=== PATIENT | female | born 1940 | race Caucasian/White ===

== ENCOUNTER 2020-08-26 17:55 | Inpatient (IN) | payer MEDICARE, SELFPAY ==
[2020-08-26 18:12] VITALS: BP 142/64; PULSE 78; RESP 15; TEMP 37.1; O2SAT 96; BMI 33.0
--- NOTE | 2020-08-26 18:47 | CT_ITS ---
EXAMINATION: CT CHEST, ABDOMEN AND PELVIS WITHOUT CONTRAST CLINICAL INFORMATION: Question of COVID pneumonia and back pain after falling on back with question of spine fracture. COMPARISON: No pertinent prior studies are available for comparison. TECHNIQUE: Multidetector volumetric imaging was performed from the thoracic inlet through the pubic symphysis without IV contrast. Sagittal and coronal reformatted images were obtained on the technologist's workstation. This CT examination was performed using dose optimization techniques as appropriate, variously including the following: *Automated exposure control. *Adjustment of mA and/or kV according to patient size (this includes techniques or standardized protocols for targeted exams where dose is matched to indication/reason for exam; i.e. extremities or head). *Use of iterative reconstruction technique. DLP: 3236 mGy-cm FINDINGS: CHEST: Lung: Some chronic-appearing changes are present in the lungs with some peripheral opacities and bronchiectasis, most marked in the lower lobes. Areas of peribronchial infiltrate are noted in the left upper lobe abutting the major fissure (series 35 images 167 through 211). Bibasilar atelectasis is seen. A 6 mm ovoid lung nodule is present at the right lung base (series 35 image 301). Mediastinum: A left chest wall pacer is present with one lead in the atria and the other at the right ventricular apex. Some small mediastinal nodes are present but no adenopathy is seen. The main pulmonary artery is prominent in size measuring 3.7 cm. Pericardium/Pleura: No significant effusion. No pleural mass or thickening. Chest Wall/Axilla: Unremarkable. No spine or rib fracture is seen. ABDOMEN/PELVIS: Peritoneal Space: No significant free air or free fluid identified. Liver, Gallbladder, Biliary Tree: The liver is normal in size, shape, and attenuation. Two hypodensities are seen in the liver, one in the right lobe measuring only 3 mm (series 39 image 18) and one in the left lobe measuring 0.8 cm. The larger abnormality measures 8 Hounsfield units and is consistent with a simple cyst. The smaller density is almost certainly a cyst as well. No suspicious focal hepatic lesion or biliary ductal dilatation is present. The gallbladder contains layering high density gallstones but is otherwise unremarkable without evidence of wall thickening, or obvious pericholecystic inflammatory changes. Pancreas: Unremarkable. Spleen: Unremarkable. Adrenal Glands: Unremarkable. Kidneys and Ureters: The kidneys are normal in size, shape, and attenuation. No hydronephrosis, hydroureter, or calculi seen. No perinephric stranding. Bladder: Unremarkable. Gastrointestinal Tract: Colonic diverticular changes are present without diverticulitis. The small and large bowel are otherwise unremarkable. The appendix is unremarkable. Abdominal Wall: No significant hernia is appreciated. Lymph Nodes: No lymphadenopathy. Vascular: Minimal calcific atherosclerotic change present in the aorta without aneurysm. The IVC appears unremarkable. PELVIC VISCERA: Status post hysterectomy. An abnormal adnexal mass is not seen. No free intraperitoneal fluid is seen. OSSEUS STRUCTURES: Mild degenerative changes are noted in the spine. No bony destructive lesions are seen. No acute spinal fracture is detected. CT/CT abdomen wo con IMPRESSION: 1. Chronic lung changes with one area of infiltrate abutting the fissure in the left upper lobe. 2. Small right lower lobe 6 mm pulmonary nodule. 3. Cholelithiasis without cholecystitis. 4. Incidentally noted hepatic cysts, colonic diverticular changes and hysterectomy. 5. No spinal fracture is seen.
--- NOTE | 2020-08-26 18:47 | CT_ITS ---
EXAMINATION: CT HEAD WITHOUT CONTRAST CT CERVICAL SPINE WITHOUT CONTRAST CLINICAL INFORMATION: Seizures. Fall. COMPARISON: None. TECHNIQUE: Imaging was performed from the skull base to vertex without intravenous administration of contrast. In addition, helical noncontrast CT imaging was acquired through the cervical spine and source images were reviewed along with axial reconstructions and sagittal and coronal MPRs. [This CT examination was performed using dose optimization techniques as appropriate, variously including the following: *Automated exposure control *Adjustment of mA and/or kV according to patient size (this includes techniques or standardized protocols for targeted exams where dose is matched to indication/reason for exam; i.e. extremities or head) *Use of iterative reconstruction technique] DLP: 10.25+620.54+ 517.99 +507.20 mGy-cm FINDINGS: HEAD: No intracranial mass, hemorrhage, or midline shift is visualized. There is atrophy with prominence of the ventricles and the sulci and hypodensity of the periventricular white matter due to chronic small vessel ischemic disease. There are vascular calcifications of the internal carotid arteries bilaterally. . No extra-axial collections are identified. The paranasal sinuses and mastoid air cells are well aerated. CERVICAL SPINE: There is no evidence of acute cervical spine fracture. Vertebral bodies remain normal in height. Cervical vertebrae have normal alignment. There is multilevel degenerative spondylosis of the cervical spine with disc height narrowing and endplate spurs and facet joint arthrosis No pre- or paravertebral soft tissue abnormality is identified. Limited assessment of the lung apices is unremarkable. CT/CT cervical spine wo con IMPRESSION: 1. No acute intracranial pathology. 2. No CT evidence of acute cervical spine fracture or traumatic subluxation
--- NOTE | 2020-08-26 19:00 | ED_ITS ---
HPI - General Adult General Chief complaint: Weakness Stated complaint: FALL,BODY PAIN Time Seen by Provider: 08/26/20 18:47 Source: patient Mode of arrival: ambulatory Limitations: no limitations History of Present Illness HPI narrative: Patient presents to ED for upper or lower back pain after falling out of bed. Patient states she had a seizure in her bed which caused her to roll lost a better fall to her back. Patient states also she has been feeling weak for the past 4 days with headache. Patient states her son was recently admitted for COVID-19. Patient admits to increased wheezing. Patient admits to increased wheezing. Patient states known history of seizure, but does not remember the name of her seizure medications. Onset (ago): minute(s) Related Data Allergies Allergy/AdvReac Type Severity Reaction Status Date / Time aspirin [ASPIRIN] Allergy Unknown VOMITING Verified 08/26/20 21:03 Review of Systems Review of Systems: Yes all other systems are reviewed and are negative Constitutional: Constitutional: Reports as per HPI, Reports no additional constitutional complaints, Reports body ache(s) and Reports headache(s) Comments: Weakness Eyes: Eyes: Reports as per HPI and Reports no additional eye complaints ENT: Reports system reviewed and no additional complaints, except as documented, Reports as per HPI and Reports headache(s) Cardiovascular: Cardiovascular: Reports as per HPI and Reports no additional cardiovascular complaints Respiratory: Respiratory: Reports as per HPI and Reports no additional respiratory complaints Gastrointestinal: Gastrointestinal: Reports as per HPI and Reports no additional gastrointestinal complaints Genitourinary: Genitourinary: Reports no additional female genitourinary com plaints and Reports as per HPI Musculoskeletal: Musculoskeletal: Reports no additional musculoskeletal complaints, Reports as per HPI and Reports back pain Neurologic: Reports system reviewed and no additional complaints, except as documented, Reports as per HPI and Reports headache(s) Psychiatric: Psychiatric: Reports no additional psychiatric complaints and Reports as per HPI PMF Past Medical History Medical History Arthritis Asthma Seizures Social History Social History Smoking Status: Current some day smoker Use of substances other than those prescribed or required for medical reasons: No Advance Directives: No Advance Directives Information Provided: Yes Physical Exam Vital Signs: Vital Signs: Last Vital Signs Temp 98.2 F 08/27/20 00:54 Pulse 78 08/27/20 00:54 Resp 20 08/27/20 00:54 BP 137/64 08/27/20 00:54 Pulse Ox 94 08/27/20 00:54 Body Mass Index 33.0 Const: General: cooperative, healthy appearing, comfortable, no acute distress, well developed, alert and awake HENMT: Head: Yes normal to inspection, Yes No palpable skull fracture present, Yes normocephalic, Yes atraumatic, No abrasion, No Thomson's sign, No contusion, No cranial bruits, No hematoma, No laceration, No occipital foramen tenderness, No palpable skull fracture, No raccoon eyes, No scalp tenderness, No Temporal artery tenderness present and No periorbital ecchymosis Eyes: General: appearance normal, both eyes and all related structures Neck: Neck: Yes normal visual inspection, Yes full ROM, Yes no lymphadenopathy, Yes no meningeal signs, Yes trachea midline, Yes supple and Yes tender (Positive for cervical spine tenderness) Chest: Chest palpation & inspection: normal inspection of the chest and normal palpation of entire chest wall Resp: Effort & Inspection: normal respiratory effort and able to speak in complete sentences Auscultation: wheezes expiratory wheezes and throughout Cardio: Jugular venous distension: no JVD Heart sounds: S1 normal heart sound present and S2 normal heart sound present GI: Inspection: Yes normal to inspection Palpation (GI): Soft to palpation, not firm, nontender, no guarding and not rigid Back/Spine/Pelvis: Back: back tenderness (Positive for thoracic and lumbar spine tenderness on palpation) Skin: General skin exam: no rashes or lesions noted and elasticity normal Neuro: General: no meningeal signs Extrem: General: Yes normal to inspection and Yes full ROM Psych: Appearance: grossly normal, well kempt and not disheveled Course Course Course Narrative: To patient stating COVID like symptoms and having seizure and informed to the ground patient have a medical workup. Patient admits to having history of seizure but does not remember her medications she takes for seizure. Patient had basic labs also troponin and BNP due to significant wheezing and COVID. Patient will have head CT C-spine dry chest and dry abdomen to make sure there is no spine fracture and bleed fracture. Reevaluation(s) Reevaluation #1: Patient positive for COVID-19 virus. Patient images negative for any fracture of the spine head or neck. Chest CT is negative for COVID pneumonia. Patient labs show RAMESH. Patient to be admitted for COVID and acute kidney injury. Patient not hypoxic. Time: 00:31 Reevaluation #2: Patient UA shows UTI which could be the cause of RAMESH. Due to downtime not able to order lactic acid, blood culture, or IV antibiotics. Will give verbal order for blood culture, lactic acid, and antibiotic. Time: 01:31 Medical Decision Making MDM Narrative Medical decision making narrative: COVID-19. RAMESH Lab Data Result diagrams: 08/26/20 19:57 08/26/20 23:31 Labs: Lab Results 08/26/20 08/26/20 08/26/20 Range/Units 19:57 19:57 19:57 WBC 6.1 (4.8-10.8) X10*3/uL RBC 3.78 L (4.20-5.50) X10*6/uL Hgb 11.7 L (12.0-16.0) g/dl Hct 35.9 L (37-47) % MCV 95.0 (80-98) fL MCH 31.0 (27.0-33.0) pg MCHC 32.6 (31.0-35.0) g/dl RDW 14.5 (11.0-16.0) % Plt Count 100 L (160-400) X10*3/uL MPV 12.5 H (9.4-12.3) fL Immature Gran % (Auto) 0.3 (0.0-0.4) % Neut % (Auto) 67.5 (45-73) % Lymph % (Auto) 19.3 L (20-40) % [place] % (Auto) 12.7 H (2-11) % Eos % (Auto) 0.0 (0-4) % Baso % (Auto) 0.2 (0-2) % Lymph # (Auto) 1.2 (1.2-4.9) X10*3/uL [place] # (Auto) 0.8 (0.1-1.2) X10*3/uL Eos # (Auto) 0.0 (0.0-0.4) X10*3/uL Baso # (Auto) 0.0 (0.0-0.2) X10*3/uL Abs Immat Gran (auto) 0.02 (0.00-0.03) X10*3/uL Absolute Neuts (auto) 4.1 (2.0-8.3) X10*3/uL Absolute Nucleated RBC 0.000 (0.0-0.012) X10*3/uL Nucleated RBC % (auto) 0.0 (0.0-0.2) /100WBC PT 12.7 (10.8-13.0) SEC INR 1.1 (0.9-1.1) APTT 30.8 (24.1-38.0) SEC Sodium 142 (135-145) mmol/L Potassium 4.3 (3.3-5.1) mmol/l Chloride 102 (96-108) mmol/L Carbon Dioxide 26 (22-29) mmol/L Anion Gap 18 (12-20) BUN 47 H (9-16) mg/dL Creatinine 3.24 H (0.5-1.4) mg/dL Estim Creat Clear Calc 14.5 Estimated GFR 14 Random Glucose 105 (60-115) mg/dL Calcium 8.3 L (8.4-10.2) mg/dL Ferritin 438 H (10-250) ng/mL Total Bilirubin 0.2 (0.0-1.0) mg/dL AST 47 H (5-31) U/L ALT 15 (0-31) U/L Alkaline Phosphatase 41 (39-117) U/L Lactate Dehydrogenase 514 H (122-220) U/L Troponin I High Sens (<3.5-17.0) ng/L B-Natriuretic Peptide (<100) pg/mL Total Protein 7.3 (6.5-8.0) g/dL Albumin 4.1 (3.5-5.0) g/dL Procalcitonin ng/mL Urine Color Urine Appearance Urine pH (5.0-8.0) Ur Specific [place] (1.005-1.025) Urine Protein (NEG-TRACE) MG/DL Urine Glucose (UA) (NEG) MG/DL Urine Ketones (NEG) MG/DL Urine Blood (NEG) Urine Nitrite (NEG) Ur Leukocyte Esterase (NEG) Urine RBC (0) /HPF Urine WBC (0-4) /HPF Ur Squamous Epith Cells /LPF Urine Bacteria /LPF Other Casts /LPF Coronavirus (PCR) (Negative) Influenza Type A (PCR) (Negative) Influenza Type B (PCR) (Negative) RSV RNA Qual (PCR) (Negative) 08/26/20 08/26/20 08/26/20 Range/Units 19:57 19:57 19:57 WBC (4.8-10.8) X10*3/uL RBC (4.20-5.50) X10*6/uL Hgb (12.0-16.0) g/dl Hct (37-47) % MCV (80-98) fL MCH (27.0-33.0) pg MCHC (31.0-35.0) g/dl RDW (11.0-16.0) % Plt Count (160-400) X10*3/uL MPV (9.4-12.3) fL Immature Gran % (Auto) (0.0-0.4) % Neut % (Auto) (45-73) % Lymph % (Auto) (20-40) % [place] % (Auto) (2-11) % Eos % (Auto) (0-4) % Baso % (Auto) (0-2) % Lymph # (Auto) (1.2-4.9) X10*3/uL [place] # (Auto) (0.1-1.2) X10*3/uL Eos # (Auto) (0.0-0.4) X10*3/uL Baso # (Auto) (0.0-0.2) X10*3/uL Abs Immat Gran (auto) (0.00-0.03) X10*3/uL Absolute Neuts (auto) (2.0-8.3) X10*3/uL Absolute Nucleated RBC (0.0-0.012) X10*3/uL Nucleated RBC % (auto) (0.0-0.2) /100WBC PT (10.8-13.0) SEC INR (0.9-1.1) APTT (24.1-38.0) SEC Sodium (135-145) mmol/L Potassium (3.3-5.1) mmol/l Chloride (96-108) mmol/L Carbon Dioxide (22-29) mmol/L Anion Gap (12-20) BUN (9-16) mg/dL Creatinine (0.5-1.4) mg/dL Estim Creat Clear Calc Estimated GFR Random Glucose (60-115) mg/dL Calcium (8.4-10.2) mg/dL Ferritin (10-250) ng/mL Total Bilirubin (0.0-1.0) mg/dL AST (5-31) U/L ALT (0-31) U/L Alkaline Phosphatase (39-117) U/L Lactate Dehydrogenase (122-220) U/L Troponin I High Sens 57.4 H (<3.5-17.0) ng/L B-Natriuretic Peptide 41 (<100) pg/mL Total Protein (6.5-8.0) g/dL Albumin (3.5-5.0) g/dL Procalcitonin 1.09 ng/mL Urine Color Urine Appearance Urine pH (5.0-8.0) Ur Specific [place] (1.005-1.025) Urine Protein (NEG-TRACE) MG/DL Urine Glucose (UA) (NEG) MG/DL Urine Ketones (NEG) MG/DL Urine Blood (NEG) Urine Nitrite (NEG) Ur Leukocyte Esterase (NEG) Urine RBC (0) /HPF Urine WBC (0-4) /HPF Ur Squamous Epith Cells /LPF Urine Bacteria /LPF Other Casts /LPF Coronavirus (PCR) POSITIVE A (Negative) Influenza Type A (PCR) NEGATIVE (Negative) Influenza Type B (PCR) NEGATIVE (Negative) RSV RNA Qual (PCR) NEGATIVE (Negative) 08/26/20 08/26/20 08/27/20 Range/Units 23:31 23:31 00:52 WBC (4.8-10.8) X10*3/uL RBC (4.20-5.50) X10*6/uL Hgb (12.0-16.0) g/dl Hct (37-47) % MCV (80-98) fL MCH (27.0-33.0) pg MCHC (31.0-35.0) g/dl RDW (11.0-16.0) % Plt Count (160-400) X10*3/uL MPV (9.4-12.3) fL Immature Gran % (Auto) (0.0-0.4) % Neut % (Auto) (45-73) % Lymph % (Auto) (20-40) % [place] % (Auto) (2-11) % Eos % (Auto) (0-4) % Baso % (Auto) (0-2) % Lymph # (Auto) (1.2-4.9) X10*3/uL [place] # (Auto) (0.1-1.2) X10*3/uL Eos # (Auto) (0.0-0.4) X10*3/uL Baso # (Auto) (0.0-0.2) X10*3/uL Abs Immat Gran (auto) (0.00-0.03) X10*3/uL Absolute Neuts (auto) (2.0-8.3) X10*3/uL Absolute Nucleated RBC (0.0-0.012) X10*3/uL Nucleated RBC % (auto) (0.0-0.2) /100WBC PT (10.8-13.0) SEC INR (0.9-1.1) APTT (24.1-38.0) SEC Sodium 142 (135-145) mmol/L Potassium 4.2 (3.3-5.1) mmol/l Chloride 107 (96-108) mmol/L Carbon Dioxide 21 L (22-29) mmol/L Anion Gap 18 (12-20) BUN 45 H (9-16) mg/dL Creatinine 2.93 H (0.5-1.4) mg/dL Estim Creat Clear Calc 16.0 Estimated GFR 15 Random Glucose 96 (60-115) mg/dL Calcium 8.1 L (8.4-10.2) mg/dL Ferritin (10-250) ng/mL Total Bilirubin 0.3 (0.0-1.0) mg/dL AST 43 H (5-31) U/L ALT 15 (0-31) U/L Alkaline Phosphatase 39 (39-117) U/L Lactate Dehydrogenase (122-220) U/L Troponin I High Sens 42.8 H (<3.5-17.0) ng/L B-Natriuretic Peptide (<100) pg/mL Total Protein 6.6 (6.5-8.0) g/dL Albumin 3.7 (3.5-5.0) g/dL Procalcitonin ng/mL Urine Color YELLOW Urine Appearance CLOUDY Urine pH 5.5 (5.0-8.0) Ur Specific [place] 1.015 (1.005-1.025) Urine Protein TRACE (NEG-TRACE) MG/DL Urine Glucose (UA) NEG (NEG) MG/DL Urine Ketones NEG (NEG) MG/DL Urine Blood 2+ H (NEG) Urine Nitrite POS H (NEG) Ur Leukocyte Esterase 1+ H (NEG) Urine RBC 1-4 (0) /HPF Urine WBC 30-49 H (0-4) /HPF Ur Squamous Epith Cells 2+ /LPF Urine Bacteria 4+ /LPF Other Casts /LPF Coronavirus (PCR) (Negative) Influenza Type A (PCR) (Negative) Influenza Type B (PCR) (Negative) RSV RNA Qual (PCR) (Negative) ECG Data Interpretation: Normal sinus rhythm. Normal EKG. Ventricular rate 70. NC interval 134. QRS 90. QTC 414. Negative STEMI Discharge Plan Discharge Clinical Impression: COVID-19, Acute kidney injury, Acute UTI Patient Disposition: Admitted As Inpatient
[2020-08-26 19:08] VITALS: PULSE 62; O2SAT 87
[2020-08-26] MEDS: Albuterol Sulfate 90 MCG 8 GM INHALER 4 PUFF INHALE (19:08)
[2020-08-26 19:59] VITALS: RESP 20
[2020-08-26 20:00] VITALS: BP 142/64; PULSE 62; RESP 20; TEMP 37.1; O2SAT 96
[2020-08-26 20:01] LABS: MANUAL DIFF FLAG NO
[2020-08-26 20:03] LABS: Basophils Percent Auto 0.2 % (0-2); Hematocrit 35.9 % (37-47); Hemoglobin 11.7 g/dl (12.0-16.0); Imm Gran Abs Auto 0.02 X10*3/uL (0.00-0.03); Imm Gran Pct Auto 0.3 % (0.0-0.4); Lymphocytes Absolute Auto 1.2 X10*3/uL (1.2-4.9); Lymphocytes Percent Auto 19.3 % (20-40); Mean Corpuscular HGB Conc 32.6 g/dl (31.0-35.0); Mean Platelet Volume 12.5 fL (9.4-12.3); Monocytes Absolute Auto 0.8 X10*3/uL (0.1-1.2); Monocytes Percent Auto 12.7 % (2-11); Neutrophils Absolute Auto 4.1 X10*3/uL (2.0-8.3); Neutrophils Percent Auto 67.5 % (45-73); Platelet Count 100 X10*3/uL (160-400); Red Blood Count 3.78 X10*6/uL (4.20-5.50); Red Cell Distribution Width 14.5 % (11.0-16.0); White Blood Count 6.1 X10*3/uL (4.8-10.8)
[2020-08-26 20:09] LABS: INTERNATIONAL NORM RATIO 1.1 (0.9-1.1); Prothrombin Time 12.7 SEC (10.8-13.0)
[2020-08-26] MEDS: 0.9 % Sodium Chloride 1,000 ML 999 ML IV ×2 (20:09→23:14)
[2020-08-26] MEDS: Magnesium Sulfate/H2O 2 GM/50 ML PIGGYBACK IV (20:09)
[2020-08-26 20:11] LABS: Partial Thromboplastin Time 30.8 SEC (24.1-38.0)
[2020-08-26 20:35] LABS: Alanine Aminotransferase 15 U/L (0-31); Albumin Level 4.1 g/dL (3.5-5.0); Alkaline Phosphatase 41 U/L (39-117); Anion Gap 18 (12-20); Aspartate Amino Transferase 47 U/L (5-31); Bilirubin Total 0.2 mg/dL (0.0-1.0); Blood Urea Nitrogen 47 mg/dL (9-16); Calcium 8.3 mg/dL (8.4-10.2); Carbon Dioxide 26 mmol/L (22-29); Chloride 102 mmol/L (96-108); Creatinine Clr Calc Pharmacy 14.5; Estimated Glomerular Filt Rate 14; Glucose Random 105 mg/dL (60-115); Lactate Dehydrogenase 514 U/L (122-220); Potassium 4.3 mmol/l (3.3-5.1); Sodium 142 mmol/L (135-145); Total Protein 7.3 g/dL (6.5-8.0)
[2020-08-26 20:44] LABS: B Type Natriuretic Peptide 41 pg/mL (<100); Troponin-I High Sensitivity 57.4 ng/L (<3.5-17.0)
--- NOTE | 2020-08-26 20:50 | PC.NURSE ---
Christopher Costa, son of pt, . Christopher concerned for lack of VNA services at home and son providing those services but is not qualified per Christopher. Request for case management. Akira heath aware. No order at this time- r/u admission.
[2020-08-26 20:55] LABS: Ferritin 438 ng/mL (10-250)
[2020-08-26 21:03] LABS: Procalcitonin 1.09 ng/mL
--- NOTE | 2020-08-26 21:18 | PC.NURSE ---
Patient's troponin is elevated and provider aware. Patient have a redraw in 3 hrs.
[2020-08-26 22:06] VITALS: BP 126/54; PULSE 67; RESP 21; TEMP 36.8; O2SAT 94
[2020-08-26 22:06] LABS: Influenza A PCR NEGATIVE (Negative); Influenza B PCR NEGATIVE (Negative); Resp Syncy Virus RNA Qual PCR NEGATIVE (Negative); SARS COV2 PCR INHOUSE POSITIVE (Negative)
[2020-08-27] VITALS (11 sets, daily range): BP systolic 98–179; BP diastolic 41–82; PULSE 57–88; RESP 16–25; TEMP 35.4–38.8; O2SAT 2–98
[2020-08-27] LABS: Alanine Aminotransferase 15 U/L (0-31); Albumin Level 3.7 g/dL (3.5-5.0); Alkaline Phosphatase 39 U/L (39-117); Anion Gap 18 (12-20); Aspartate Amino Transferase 43 U/L (5-31); Bilirubin Total 0.3 mg/dL (0.0-1.0); Blood Urea Nitrogen 45 mg/dL (9-16); Calcium 8.1 mg/dL (8.4-10.2); Carbon Dioxide 21 mmol/L (22-29); Chloride 107 mmol/L (96-108); Estimated Glomerular Filt Rate 15; Glucose Random 96 mg/dL (60-115); Potassium 4.2 mmol/l (3.3-5.1); Sodium 142 mmol/L (135-145); Total Protein 6.6 g/dL (6.5-8.0)
[2020-08-27 00:12] LABS: Troponin-I High Sensitivity 42.8 ng/L (<3.5-17.0)
--- NOTE | 2020-08-27 00:33 | ECG_ITS ---
Test Reason : SOB Blood Pressure : / mmHG Vent. Rate : 070 BPM Atrial Rate : 070 BPM P-R Int : 134 ms QRS Dur : 090 ms QT Int : 384 ms P-R-T Axes : 084 011 048 degrees QTc Int : 414 ms Normal sinus rhythm Normal ECG When compared with ECG of 15-APR-2002 13:15, QRS voltage has decreased Referred By: Mike Marcum Electronically Signed By:RAQUEL REINA
[2020-08-27 01:03] LABS: Appearance Urine CLOUDY; Color Urine YELLOW; Glucose Urine UA NEG (NEG); Leukocyte Esterase Urine 1+ (NEG); Nitrite Urine POS (NEG); PH 5.5 (5.0-8.0); Specific Gravity - Urine 1.015 (1.005-1.025); Urine Blood 2+ (NEG); Urine Ketones NEG (NEG); Urine Protein TRACE MG/DL (NEG-TRACE)
[2020-08-27 01:10] LABS: Bacteria Urine 4+ /LPF; Squamous Epithelial Cell Urine 2+ /LPF; WBC Urine 30-49 /HPF (0-4)
[2020-08-27] MEDS: Acetaminophen 325 MG TABLET 650 MG PO ×2 (02:57→11:59)
[2020-08-27] MEDS: cefTRIAXone sodium 1 GM in 0.9 % Sodium Chloride 50 ML IV ×2 (02:58→08:11)
[2020-08-27 03:07] LABS: Lactic Acid 1.2 mmol/L (0.5-2.0)
--- NOTE | 2020-08-27 06:52 | PM.IMHP ---
History of Present Illness Date of Service: 08/27/20 Chief Complaint: Weakness, shortness of breath, coughing This is a 80-year-old female with past medical history of seizures, asthma, arthritis who presents to the hospital with complaints of 4 day history of weakness, coughing, shortness of breath, loss of appetite, nausea. She also had 1 episode of falling while getting out of her bed today due to her severe weakness,patient is also complaining of on of headache.. Otherwise has no change in vision, no chest pain, no diarrhea and no constipation. Patient reports that she has been having low appetite and has not been eating or drinking much. She is also having wheezing. Her son Was recently diagnosed with COVID-19 and he is currently admitted to the hospital. She does complain of urinary urgency, frequency. No lower extremity edema. On arrival to the ED hemodynamically stable but then developed a temperature of 101.2?, respiratory rate of 25, blood pressure of 179/82. Satting 96% on room air When she initially presented to the hospital. Labs are significant for WBC count of 6.1, hemoglobin of 11.7, hematocrit 35.9, BUN of 45, creatinine of 3.24, (baseline unknown- no previous lab on EMR), AST of 43, LDH of 514, high sensitivity troponin of 57.4 dropped and 42.8. UA is positive for nitrites, leukocyte Estrace, WBC. COVID-[address] showing when area of infiltrate in the left upper lobe Past medical history: Seizures, asthma, arthritis Past surgical history: Denies Family history: Denies Social history: Comes from home, lives with family, denies any tobacco alcohol or illicit drugs Review of Systems Review of Systems: Yes all other systems are reviewed and are negative Constitutional: Constitutional: Reports headache(s) ENT: Reports headache(s) Neurologic: Reports system reviewed and no additional complaints, except as documented, Reports as per HPI and Reports headache(s) [facility] Medical History Arthritis Asthma Seizures Social History Smoking Status: Current some day smoker Use of substances other than those prescribed or required for medical reasons: No Advance Directives: No Advance Directives Information Provided: Yes Meds Allergies Allergy/AdvReac Type Severity Reaction Status Date / Time aspirin [ASPIRIN] Allergy Unknown VOMITING Verified 08/26/20 21:03 Physical Exam Vital Signs and Narrative: Vital Signs: Last Vital Signs Temp 98.6 F 08/27/20 06:00 Pulse 57 08/27/20 06:00 Resp 16 08/27/20 06:00 BP 130/59 L 08/27/20 06:00 Pulse Ox 96 08/27/20 06:00 Body Mass Index 33.0 Const: General: cooperative and no acute distress Orientation/consciousness: patient oriented x3 Eyes: General: appearance normal, both eyes and all related structures Resp: Effort & Inspection: normal respiratory effort and able to speak in complete sentences Cardio: Rate: regular rate Rhythm: regular rhythm GI: Palpation (GI): Soft to palpation Auscultation: normal bowel sounds Skin: Other: Patient appears dehydrated General skin exam: no rashes or lesions noted Neuro: General: patient oriented x3 Cognition (Neuro): normal cognition Extrem: General: Yes normal to inspection and Yes no pedal edema Results Labs CBC and Chem 7: 08/26/20 19:57 08/26/20 23:31 Labs: Laboratory Results - last 24 hr 08/26/20 08/26/20 08/26/20 19:57 19:57 19:57 MCV 95.0 MCH 31.0 MCHC 32.6 RDW 14.5 Plt Count 100 L MPV 12.5 H Immature Gran % (Auto) 0.3 Neut % (Auto) 67.5 Lymph % (Auto) 19.3 L [place] % (Auto) 12.7 H Eos % (Auto) 0.0 Baso % (Auto) 0.2 Lymph # (Auto) 1.2 [place] # (Auto) 0.8 Eos # (Auto) 0.0 Baso # (Auto) 0.0 Abs Immat Gran (auto) 0.02 Absolute Neuts (auto) 4.1 Absolute Nucleated RBC 0.000 Nucleated RBC % (auto) 0.0 PT 12.7 INR 1.1 APTT 30.8 Anion Gap 18 Estim Creat Clear Calc 14.5 Estimated GFR 14 Random Glucose 105 Lactic Acid Calcium 8.3 L Ferritin 438 H Total Bilirubin 0.2 AST 47 H ALT 15 Alkaline Phosphatase 41 Lactate Dehydrogenase 514 H Troponin I High Sens B-Natriuretic Peptide Total Protein 7.3 Albumin 4.1 Procalcitonin Urine Color Urine Appearance Urine pH Ur Specific Lottie Urine Protein Urine Glucose (UA) Urine Ketones Urine Blood Urine Nitrite Ur Leukocyte Esterase Urine RBC Urine WBC Ur Squamous Epith Cells Urine Bacteria Other Casts Coronavirus (PCR) Influenza Type A (PCR) Influenza Type B (PCR) RSV RNA Qual (PCR) 08/26/20 08/26/20 08/26/20 19:57 19:57 19:57 MCV MCH MCHC RDW Plt Count MPV Immature Gran % (Auto) Neut % (Auto) Lymph % (Auto) [place] % (Auto) Eos % (Auto) Baso % (Auto) Lymph # (Auto) [place] # (Auto) Eos # (Auto) Baso # (Auto) Abs Immat Gran (auto) Absolute Neuts (auto) Absolute Nucleated RBC Nucleated RBC % (auto) PT INR APTT Anion Gap Estim Creat Clear Calc Estimated GFR Random Glucose Lactic Acid Calcium Ferritin Total Bilirubin AST ALT Alkaline Phosphatase Lactate Dehydrogenase Troponin I High Sens 57.4 H B-Natriuretic Peptide 41 Total Protein Albumin Procalcitonin 1.09 Urine Color Urine Appearance Urine pH Ur Specific Lottie Urine Protein Urine Glucose (UA) Urine Ketones Urine Blood Urine Nitrite Ur Leukocyte Esterase Urine RBC Urine WBC Ur Squamous Epith Cells Urine Bacteria Other Casts Coronavirus (PCR) POSITIVE A Influenza Type A (PCR) NEGATIVE Influenza Type B (PCR) NEGATIVE RSV RNA Qual (PCR) NEGATIVE 08/26/20 08/26/20 08/27/20 23:31 23:31 00:52 MCV MCH MCHC RDW Plt Count MPV Immature Gran % (Auto) Neut % (Auto) Lymph % (Auto) [place] % (Auto) Eos % (Auto) Baso % (Auto) Lymph # (Auto) [place] # (Auto) Eos # (Auto) Baso # (Auto) Abs Immat Gran (auto) Absolute Neuts (auto) Absolute Nucleated RBC Nucleated RBC % (auto) PT INR APTT Anion Gap 18 Estim Creat Clear Calc 16.0 Estimated GFR 15 Random Glucose 96 Lactic Acid Calcium 8.1 L Ferritin Total Bilirubin 0.3 AST 43 H ALT 15 Alkaline Phosphatase 39 Lactate Dehydrogenase Troponin I High Sens 42.8 H B-Natriuretic Peptide Total Protein 6.6 Albumin 3.7 Procalcitonin Urine Color YELLOW Urine Appearance CLOUDY Urine pH 5.5 Ur Specific Lottie 1.015 Urine Protein TRACE Urine Glucose (UA) NEG Urine Ketones NEG Urine Blood 2+ H Urine Nitrite POS H Ur Leukocyte Esterase 1+ H Urine RBC 1-4 Urine WBC 30-49 H Ur Squamous Epith Cells 2+ Urine Bacteria 4+ Other Casts Coronavirus (PCR) Influenza Type A (PCR) Influenza Type B (PCR) RSV RNA Qual (PCR) 08/27/20 02:43 MCV MCH MCHC RDW Plt Count MPV Immature Gran % (Auto) Neut % (Auto) Lymph % (Auto) [place] % (Auto) Eos % (Auto) Baso % (Auto) Lymph # (Auto) [place] # (Auto) Eos # (Auto) Baso # (Auto) Abs Immat Gran (auto) Absolute Neuts (auto) Absolute Nucleated RBC Nucleated RBC % (auto) PT INR APTT Anion Gap Estim Creat Clear Calc Estimated GFR Random Glucose Lactic Acid 1.2 Calcium Ferritin Total Bilirubin AST ALT Alkaline Phosphatase Lactate Dehydrogenase Troponin I High Sens B-Natriuretic Peptide Total Protein Albumin Procalcitonin Urine Color Urine Appearance Urine pH Ur Specific Lottie Urine Protein Urine Glucose (UA) Urine Ketones Urine Blood Urine Nitrite Ur Leukocyte Esterase Urine RBC Urine WBC Ur Squamous Epith Cells Urine Bacteria Other Casts Coronavirus (PCR) Influenza Type A (PCR) Influenza Type B (PCR) RSV RNA Qual (PCR) Imaging Radiologist's Impressions: Impressions Abdomen CT 08/26/20 18:47 IMPRESSION: 1. Chronic lung changes with one area of infiltrate abutting the fissure in the left upper lobe. 2. Small right lower lobe 6 mm pulmonary nodule. 3. Cholelithiasis without cholecystitis. 4. Incidentally noted hepatic cysts, colonic diverticular changes and hysterectomy. 5. No spinal fracture is seen. Cervical Spine CT 08/26/20 18:47 IMPRESSION: 1. No acute intracranial pathology. 2. No CT evidence of acute cervical spine fracture or traumatic subluxation Chest CT 08/26/20 18:47 IMPRESSION: 1. Chronic lung changes with one area of infiltrate abutting the fissure in the left upper lobe. 2. Small right lower lobe 6 mm pulmonary nodule. 3. Cholelithiasis without cholecystitis. 4. Incidentally noted hepatic cysts, colonic diverticular changes and hysterectomy. 5. No spinal fracture is seen. Head CT 08/26/20 18:47 IMPRESSION: 1. No acute intracranial pathology. 2. No CT evidence of acute cervical spine fracture or traumatic subluxation Assessment and Plan (1) COVID-19: Status: Acute (2) Acute kidney injury: Status: Acute (3) Acute UTI: Status: Acute (4) Pneumonia: Qualifiers: Pneumonia type: due to unspecified organism Laterality: left Lung location: upper lobe of lung Qualified Code(s): J18.9 - Pneumonia, unspecified organism Status: Acute 80-year-old female with past medical history of asthma presents to the hospital with multiple complaints found to be COVID-19 positive, has RMAESH as well as UTI. # pneumonia - chest CT shows left upper lobe infiltrate - COVID PCR positive - given the on characteristics CT findings will treat her for community-acquired pneumonia with ceftriaxone and azithromycin -follow cultures # RAMESH - most likely due to dehydration versus secondary to UTI, as patient reports low oral intake - will start IV fluids - follow BMP # UTI - UA positive, has urinary symptoms - start on ceftriaxone - follow urine cultures # asthma - no hypoxia - has significant wheezing - will start on Solu-Medrol and albuterol inhaler PRN DVT ppx: lovenox will change to heparin given RAMESH
[2020-08-27] MEDS: Albuterol Sulfate 90 MCG 8 GM INHALER 4 PUFF INHALE (07:28)
[2020-08-27] MEDS: Azithromycin 500 MG TABLET PO (08:10)
[2020-08-27] MEDS: Enoxaparin Sodium 40 MG/0.4 ML SYRINGE SUBCUT (08:11)
[2020-08-27] MEDS: Lactated Ringers 1,000 ML 100 ML IVCONT ×2 (08:12→18:11)
--- NOTE | 2020-08-27 08:33 | PC.NURSE ---
iv in r ac infiltrated, new iv placed by this rn, heplock # 22 to l thumb
[2020-08-27] MEDS: 0.9 % Sodium Chloride Flush 3 ML SYRINGE IVFLUSH (10:00)
--- NOTE | 2020-08-27 10:38 | PC.NURSE ---
nurse to nurse given to january (rn) pt aware of plan of care.
--- NOTE | 2020-08-27 11:16 | PC.NURSE ---
prior care given prior to pt transport to c. lungs exp wheezing all lobes with increase movement. pt reposition hob up. note passed on to january grijalva) with transport.
--- NOTE | 2020-08-27 15:14 | MHC.CM.PN ---
CM spoke with patient by phone r/t COVID +. Patient reports she is independent, amb with a walker and her son lives with her. Patient does not have a HCP and declines filling one out today. Discussed discharge plan, home no services. Patient will need transportation home. IMM addressed. CM will continue to follow for discharge needs.
--- NOTE | 2020-08-27 15:41 | PM.EVENT ---
Event Note Date of Service: 08/29/20 Event Note: This patient is seen and examined , already seen and examined by the hernia by the hospitalist service earlier Patient says shortness of breath seems slowly improving Denies any chest pain or abdominal pain or fever or chills Physical exam : Cvs: rrr, [id number] , no murmur res: clear to auscultation ,no rhonchii or wheezing abd: no rebound or guarding ,nt, bs present. ext pulses present , no cyanosis neuro: axo3 , nonfocal. assessment and plan coordinated in APCs note, Agree with the plan in addition: Patient admitted for pneumonia, RAMESH on ckd , uti, Will continue gentle hydration and antibiotics Id and Nephro evaluation pending
[2020-08-27] MEDS: traMADoL HCL 50 MG TABLET 25 MG PO (18:07)
[2020-08-28] VITALS (7 sets, daily range): BP systolic 107–134; BP diastolic 53–92; PULSE 60–70; RESP 18–20; TEMP 36.4–36.7; O2SAT 92–96; BMI 33.0
[2020-08-28] MEDS: traMADoL HCL 50 MG TABLET PO ×2 (00:55→22:59)
[2020-08-28] MEDS: Lactated Ringers 1,000 ML 100 ML IVCONT ×2 (03:58→14:08)
[2020-08-28] MEDS: Enoxaparin Sodium 40 MG/0.4 ML SYRINGE SUBCUT (05:39)
[2020-08-28] MEDS: Azithromycin 500 MG TABLET PO (05:39)
[2020-08-28] MEDS: cefTRIAXone sodium 1 GM in 0.9 % Sodium Chloride 50 ML IV (05:43)
[2020-08-28] MEDS: Albuterol Sulfate 90 MCG 8 GM INHALER 4 PUFF INHALE ×2 (06:08→08:00)
[2020-08-28 06:28] LABS: MANUAL DIFF FLAG NO
[2020-08-28 07:18] LABS: Hematocrit 32.1 % (37-47); Hemoglobin 10.3 g/dl (12.0-16.0); Imm Gran Abs Auto 0.04 X10*3/uL (0.00-0.03); Imm Gran Pct Auto 0.6 % (0.0-0.4); Lymphocytes Percent Auto 15.2 % (20-40); Mean Corpuscular HGB Conc 32.1 g/dl (31.0-35.0); Mean Corpuscular Hemoglobin 30.5 pg (27.0-33.0); Mean Platelet Volume 13.2 fL (9.4-12.3); Monocytes Absolute Auto 0.5 X10*3/uL (0.1-1.2); Monocytes Percent Auto 7.1 % (2-11); Neutrophils Absolute Auto 4.9 X10*3/uL (2.0-8.3); Neutrophils Percent Auto 77.1 % (45-73); Platelet Count 124 X10*3/uL (160-400); Red Blood Count 3.38 X10*6/uL (4.20-5.50); Red Cell Distribution Width 14.2 % (11.0-16.0); White Blood Count 6.3 X10*3/uL (4.8-10.8)
[2020-08-28 07:31] LABS: Anion Gap 13 (12-20); Blood Urea Nitrogen 44 mg/dL (9-16); Calcium 8.2 mg/dL (8.4-10.2); Carbon Dioxide 25 mmol/L (22-29); Chloride 104 mmol/L (96-108); Creatinine Clr Calc Pharmacy 26.5; Estimated Glomerular Filt Rate 28; Glucose Random 159 mg/dL (60-115); Sodium 137 mmol/L (135-145)
[2020-08-28] MEDS: 0.9 % Sodium Chloride Flush 3 ML SYRINGE IVFLUSH ×2 (07:57→19:51)
[2020-08-28] MEDS: polyethylene glycoL 3350 17 GM POWD.PACK PO (12:42)
--- NOTE | 2020-08-28 13:22 | MHC.CM.PN ---
Patient is COVID+ on 3 liters O2 and Also IV Solu-Medrol. IV ceftriaxone for +UTI. Discharge plan is home no services. Patient will need transport home. CM will continue to follow for discharge needs.
[2020-08-28] MEDS: Acetaminophen 325 MG TABLET 650 MG PO (15:15)
--- NOTE | 2020-08-28 16:26 | PC.NURSE ---
pt tolerated OOB and up to recliner, has not been willing to get back to bed to change position. Pt lso states she is too weak to ambulate. She has tolerated small amount of meals, states she has a headache and has been medicated. Will continue to monitor
[2020-08-28] MEDS: Docusate Sodium 100 MG CAPSULE PO ×2 (19:50→19:51)
--- NOTE | 2020-08-28 22:07 | W.PM.IDCN ---
History of Present Illness Data of Consult Service Date: 08/28/20 Requesting physician: Muriel Lang Primary Care Provider: Unknown Physician HPI Reason for consult: shortness of breath She comes to ER with pain in arms and body after fall There also was question of seizure She has son with COVID Patient diagnosed with COVID She was initially not on oxygen and not candidate for Remdesivir Review of Systems Review of Systems: Yes all other systems are reviewed and are negative Constitutional: Constitutional: Reports headache(s) ENT: Reports headache(s) Neurologic: Reports system reviewed and no additional complaints, except as documented, Reports as per HPI and Reports headache(s) PMFSH Past Medical History Medical History (Updated 09/05/20 @ 13:03 by Muriel Lang MD) Arthritis Asthma Seizures Social History Social History Household Members: None Housing: Apartment Smoking Status: Current some day smoker Tobacco Type: Cigarette Cigarettes Per Day: 4 Second Hand Smoke Exposure: No service: No Current occupational status: disabled Meds Allergies Allergy/AdvReac Type Severity Reaction Status Date / Time aspirin [ASPIRIN] Allergy Unknown VOMITING Verified 08/26/20 21:03 Physical Exam Vital Signs: Vital Signs: Last Vital Signs Temp 98.0 F 08/28/20 20:00 Pulse 64 08/28/20 20:00 Resp 18 08/28/20 20:00 BP 125/70 08/28/20 20:00 Pulse Ox 94 08/28/20 20:00 Body Mass Index 33.0 Const: General: cooperative HENMT: Head: Yes normal to inspection Mouth: Normal oral and palatal mucosa present Resp: Effort & Inspection: normal respiratory effort Cardio: Rate: regular rate Rhythm: regular rhythm GI: Palpation (GI): Soft to palpation and nontender : General: Yes no CVA tenderness Back/Spine/Pelvis: Back: no CVA tenderness Skin: General skin exam: no rashes or lesions noted Assessment and Plan (1) Pneumonia: Qualifiers: Laterality: left Lung location: upper lobe of lung Pneumonia type: due to unspecified organism Qualified Code(s): J18.9 - Pneumonia, unspecified organism Status: Acute (2) COVID-19: Status: Acute Would continue Ceftriaxone due to high procalcitonin Would now give Remdesivir since on oxygen at this time and Dexamethasone Results Labs CBC & Chem 7: 08/28/20 05:22 09/03/20 05:15 Labs: Short CBC 08/28/20 Range/Units 05:22 WBC 6.3 (4.8-10.8) X10*3/uL Hgb 10.3 L (12.0-16.0) g/dl Hct 32.1 L (37-47) % Plt Count 124 L (160-400) X10*3/uL BMP 08/28/20 08/28/20 05:22 05:22 Sodium Cancelled 137 Potassium Cancelled 5.0 Chloride Cancelled 104 Carbon Dioxide Cancelled 25 BUN Cancelled 44 H Creatinine Cancelled 1.77 H Calcium Cancelled 8.2 L Microbiology Microbiology Results: Microbiology 08/27/20 Unknown Urine Catheterized - Straight Catheter Urine Culture - Final 08/27/20 02:44 Blood - Venous Blood Culture - Preliminary No growth after 24 hours. 08/27/20 02:44 Blood - Venous Blood Culture - Preliminary No growth after 24 hours.
[2020-08-29] VITALS (7 sets, daily range): BP systolic 106–152; BP diastolic 55–85; PULSE 60–86; RESP 18–24; TEMP 35.8–37; O2SAT 86–96
[2020-08-29] MEDS: Lactated Ringers 1,000 ML 100 ML IVCONT ×3 (00:27→23:19)
[2020-08-29] MEDS: Enoxaparin Sodium 40 MG/0.4 ML SYRINGE SUBCUT (05:29)
[2020-08-29] MEDS: cefTRIAXone sodium 1 GM in 0.9 % Sodium Chloride 50 ML IV (05:29)
[2020-08-29] MEDS: Azithromycin 500 MG TABLET PO (05:29)
[2020-08-29] MEDS: 0.9 % Sodium Chloride Flush 3 ML SYRINGE IVFLUSH (07:23)
[2020-08-29] MEDS: polyethylene glycoL 3350 17 GM POWD.PACK PO (07:23)
[2020-08-29] MEDS: Acetaminophen 325 MG TABLET 650 MG PO (09:45)
[2020-08-29] MEDS: guaiFENesin 100 MG/5 ML LIQUID PO ×3 (09:46→22:11)
[2020-08-29] MEDS: Magnesium Sulfate/H2O 2 GM/50 ML PIGGYBACK IV (10:54)
--- NOTE | 2020-08-29 12:00 | CONS_ITS ---
DATE OF SERVICE: 08/29/2020 CHIEF COMPLAINT: Shortness of breath and cough. HISTORY OF PRESENT ILLNESS: Mrs. Palomino is a 80-year-old woman with a known history of asthma and seizures, who apparently was in the usual state of health until about 4 days ago when she started developing weakness, cough, shortness of breath, and loss of appetite and she also had a fall due to significant weakness and also complained of headache. She was brought to the [facility] ED, was noted to be febrile. Respirations in 25. She was hypertensive. Initially in room air, but then she desaturated, now on oxygen. She was admitted to the Medical Surgical Unit, placed on respiratory medications and Solu-Medrol. The patient was then seen by Infectious Disease and approved for Remdesivir, but she has not started it as of yet. The patient has been coughing significantly. Does feel to have chest congestion, moderate to severe. Cannot expectorate at this time, having a hard time. She feels like her asthma is out of control. Has hard time breathing. She has been on a couple of liters to maintain her pulse ox above 90%. In the workup, she did have a CTA that was personally reviewed by me demonstrating some areas of patchy ground-glass opacities and nodular densities that will ultimately need followup. The patient also has some evidence of airspace disease suggesting the possibility of infectious bacterial etiologies superimposed on the viral syndrome and pneumonitis. The patient was placed on antibiotics for that reason. REVIEW OF SYSTEMS: Ten systems reviewed. Please refer to the HPI. Complains of constitutional symptoms stated above. Complains of respiratory symptoms stated above. Denies any chest pains or palpitations. Denies any GI symptoms at this time. Complains of musculoskeletal weakness. No rashes. The rest of the 10-organ system is negative. PAST MEDICAL HISTORY: History of seizures, asthma, and arthritis. PAST SURGICAL HISTORY: None. FAMILY HISTORY: Positive for asthma. SOCIAL HISTORY: Lives at home with her family. Denies any alcohol, drugs, or tobacco. ALLERGIES: INCLUDE ASPIRIN. CURRENT MEDICATIONS: She has been on Solu-Medrol 40 IV b.i.d., ceftriaxone and azithromycin for pneumonia, and albuterol 4 puffs every 2 hours p.r.n. PHYSICAL EXAMINATION: GENERAL: The patient is a little uncomfortable, mild respiratory distress. Pleasant lady, sitting up in bed, having coughing spells, and appears to have some chest congestion and difficult to expectorate at times. VITAL SIGNS: Blood pressure 152/45, breathing 24 times a minute, saturations 92% on 3 L, and pulse 73. HEENT: Pupils are equal and reactive to light. Oropharynx is clear. CARDIAC: Regular rhythm and regular rate. LUNGS: With significant expiratory wheezing and rhonchi throughout during the inspiratory and expiratory phase, primarily in the expiratory phase. ABDOMEN: Positive bowel sounds. Soft. EXTREMITIES: No clubbing or cyanosis. LABORATORY DATA: Her white count is normal at 6.3, hemoglobin 10.3, and platelet count 124. She does have a left shift. Serology positive for COVID on the . She has evidence of acute kidney injury. BUN 44 and creatinine 1.7. Coags; for some reason her D-dimer was not checked. IMAGING STUDIES: Pursued by me; CT scan of the chest was done demonstrating the ground-glass opacities and nodular densities that needs to be followed and some airspace disease, primarily in the left side and also bibasilar airspace disease noted. ASSESSMENT: Mrs. Palomino is a 80-year-old woman with a history of asthma with symptom of COVID-19, now with COVID-19 and asthma exacerbation. IMPRESSION: 1. Acute hypoxic respiratory failure secondary to the above resulting in worsening V/Q mismatch. 2. COVID-19 with viral pneumonia, pneumonitis. 3. Asthma exacerbation contributing to her work of breathing as well. 4. Acute kidney injury. RECOMMENDATIONS: 1. The patient needs to be started on Remdesivir. 2. Continue with the current antibiotics. 3. We will increase her Decadron to twice a day 6 mg and she continue using her MDI 4 puffs every 2 hours as needed. In the mean time, since we cannot use any nebulized therapy at this time, we will provide her with Breo and Spiriva to try to provide better bronchodilation as well. Magnesium could be also given to help with bronchodilation. We will continue to monitor her progress. The patient will need to have her inflammatory markers checked including D-dimer, ferritin, CRP, and the above. Once the patient is started on Remdesivir and she is on her steroids, we can assess her progress. Consider convalescent plasma if the patient is not able to mount an adequate immune response. Further recommendations based on forthcoming data. MD GREER Ibrahim/SEEMA / [phone]
--- NOTE | 2020-08-29 15:10 | P.PNIM_ITS ---
Subjective Subjective Date of Service: 08/30/20 Interval History: pneumonia ,ramesh Review of Systems Patient is still generalized weak, still short of breath at and has cough Denies any chest pain or fever or chills or abdominal pain or nausea or vomiting. Physical Exam Vital Signs: Vital Signs: Last Vital Signs Temp 98.6 F 08/29/20 12:00 Pulse 60 08/29/20 12:00 Resp 22 H 08/29/20 12:00 BP 128/60 08/29/20 12:00 Pulse Ox 93 08/29/20 12:00 Body Mass Index 33.0 Physical exam: Constitutional: Not in acute distress, somewhat short of breath but could able to answer questions Cvs: rrr, [id number] , no murmur res: air entry slightly diminshed , has rhonchi bilaterally abd: no rebound or guarding ,nt, bs present. ext pulses present , no cyanosis neuro: axo3 , nonfocal. Objective Data Current Medications Generic Name Dose Route Start Last Admin Trade Name Freq PRN Reason Stop Dose Admin Acetaminophen 650 mg 08/27/20 06:27 08/29/20 09:45 Acetaminophen 325 Mg Tablet PO 650 mg Q6H PRN Administration Pain, Mild (Pain Scale 1-3) Albuterol Sulfate 4 puff 08/27/20 07:16 08/28/20 08:00 Albuterol Sulfate 90 Mcg 8 Gm Inhaler INHALE 4 puff Q2H PRN Administration Shortness of Breath/Wheezing Azithromycin 500 mg 08/27/20 06:30 08/29/20 05:29 Azithromycin 500 Mg Tablet PO 500 mg Q24H FELICITY Administration Dexamethasone Sodium Phosphate 6 mg 08/29/20 21:00 Dexamethasone Sod Phosphate/Pf 10 Mg/Ml Vial IVPUSH BID FELICITY Docusate Sodium 100 mg 08/27/20 06:27 08/28/20 19:50 Docusate Sodium 100 Mg Capsule PO 100 mg DAILY PRN Administration Constipation Docusate Sodium 100 mg 08/28/20 21:00 08/28/20 19:51 Docusate Sodium 100 Mg Capsule PO 100 mg BEDTIME FELICITY Administration Enoxaparin Sodium 40 mg 08/27/20 06:30 08/29/20 05:29 Enoxaparin Sodium 40 Mg/0.4 Ml Syringe SUBCUT 40 mg Q24H FELICITY Administration Famotidine 40 mg 08/29/20 21:00 Famotidine 20 Mg Tablet PO BEDTIME FELICITY Fluticasone/Vilanterol 1 puff 08/30/20 08:00 Fluticasone/Vilanterol 200/25 Blst.W.Dev INHALE RDAILY FELICITY Guaifenesin 5 ml 08/29/20 10:00 08/29/20 09:46 Guaifenesin 100 Mg/5 Ml Liquid PO 5 ml Q6H FELICITY Administration Ceftriaxone Sodium 1 gm/ 50 mls @ 100 mls/hr 08/27/20 06:30 08/29/20 06:22 Sodium Chloride IV Infused Q24H FELICITY Infusion Lactated Ringer's 1,000 mls @ 100 mls/hr 08/27/20 06:30 08/29/20 09:47 Lr IVCONT 100 mls/hr .Q10H FELICITY Administration Ondansetron HCl 4 mg 08/27/20 06:27 Ondansetron Hcl 4 Mg/2 Ml Vial IVPUSH Q8H PRN Nausea and Vomiting Polyethylene Glycol 17 gm 08/28/20 12:15 08/29/20 07:23 Polyethylene Glycol 3350 17 Gm Powd.Pack PO 17 gm DAILY FELICITY Administration Sodium Chloride 3 ml 08/27/20 08:00 08/29/20 07:23 0.9 % Sodium Chloride Flush 3 Ml Syringe IVFLUSH 3 ml QSHIFT FELICITY Administration Tiotropium [place] 1 puff 08/30/20 08:00 Tiotropium [place] 18 Mcg Cap.W.Dev INHALE RDAILY FELICITY Zinc Sulfate 220 mg 08/30/20 09:00 Zinc Sulfate 220 Mg Capsule PO DAILY [facility] Labs CBC & Chem 7: 08/28/20 05:22 08/30/20 05:17 Microbiology Microbiology Results: Microbiology 08/27/20 02:44 Blood - Venous Blood Culture - Preliminary No growth after 48 hours. 08/27/20 02:44 Blood - Venous Blood Culture - Preliminary No growth after 48 hours. 08/27/20 Unknown Urine Catheterized - Straight Catheter Urine Culture - Final Assessment and Plan (1) COVID-19: Problem details: There is now concern over COVID worsening hypoxia Also with high procalcitonin concern over bacterial infection Status: Acute (2) Pneumonia: Status: Acute (3) Acute kidney injury: Status: Acute (4) Acute UTI: Status: Acute Assessment and Plan: 80-year-old female with past medical history of asthma presents to the hospital with multiple complaints found to be COVID-19 positive, has RAMESH as well as UTI. 1. pneumonia:chest CT shows left upper lobe infiltrate COVID PCR positive blood culture neg@48hrs has lymphopenia still sob pneumonia with ceftriaxone and azithromycin day2. pulm -adjusted dexamethsone 6 mg bid ldh, crp, ferritin levels Id follwoing to decide further use of remdesvir 2. RAMESH: most likely due to dehydration versus secondary to UTI, as patient reports low oral intake given start IV fluids BMP pending 3.UTI UA positive, has urinary symptoms follow urine cultures- mixed , repeat urine culturs. already on antibiotics for pneumonia. 4. asthma? exeberebation: continue albuterol , steriods , oxygen , added magnesium also
[2020-08-29 16:20] LABS: Anion Gap 13 (12-20); Blood Urea Nitrogen 38 mg/dL (9-16); C Reactive Protein 6.16 mg/dL (< or = 0.50); Calcium 8.5 mg/dL (8.4-10.2); Carbon Dioxide 29 mmol/L (22-29); Chloride 99 mmol/L (96-108); Creatinine Clr Calc Pharmacy 30.9; Estimated Glomerular Filt Rate 33; Glucose Random 162 mg/dL (60-115); Lactate Dehydrogenase 447 U/L (122-220); Potassium 4.8 mmol/l (3.3-5.1); Sodium 136 mmol/L (135-145)
[2020-08-29 16:38] LABS: Ferritin 407 ng/mL (10-250)
[2020-08-29] MEDS: Docusate Sodium 100 MG CAPSULE PO (20:13)
[2020-08-29] MEDS: Famotidine 20 MG TABLET 40 MG PO (20:13)
[2020-08-30] VITALS (8 sets, daily range): BP systolic 96–120; BP diastolic 62–80; PULSE 82–97; RESP 22–24; TEMP 36.2–36.6; O2SAT 93–98
[2020-08-30] MEDS: Azithromycin 500 MG TABLET PO (05:54)
[2020-08-30] MEDS: guaiFENesin 100 MG/5 ML LIQUID PO ×4 (05:54→21:18)
[2020-08-30] MEDS: Enoxaparin Sodium 40 MG/0.4 ML SYRINGE SUBCUT ×2 (05:54→21:19)
[2020-08-30] MEDS: cefTRIAXone sodium 1 GM in 0.9 % Sodium Chloride 50 ML IV (05:55)
[2020-08-30 07:19] LABS: Anion Gap 17 (12-20); Blood Urea Nitrogen 38 mg/dL (9-16); Calcium 8.1 mg/dL (8.4-10.2); Carbon Dioxide 24 mmol/L (22-29); Chloride 100 mmol/L (96-108); Creatinine Clr Calc Pharmacy 30.4; Estimated Glomerular Filt Rate 32; Glucose Random 162 mg/dL (60-115); Sodium 136 mmol/L (135-145)
--- NOTE | 2020-08-30 09:05 | XR_ITS ---
EXAMINATION: XR CHEST CLINICAL INFORMATION: Shortness of breath COMPARISON: Chest radiographs 01/09/2015 TECHNIQUE: Portable upright AP view of the chest was obtained. FINDINGS: There are sternotomy wires and a bipolar pacemaker. Heart is upper limits of normal size. The vascularity appears within normal. There is no cephalization of flow or currently lines. There are small bibasilar effusions with bibasilar subsegmental atelectasis. No lobar or segmental airspace consolidation. The hilar and mediastinal contours and bony structures are unremarkable. XR/XR chest 1V IMPRESSION: Small bibasilar effusions with bibasilar subsegmental atelectasis.
--- NOTE | 2020-08-30 09:10 | PM.PNPUL ---
Subjective Subjective Date of Service: 08/30/20 Interval history: The patient was seen on exam. Having increasing shortness of breath. Having a hard time with her cough. Objective Data Labs CBC & Chem 7: 08/28/20 05:22 08/30/20 05:17 Labs: Laboratory Results - last 24 hr 08/29/20 08/29/20 08/30/20 15:35 15:35 05:17 Sodium 136 136 Potassium 4.8 5.0 Chloride 99 100 Carbon Dioxide 29 24 Anion Gap 13 17 BUN 38 H 38 H Creatinine 1.52 H 1.54 H Estim Creat Clear Calc 30.9 30.4 Estimated GFR 33 32 Random Glucose 162 H 162 H Calcium 8.5 8.1 L Ferritin 407 H Lactate Dehydrogenase 447 H C-Reactive Protein 6.16 H Microbiology Microbiology Results: Microbiology 08/27/20 02:44 Blood - Venous Blood Culture - Preliminary No growth after 48 hours. 08/27/20 02:44 Blood - Venous Blood Culture - Preliminary No growth after 48 hours. 08/27/20 Unknown Urine Catheterized - Straight Catheter Urine Culture - Final Review of Systems Constitutional: Reports headache(s) Reports headache(s), Denies lip swelling and Denies tongue swelling Cardiovascular: Denies chest pain and Reports dyspnea Respiratory: Reports chest congestion, Reports cough, Reports dyspnea and Reports wheezing Gastrointestinal: Denies abdominal pain Musculoskeletal: Denies no additional musculoskeletal complaints Reports system reviewed and no additional complaints, except as documented, Reports as per HPI and Reports headache(s) Psychiatric: Denies no additional psychiatric complaints Hematologic/Lymphatic: Denies easy bleeding and Denies lymphadenopathy Allergic/Immunologic: Denies lip swelling, Denies tongue swelling and Reports wheezing Physical Exam Vital Signs: Vital Signs: Last Vital Signs Temp 97.1 F 08/30/20 03:16 Pulse 86 08/30/20 08:00 Resp 24 H 08/30/20 08:00 BP 110/73 08/30/20 08:00 Pulse Ox 96 08/30/20 08:00 Body Mass Index 33.0 Const: General: alert HENMT: General nose exam: Abnormal external nose present and Nasal discharge present Eyes: Pupils: Equal, round and reactive pupils present Neck: Neck: Yes normal visual inspection, Yes full ROM and Yes no lymphadenopathy Chest: Chest palpation & inspection: normal inspection of the chest Resp: Auscultation: diminished lung sounds Cardio: Rate: regular rate Rhythm: regular rhythm Heart sounds: S1 normal heart sound present and S2 normal heart sound present GI: Palpation (GI): Soft to palpation and nontender Auscultation: normal bowel sounds : General: Yes no CVA tenderness Back/Spine/Pelvis: Back: no CVA tenderness Skin: General skin exam: rashes and/or lesions noted Neuro: Cranial nerves: Yes Equal, round and reactive pupils present Assessment and Plan Assessment and plan (1) Acute respiratory failure: Status: Acute Assessment and Plan: Chest x-ray today Continue oxygen supplementation ABG worsening respiratory status (2) Pneumonia: Status: Acute Assessment and Plan: Continue antibiotic coverage, will switch to doxycycline for better Staph coverage (3) COVID-19: Problem details: There is now concern over COVID worsening hypoxia Also with high procalcitonin concern over bacterial infection Status: Acute Assessment and Plan: Infectious disease involved Continue Decadron, currently at a higher dose to to her asthma exacerbation Check D-dimer (4) Asthma: Status: Acute Assessment and Plan: Continue HFA every 2 hours Solu-Medrol 125 mg Iv x1 now Time Spent With Patient Time: Total time spent is greater than 50% in coordination of care (as documented) at patient's floor/unit and/or counseling patient: Time with patient: 15 - 24 minutes
[2020-08-30] MEDS: Fluticasone/Vilanterol 200/25 BLST.W.DEV 1 PUFF INHALE (09:14)
[2020-08-30] MEDS: polyethylene glycoL 3350 17 GM POWD.PACK PO (10:02)
[2020-08-30] MEDS: methylPREDNISolone Sod Succ/PF 125 MG/2 ML VIAL IVPUSH (10:03)
[2020-08-30] MEDS: Zinc Sulfate 220 MG CAPSULE PO (10:03)
[2020-08-30] MEDS: Doxycycline Hyclate 100 MG in 0.9 % Sodium Chloride 250 ML 166.67 MG IV (10:03)
[2020-08-30 10:09] LABS: D Dimer 869 NG/ML
[2020-08-30] MEDS: Lactated Ringers 1,000 ML 100 ML IVCONT ×2 (10:19→22:49)
[2020-08-30] MEDS: Acetaminophen 325 MG TABLET 650 MG PO ×2 (11:22→21:25)
--- NOTE | 2020-08-30 14:26 | MHC.CM.PN ---
CM called [facility] who patient states is her PCP, states patient does not have a PCP. CM spoke with patient and instructed her to call her insurance company and pick a PCP. Instructed patient to see new PCP within a week of discharge. Discharge plan is home no services. Patient will need transportation home. CM will continue to follow for discharge.
--- NOTE | 2020-08-30 15:57 | P.PNIM_ITS ---
Subjective Subjective Date of Service: 08/30/20 Interval History: Seen in f/u for covid pna and renal failure ROS: sob, fever Hematologic/Lymphatic Physical Exam Vital Signs: Vital Signs: Last Vital Signs Temp 97.8 F 08/30/20 11:43 Pulse 82 08/30/20 11:43 Resp 24 H 08/30/20 11:43 BP 119/62 08/30/20 11:43 Pulse Ox 98 08/30/20 11:43 Body Mass Index 33.0 Objective Data Current Medications Generic Name Dose Route Start Last Admin Trade Name Freq PRN Reason Stop Dose Admin Acetaminophen 650 mg 08/27/20 06:27 08/30/20 11:22 Acetaminophen 325 Mg Tablet PO 650 mg Q6H PRN Administration Pain, Mild (Pain Scale 1-3) Albuterol Sulfate 4 puff 08/27/20 07:16 08/28/20 08:00 Albuterol Sulfate 90 Mcg 8 Gm Inhaler INHALE 4 puff Q2H PRN Administration Shortness of Breath/Wheezing Dexamethasone Sodium Phosphate 6 mg 08/29/20 21:00 08/30/20 10:02 Dexamethasone Sod Phosphate/Pf 10 Mg/Ml Vial IVPUSH 6 mg BID FELICITY Administration Docusate Sodium 100 mg 08/27/20 06:27 08/28/20 19:50 Docusate Sodium 100 Mg Capsule PO 100 mg DAILY PRN Administration Constipation Docusate Sodium 100 mg 08/28/20 21:00 08/29/20 20:13 Docusate Sodium 100 Mg Capsule PO 100 mg BEDTIME FELICITY Administration Enoxaparin Sodium 40 mg 08/27/20 06:30 08/30/20 05:54 Enoxaparin Sodium 40 Mg/0.4 Ml Syringe SUBCUT 40 mg Q24H FELICITY Administration Famotidine 40 mg 08/29/20 21:00 08/29/20 20:13 Famotidine 20 Mg Tablet PO 40 mg BEDTIME FELICITY Administration Fluticasone/Vilanterol 1 puff 08/30/20 08:00 08/30/20 09:14 Fluticasone/Vilanterol 200/25 Blst.W.Dev INHALE 1 puff RDAILY FELICITY Administration Guaifenesin 5 ml 08/29/20 10:00 08/30/20 10:03 Guaifenesin 100 Mg/5 Ml Liquid PO 5 ml Q6H FELICITY Administration Ceftriaxone Sodium 1 gm/ 50 mls @ 100 mls/hr 08/27/20 06:30 08/30/20 06:27 Sodium Chloride IV Infused Q24H FELICITY Infusion Lactated Ringer's 1,000 mls @ 80 mls/hr 08/27/20 06:30 08/30/20 10:19 Lr IVCONT 100 mls/hr .[id number] FELICITY Administration Doxycycline Hyclate 100 mg/ 250 mls @ 166.67 mls/hr 08/30/20 10:00 08/30/20 11:43 Sodium Chloride IV Infused Q12H FELICITY Infusion Ondansetron HCl 4 mg 08/27/20 06:27 Ondansetron Hcl 4 Mg/2 Ml Vial IVPUSH Q8H PRN Nausea and Vomiting Polyethylene Glycol 17 gm 08/28/20 12:15 08/30/20 10:02 Polyethylene Glycol 3350 17 Gm Powd.Pack PO 17 gm DAILY FELICITY Administration Sodium Chloride 3 ml 08/27/20 08:00 08/30/20 08:06 0.9 % Sodium Chloride Flush 3 Ml Syringe IVFLUSH Not Given QSHIFT FELICITY Tiotropium [place] 1 puff 08/30/20 08:00 08/30/20 09:14 Tiotropium [place] 18 Mcg Cap.W.Dev INHALE 1 puff RDAILY FELICITY Administration Zinc Sulfate 220 mg 08/30/20 09:00 08/30/20 10:03 Zinc Sulfate 220 Mg Capsule PO 220 mg DAILY FELICITY Administration Labs CBC & Chem 7: 08/28/20 05:22 08/30/20 05:17 Microbiology Microbiology Results: Microbiology 08/27/20 02:44 Blood - Venous Blood Culture - Preliminary No growth after 48 hours. 08/27/20 02:44 Blood - Venous Blood Culture - Preliminary No growth after 48 hours. 08/27/20 Unknown Urine Catheterized - Straight Catheter Urine Culture - Final Assessment and Plan (1) Acute respiratory failure: Status: Acute (2) Pneumonia: Status: Acute (3) COVID-19: Status: Acute (4) Asthma: Status: Acute Assessment and Plan: 80-year-old female with past medical history of asthma presents to the hospital with multiple complaints found to be COVID-19 positive, has RAMESH as well as UTI. 1.Covid 19 with PNA -Dexamethasone -Doxy and Ceftriaxone -Oxygen -No Remdesevir due to renal failure 2. RAMESH: Improving 3.UTI--Ceftriaxone as above 4. asthma? exeberebation: continue albuterol , steriods
[2020-08-30] MEDS: 0.9 % Sodium Chloride Flush 3 ML SYRINGE IVFLUSH ×2 (16:37→23:57)
--- NOTE | 2020-08-30 17:18 | PC.NURSE ---
P-patient c/o increased SOB I-repositioned patient,inhalers adm per respiratory therapist E-patient feels much better,sat 96% on 5 l of oxygen
[2020-08-30] MEDS: Albuterol Sulfate 90 MCG 8 GM INHALER 4 PUFF INHALE (17:28)
[2020-08-30] MEDS: Famotidine 20 MG TABLET 40 MG PO (21:19)
[2020-08-30] MEDS: Docusate Sodium 100 MG CAPSULE PO (21:19)
--- NOTE | 2020-08-30 21:41 | PC.NURSE ---
P-IV bleeding in left thumb I-removed angio,RN attempet to insert new IV but unable,resource nurse attempted also but unable,nursing supervisor lead burning notified E-awaiting for nursing supervisor lead burning
[2020-08-31] VITALS (8 sets, daily range): BP systolic 105–117; BP diastolic 52–81; PULSE 84–102; RESP 16–24; TEMP 36.4–37.1; O2SAT 83–97
--- NOTE | 2020-08-31 | XR_ITS ---
EXAMINATION: XR CHEST CLINICAL INFORMATION: Shortness of breath COMPARISON: Chest x-ray 08/30/2020 TECHNIQUE: Frontal view of the chest was obtained. FINDINGS: Cardiac silhouette is normal in size. Dual lead pacemaker in stable position. Low lung volumes. Stable small left-sided pleural effusion with overlying airspace disease. Interval improvement in aeration of the right lung base. No pneumothorax. XR/XR chest 1V IMPRESSION: Similar left basilar airspace disease with improved aeration of the right lung base.
[2020-08-31] MEDS: Enoxaparin Sodium 40 MG/0.4 ML SYRINGE SUBCUT ×2 (05:45→20:34)
[2020-08-31] MEDS: cefTRIAXone sodium 1 GM in 0.9 % Sodium Chloride 50 ML IV (05:45)
[2020-08-31] MEDS: guaiFENesin 100 MG/5 ML LIQUID PO ×3 (05:45→17:14)
[2020-08-31] MEDS: Fluticasone/Vilanterol 200/25 BLST.W.DEV 1 PUFF INHALE (08:19)
[2020-08-31] MEDS: Albuterol Sulfate 90 MCG 8 GM INHALER 4 PUFF INHALE ×2 (08:24→11:40)
[2020-08-31] MEDS: polyethylene glycoL 3350 17 GM POWD.PACK PO (10:28)
[2020-08-31] MEDS: 0.9 % Sodium Chloride Flush 3 ML SYRINGE IVFLUSH ×2 (10:28→17:14)
[2020-08-31] MEDS: Zinc Sulfate 220 MG CAPSULE PO (10:28)
[2020-08-31] MEDS: Acetaminophen 325 MG TABLET 650 MG PO ×2 (11:08→17:14)
--- NOTE | 2020-08-31 13:51 | P.PNIM_ITS ---
Subjective Subjective Date of Service: 08/31/20 Interval History: Seen in f/u for covid pna and renal failure. She seemed very anxious this morning and complianing of not beig able to breath. Her vitals were not changed. Repeat CXR was unchanged. She remains hypoxic on 5 liters of oxygen by nasal canula ROS: sob, fever Physical Exam Vital Signs: Vital Signs: Last Vital Signs Temp 97.6 F 08/31/20 12:00 Pulse 97 08/31/20 12:00 Resp 22 H 08/31/20 12:00 BP 117/70 08/31/20 12:00 Pulse Ox 94 08/31/20 12:00 Body Mass Index 33.0 General: AO X 3, anxious Resp: CTA bilateral CVS: S1,S2,RRR GI: +BS, NT, no distention Skin: No rash Neuro: motor grossly intact Psych: appropriate affect Objective Data Current Medications Generic Name Dose Route Start Last Admin Trade Name Freq PRN Reason Stop Dose Admin Acetaminophen 650 mg 08/27/20 06:27 08/31/20 11:08 Acetaminophen 325 Mg Tablet PO 650 mg Q6H PRN Administration Pain, Mild (Pain Scale 1-3) Albuterol Sulfate 4 puff 08/27/20 07:16 08/31/20 11:40 Albuterol Sulfate 90 Mcg 8 Gm Inhaler INHALE 4 puff Q2H PRN Administration Shortness of Breath/Wheezing Cefuroxime Axetil 500 mg 08/31/20 21:00 Cefuroxime Axetil 500 Mg Tablet PO BID FELICITY Dexamethasone Sodium Phosphate 6 mg 08/29/20 21:00 08/31/20 10:28 Dexamethasone Sod Phosphate/Pf 10 Mg/Ml Vial IVPUSH 6 mg BID FELICITY Administration Docusate Sodium 100 mg 08/27/20 06:27 08/28/20 19:50 Docusate Sodium 100 Mg Capsule PO 100 mg DAILY PRN Administration Constipation Docusate Sodium 100 mg 08/28/20 21:00 08/30/20 21:19 Docusate Sodium 100 Mg Capsule PO 100 mg BEDTIME FELICITY Administration Doxycycline Hyclate 100 mg 08/31/20 21:00 Doxycycline Hyclate 100 Mg Tablet PO BID FELICITY Enoxaparin Sodium 40 mg 08/30/20 19:00 08/31/20 05:45 Enoxaparin Sodium 40 Mg/0.4 Ml Syringe SUBCUT 40 mg Q12H FELICITY Administration Famotidine 40 mg 08/29/20 21:00 08/30/20 21:19 Famotidine 20 Mg Tablet PO 40 mg BEDTIME FELICITY Administration Fluticasone/Vilanterol 1 puff 08/30/20 08:00 08/31/20 08:19 Fluticasone/Vilanterol 200/25 Blst.W.Dev INHALE 1 puff RDAILY FELICITY Administration Guaifenesin 5 ml 08/29/20 10:00 08/31/20 10:28 Guaifenesin 100 Mg/5 Ml Liquid PO 5 ml Q6H FELICITY Administration Lactated Ringer's 1,000 mls @ 80 mls/hr 08/27/20 06:30 08/31/20 10:19 Lr IVCONT Infused .[id number] FELICITY Infusion Ondansetron HCl 4 mg 08/27/20 06:27 Ondansetron Hcl 4 Mg/2 Ml Vial IVPUSH Q8H PRN Nausea and Vomiting Polyethylene Glycol 17 gm 08/28/20 12:15 08/31/20 10:28 Polyethylene Glycol 3350 17 Gm Powd.Pack PO 17 gm DAILY FELICITY Administration Sodium Chloride 3 ml 08/27/20 08:00 08/31/20 10:28 0.9 % Sodium Chloride Flush 3 Ml Syringe IVFLUSH 3 ml QSHIFT FELICITY Administration Tiotropium [place] 1 puff 08/30/20 08:00 08/31/20 08:19 Tiotropium [place] 18 Mcg Cap.W.Dev INHALE 1 puff RDAILY FELICITY Administration Zinc Sulfate 220 mg 08/30/20 09:00 08/31/20 10:28 Zinc Sulfate 220 Mg Capsule PO 220 mg DAILY FELICITY Administration Labs CBC & Chem 7: 08/28/20 05:22 08/30/20 05:17 Microbiology Microbiology Results: Microbiology 08/27/20 02:44 Blood - Venous Blood Culture - Preliminary No growth after 48 hours. 08/27/20 02:44 Blood - Venous Blood Culture - Preliminary No growth after 48 hours. 08/27/20 Unknown Urine Catheterized - Straight Catheter Urine Culture - Final Assessment and Plan (1) Acute respiratory failure: Status: Acute (2) Pneumonia: Status: Acute (3) COVID-19: Status: Acute (4) Asthma: Status: Acute Assessment and Plan: 80-year-old female with past medical history of asthma presents to the hospital with multiple complaints found to be COVID-19 positive, has RAMESH as well as UTI. 1.Covid 19 with likely viral PNA with actute hypoxic respiratory failure -Dexamethasone -Doxy and Ceftin PO -Oxygen -No Remdesevir due to renal failure 2. RAMESH: Improving, check labs tomorrow 3.UTI--Ceftriaxone as above 4. asthma? exeberebation: continue albuterol , steriods 5. Anxiety --low dose Ativan
[2020-08-31 14:52] LABS: Pt Ventilation O2% 5 L
[2020-08-31 15:01] LABS: ABG PCO2 35 mmHg (32-45); Base Excess ABG 1.7; HCO3 ABG 25 mmol/L (22-26); PO2 ABG 73 mmHg (83-108); pH ABG 7.46 (7.35-7.45)
[2020-08-31] MEDS: Famotidine 20 MG TABLET 40 MG PO (20:30)
--- NOTE | 2020-08-31 22:05 | PM.IDPN ---
Subjective Subjective Date of Service: 09/15/20 Interval History: She has no complaints Objective Data Labs CBC & Chem 7: 08/28/20 05:22 09/03/20 05:15 Labs: Laboratory Results - last 24 hr 08/31/20 14:45 ABG pH 7.46 H ABG pCO2 35 ABG pO2 73 L ABG HCO3 25 ABG O2 Saturation 94.0 ABG Base Excess 1.7 Oxygen Given 5 L Microbiology Microbiology Results: Microbiology 08/27/20 02:44 Blood - Venous Blood Culture - Preliminary No growth after 48 hours. 08/27/20 02:44 Blood - Venous Blood Culture - Preliminary No growth after 48 hours. 08/27/20 Unknown Urine Catheterized - Straight Catheter Urine Culture - Final Physical Exam Vital Signs: Vital Signs: Last Vital Signs Temp 98.1 F 08/31/20 19:30 Pulse 100 08/31/20 19:30 Resp 20 08/31/20 19:30 BP 110/81 08/31/20 19:30 Pulse Ox 95 08/31/20 19:30 Body Mass Index 33.0 Const: General: cooperative Resp: Effort & Inspection: normal respiratory effort Cardio: Rate: regular rate Rhythm: regular rhythm GI: Palpation (GI): Soft to palpation and nontender Assessment and Plan Assessment and plan (1) COVID-19: Status: Acute Assessment and Plan: Continue Ceftriaxone and Doxycycline possible 7 days total, may finish Ceftin and Doxycycline po, (2) Pneumonia: Status: Acute Time Spent With Patient Time: Total time spent is greater than 50% in coordination of care (as documented) at patient's floor/unit and/or counseling patient: Time with patient: 15 - 24 minutes
[2020-09-01] VITALS (7 sets, daily range): BP systolic 124–145; BP diastolic 66–84; PULSE 90–107; RESP 21–28; TEMP 36.4–36.8; O2SAT 95–97
[2020-09-01] MEDS: 0.9 % Sodium Chloride Flush 3 ML SYRINGE IVFLUSH ×3 (00:18→15:19)
[2020-09-01] MEDS: oxyCODONE HCl Immed Release 5 MG TABLET PO (02:12)
[2020-09-01] MEDS: Enoxaparin Sodium 40 MG/0.4 ML SYRINGE SUBCUT ×2 (06:03→20:36)
[2020-09-01] MEDS: Albuterol Sulfate 90 MCG 8 GM INHALER 4 PUFF INHALE ×2 (06:11→08:08)
[2020-09-01] MEDS: Fluticasone/Vilanterol 200/25 BLST.W.DEV 1 PUFF INHALE (08:03)
[2020-09-01] MEDS: ondansetron HCL 4 MG/2 ML VIAL IVPUSH (09:52)
[2020-09-01] MEDS: Zinc Sulfate 220 MG CAPSULE PO (09:53)
[2020-09-01] MEDS: Acetaminophen 325 MG TABLET 650 MG PO ×2 (09:53→21:51)
--- NOTE | 2020-09-01 11:47 | HO.PM.IMPN ---
Subjective Subjective Date of Service: 09/01/20 Interval History: Seen in f/u for covid 19 with acute hypoxic respirator failure Review of Systems Gen: no fever Resp: + sob, cough better CV: no chest, no VERDE, no leg edema GI: No n/v, no abd pain Neuro: No confusion Physical Exam Vital Signs: Vital Signs: Last Vital Signs Temp 97.5 F 09/01/20 08:00 Pulse 90 09/01/20 08:00 Resp 21 H 09/01/20 08:00 BP 124/66 09/01/20 08:00 Pulse Ox 95 09/01/20 08:00 Body Mass Index 33.0 Const: General: cooperative and no acute distress Orientation/consciousness: patient oriented x3 Resp: Effort & Inspection: normal respiratory effort and able to speak in complete sentences Cardio: Rate: regular rate Rhythm: regular rhythm GI: Palpation (GI): Soft to palpation Auscultation: normal bowel sounds Skin: General skin exam: no rashes or lesions noted Neuro: General: patient oriented x3 Cognition (Neuro): normal cognition Extrem: General: Yes normal to inspection and Yes no pedal edema Objective Data Current Medications Generic Name Dose Route Start Last Admin Trade Name Freq PRN Reason Stop Dose Admin Acetaminophen 650 mg 08/27/20 06:27 09/01/20 09:53 Acetaminophen 325 Mg Tablet PO 650 mg Q6H PRN Administration Pain, Mild (Pain Scale 1-3) Albuterol Sulfate 4 puff 08/27/20 07:16 09/01/20 08:08 Albuterol Sulfate 90 Mcg 8 Gm Inhaler INHALE 4 puff Q2H PRN Administration Shortness of Breath/Wheezing Cefuroxime Axetil 500 mg 08/31/20 21:00 09/01/20 09:53 Cefuroxime Axetil 500 Mg Tablet PO 500 mg BID FELICITY Administration Dexamethasone Sodium Phosphate 6 mg 08/29/20 21:00 09/01/20 09:53 Dexamethasone Sod Phosphate/Pf 10 Mg/Ml Vial IVPUSH 6 mg BID FELICITY Administration Docusate Sodium 100 mg 08/27/20 06:27 08/28/20 19:50 Docusate Sodium 100 Mg Capsule PO 100 mg DAILY PRN Administration Constipation Docusate Sodium 100 mg 08/28/20 21:00 08/31/20 20:31 Docusate Sodium 100 Mg Capsule PO Not Given BEDTIME FELICITY Doxycycline Hyclate 100 mg 08/31/20 21:00 09/01/20 09:53 Doxycycline Hyclate 100 Mg Tablet PO 100 mg BID FELICITY Administration Enoxaparin Sodium 40 mg 08/30/20 19:00 09/01/20 06:03 Enoxaparin Sodium 40 Mg/0.4 Ml Syringe SUBCUT 40 mg Q12H FELICITY Administration Famotidine 40 mg 08/29/20 21:00 08/31/20 20:30 Famotidine 20 Mg Tablet PO 40 mg BEDTIME FELICITY Administration Fluticasone/Vilanterol 1 puff 08/30/20 08:00 09/01/20 08:03 Fluticasone/Vilanterol 200/25 Blst.W.Dev INHALE 1 puff RDAILY [facility] Administration Guaifenesin 5 ml 08/29/20 10:00 09/01/20 09:54 Guaifenesin 100 Mg/5 Ml Liquid PO Not Given Q6H [facility] Lactated Ringer's 1,000 mls @ 80 mls/hr 08/27/20 06:30 09/01/20 09:54 Lr IVCONT Not Given .[id number] [facility] Ondansetron HCl 4 mg 08/27/20 06:27 09/01/20 09:52 Ondansetron Hcl 4 Mg/2 Ml Vial IVPUSH 4 mg Q8H PRN Administration Nausea and Vomiting Polyethylene Glycol 17 gm 08/28/20 12:15 09/01/20 09:54 Polyethylene Glycol 3350 17 Gm Powd.Pack PO Not Given DAILY [facility] Sodium Chloride 3 ml 08/27/20 08:00 09/01/20 09:53 0.9 % Sodium Chloride Flush 3 Ml Syringe IVFLUSH 3 ml QSHIFT [facility] Administration Tiotropium [place] 1 puff 08/30/20 08:00 09/01/20 08:04 Tiotropium [place] 18 Mcg Cap.W.Dev INHALE 1 puff RDAILY [facility] Administration Zinc Sulfate 220 mg 08/30/20 09:00 09/01/20 09:53 Zinc Sulfate 220 Mg Capsule PO 220 mg DAILY [facility] Administration Labs CBC & Chem 7: 08/28/20 05:22 08/30/20 05:17 Microbiology Microbiology Results: Microbiology 08/27/20 02:44 Blood - Venous Blood Culture - Final No growth after 5 days. 08/27/20 02:44 Blood - Venous Blood Culture - Final No growth after 5 days. 08/27/20 Unknown Urine Catheterized - Straight Catheter Urine Culture - Final Assessment and Plan (1) Acute respiratory failure: Status: Acute (2) Pneumonia: Status: Acute (3) COVID-19: Problem details: She has taken dexamethasone and Remdesivir Procalcitonin high Status: Acute (4) Asthma: Status: Acute Assessment and Plan: 80-year-old female with past medical history of asthma presents to the hospital with multiple complaints found to be COVID-19 positive, has RAMESH as well as UTI. 1.Covid 19 with likely viral PNA with actute hypoxic respiratory failure -Dexamethasone for total of 10 days -Doxy and Ceftin PO for PNA -Oxygen -No Remdesevir due to renal failure 2. RAMESH: Improving, check labs tomorrow 3.UTI--Ceftin 4. Asthma? exeberebation: continue albuterol , steriods 5. Anxiety --low dose Ativan
[2020-09-01] MEDS: Famotidine 20 MG TABLET 40 MG PO (20:37)
[2020-09-01] MEDS: traMADoL HCL 50 MG TABLET PO (22:47)
[2020-09-02] VITALS (9 sets, daily range): BP systolic 120–140; BP diastolic 64–91; PULSE 82–99; RESP 18–24; TEMP 36.3–37; O2SAT 93–98
[2020-09-02] MEDS: 0.9 % Sodium Chloride Flush 3 ML SYRINGE IVFLUSH ×3 (00:31→15:50)
[2020-09-02] MEDS: guaiFENesin 100 MG/5 ML LIQUID PO ×5 (00:42→20:38)
[2020-09-02] MEDS: Morphine Sulfate 4 MG/ML CARTRIDGE 3 MG IVPUSH (05:33)
[2020-09-02] MEDS: Enoxaparin Sodium 40 MG/0.4 ML SYRINGE SUBCUT ×2 (06:31→18:11)
[2020-09-02] MEDS: Fluticasone/Vilanterol 200/25 BLST.W.DEV 1 PUFF INHALE (07:51)
[2020-09-02] MEDS: polyethylene glycoL 3350 17 GM POWD.PACK PO (09:55)
[2020-09-02] MEDS: Zinc Sulfate 220 MG CAPSULE PO (09:55)
[2020-09-02 12:46] LABS: Anion Gap 17 (12-20); Blood Urea Nitrogen 52 mg/dL (9-16); Calcium 8.8 mg/dL (8.4-10.2); Carbon Dioxide 27 mmol/L (22-29); Chloride 99 mmol/L (96-108); Creatinine Clr Calc Pharmacy 23.5; Estimated Glomerular Filt Rate 24; Glucose Random 221 mg/dL (60-115); Potassium 5.2 mmol/l (3.3-5.1); Sodium 138 mmol/L (135-145)
--- NOTE | 2020-09-02 13:36 | MHC.CM.PN ---
Patient continues on 3 liters O2 via [place] and IV Dexamethasone for +COVID. Also on PO Ceftin and Doxycycline for UTI. Discharge plan is home no services, activity note is stating patient is a 2 person assist. Will request PT eval for safe disposition on discharge. CM will continue to follow patient for discharge needs.
--- NOTE | 2020-09-02 15:20 | MHC.CLN ---
RE: CONSULT RECOMMEND ENSURE BID TO INCREASE KCALS
[2020-09-02] MEDS: Acetaminophen 325 MG TABLET 650 MG PO (15:50)
--- NOTE | 2020-09-02 15:58 | HO.PM.IMPN ---
Subjective Subjective Date of Service: 09/03/20 Interval History: f/u for covid 19 with acute hypoxic respirator failure Review of Systems Patient says shortness of breath slowly improving, has some cough otherwise denies any chest pain or nausea vomiting or abdominal pain. Physical Exam Vital Signs: Vital Signs: Last Vital Signs Temp 98.1 F 09/02/20 15:22 Pulse 89 09/02/20 15:22 Resp 24 H 09/02/20 15:22 BP 140/91 H 09/02/20 15:22 Pulse Ox 93 09/02/20 15:22 Body Mass Index 33.0 Physical exam: Constitutional: Not in acute distress. Cvs: rrr, [id number] , no murmur res: clear to auscultation ,no rhonchii or wheezing abd: no rebound or guarding ,nt, bs present. ext pulses present , no cyanosis neuro: axo3 , nonfocal. Objective Data Current Medications Generic Name Dose Route Start Last Admin Trade Name Freq PRN Reason Stop Dose Admin Acetaminophen 650 mg 08/27/20 06:27 09/02/20 15:50 Acetaminophen 325 Mg Tablet PO 650 mg Q6H PRN Administration Pain, Mild (Pain Scale 1-3) Albuterol Sulfate 4 puff 08/27/20 07:16 09/01/20 08:08 Albuterol Sulfate 90 Mcg 8 Gm Inhaler INHALE 4 puff Q2H PRN Administration Shortness of Breath/Wheezing Cefuroxime Axetil 500 mg 08/31/20 21:00 09/02/20 09:55 Cefuroxime Axetil 500 Mg Tablet PO 500 mg BID FELICITY Administration Dexamethasone Sodium Phosphate 6 mg 08/29/20 21:00 09/02/20 09:54 Dexamethasone Sod Phosphate/Pf 10 Mg/Ml Vial IVPUSH 6 mg BID FELICITY Administration Docusate Sodium 100 mg 08/27/20 06:27 08/28/20 19:50 Docusate Sodium 100 Mg Capsule PO 100 mg DAILY PRN Administration Constipation Docusate Sodium 100 mg 08/28/20 21:00 09/01/20 20:39 Docusate Sodium 100 Mg Capsule PO Not Given BEDTIME FELICITY Doxycycline Hyclate 100 mg 08/31/20 21:00 09/02/20 09:55 Doxycycline Hyclate 100 Mg Tablet PO 100 mg BID FELICITY Administration Enoxaparin Sodium 40 mg 08/30/20 19:00 09/02/20 06:31 Enoxaparin Sodium 40 Mg/0.4 Ml Syringe SUBCUT 40 mg Q12H FELICITY Administration Famotidine 40 mg 08/29/20 21:00 09/01/20 20:37 Famotidine 20 Mg Tablet PO 40 mg BEDTIME FELICITY Administration Fluticasone/Vilanterol 1 puff 08/30/20 08:00 09/02/20 07:51 Fluticasone/Vilanterol 200/25 Blst.W.Dev INHALE 1 puff RDAILY FELICITY Administration Guaifenesin 5 ml 08/29/20 10:00 09/02/20 15:50 Guaifenesin 100 Mg/5 Ml Liquid PO 5 ml Q6H FELICITY Administration Ondansetron HCl 4 mg 08/27/20 06:27 09/01/20 09:52 Ondansetron Hcl 4 Mg/2 Ml Vial IVPUSH 4 mg Q8H PRN Administration Nausea and Vomiting Polyethylene Glycol 17 gm 08/28/20 12:15 09/02/20 09:55 Polyethylene Glycol 3350 17 Gm Powd.Pack PO 17 gm DAILY FELICITY Administration Sodium Chloride 3 ml 08/27/20 08:00 09/02/20 15:50 0.9 % Sodium Chloride Flush 3 Ml Syringe IVFLUSH 3 ml QSHIFT FELICITY Administration Tiotropium [place] 1 puff 08/30/20 08:00 09/02/20 07:51 Tiotropium [place] 18 Mcg Cap.W.Dev INHALE 1 puff RDAILY FELICITY Administration Zinc Sulfate 220 mg 08/30/20 09:00 09/02/20 09:55 Zinc Sulfate 220 Mg Capsule PO 220 mg DAILY FELICITY Administration Labs CBC & Chem 7: 08/28/20 05:22 09/03/20 05:15 Microbiology Microbiology Results: Microbiology 08/27/20 02:44 Blood - Venous Blood Culture - Final No growth after 5 days. 08/27/20 02:44 Blood - Venous Blood Culture - Final No growth after 5 days. 08/27/20 Unknown Urine Catheterized - Straight Catheter Urine Culture - Final Assessment and Plan (1) Acute respiratory failure: Status: Acute (2) COVID-19: Status: Acute (3) Acute kidney injury: Status: Acute (4) Pneumonia: Status: Acute (5) Asthma: Status: Acute Assessment and Plan: 80-year-old female with past medical history of asthma presents to the hospital with multiple complaints found to be COVID-19 positive, has RAMESH as well as UTI. 1.Covid 19 with likely viral PNA with actute hypoxic respiratory failure Dexamethasone for total of 10 days,Doxy and Ceftin PO for PNA, taper Oxygen No Remdesevir due to renal failure 2. RAMESH: seems creatinine bumping up, worsening nephro eval 3.UTI--Ceftin blood culture neg urine cultures -mixed 4. Asthma? exeberebation: continue albuterol , steriods 5. Anxiety --low dose Ativan
[2020-09-02] MEDS: Sodium Polystyrene Sulfon/Sorb 15 GM/60 ML ORAL.SUSP PO (18:11)
[2020-09-02] MEDS: Famotidine 20 MG TABLET 40 MG PO (20:37)
[2020-09-02] MEDS: Docusate Sodium 100 MG CAPSULE PO (20:38)
[2020-09-03] VITALS (7 sets, daily range): BP systolic 113–135; BP diastolic 66–82; PULSE 75–119; RESP 18–24; TEMP 36.6–37.1; O2SAT 96–98
[2020-09-03] MEDS: 0.9 % Sodium Chloride Flush 3 ML SYRINGE IVFLUSH ×3 (00:54→16:22)
[2020-09-03] MEDS: guaiFENesin 100 MG/5 ML LIQUID PO ×4 (04:07→20:33)
[2020-09-03] MEDS: Enoxaparin Sodium 40 MG/0.4 ML SYRINGE SUBCUT ×2 (06:41→20:32)
[2020-09-03 06:57] LABS: Anion Gap 19 (12-20); Blood Urea Nitrogen 55 mg/dL (9-16); Calcium 8.8 mg/dL (8.4-10.2); Carbon Dioxide 27 mmol/L (22-29); Chloride 98 mmol/L (96-108); Creatinine Clr Calc Pharmacy 25.5; Estimated Glomerular Filt Rate 26; Glucose Random 235 mg/dL (60-115); Potassium 5.1 mmol/l (3.3-5.1); Sodium 139 mmol/L (135-145)
[2020-09-03] MEDS: Fluticasone/Vilanterol 200/25 BLST.W.DEV 1 PUFF INHALE (07:38)
[2020-09-03] MEDS: Zinc Sulfate 220 MG CAPSULE PO (09:16)
[2020-09-03] MEDS: polyethylene glycoL 3350 17 GM POWD.PACK PO (09:17)
[2020-09-03] MEDS: Acetaminophen 325 MG TABLET 650 MG PO ×2 (14:17→20:34)
--- NOTE | 2020-09-03 15:28 | HO.PM.IMPN ---
Subjective Subjective Date of Service: 09/04/20 Interval History: f/u for covid 19 with acute hypoxic respirator failure Review of Systems Patient shortness of breath is improving, has cough, denies any chest pain or abdominal pain or nausea or vomiting or fevers. Physical Exam Vital Signs: Vital Signs: Last Vital Signs Temp 98.1 F 09/03/20 12:00 Pulse 76 09/03/20 12:00 Resp 24 H 09/03/20 12:00 BP 135/75 09/03/20 12:00 Pulse Ox 97 09/03/20 12:00 Body Mass Index 33.0 Physical exam: Physical exam: Constitutional: Not in acute distress. Cvs: rrr, [id number] , no murmur res:fair air entry ,no rhonchii or wheezing abd: no rebound or guarding ,nt, bs present. ext pulses present , no cyanosis neuro: axo3 , nonfocal. Objective Data Current Medications Generic Name Dose Route Start Last Admin Trade Name Freq PRN Reason Stop Dose Admin Acetaminophen 650 mg 08/27/20 06:27 09/03/20 14:17 Acetaminophen 325 Mg Tablet PO 650 mg Q6H PRN Administration Pain, Mild (Pain Scale 1-3) Albuterol Sulfate 4 puff 08/27/20 07:16 09/01/20 08:08 Albuterol Sulfate 90 Mcg 8 Gm Inhaler INHALE 4 puff Q2H PRN Administration Shortness of Breath/Wheezing Cefuroxime Axetil 500 mg 08/31/20 21:00 09/03/20 09:17 Cefuroxime Axetil 500 Mg Tablet PO 500 mg BID FELICITY Administration Dexamethasone Sodium Phosphate 6 mg 08/29/20 21:00 09/03/20 09:16 Dexamethasone Sod Phosphate/Pf 10 Mg/Ml Vial IVPUSH 6 mg BID FELICITY Administration Docusate Sodium 100 mg 08/27/20 06:27 08/28/20 19:50 Docusate Sodium 100 Mg Capsule PO 100 mg DAILY PRN Administration Constipation Docusate Sodium 100 mg 08/28/20 21:00 09/02/20 20:38 Docusate Sodium 100 Mg Capsule PO 100 mg BEDTIME FELICITY Administration Doxycycline Hyclate 100 mg 08/31/20 21:00 09/03/20 09:17 Doxycycline Hyclate 100 Mg Tablet PO 100 mg BID FELICITY Administration Enoxaparin Sodium 40 mg 08/30/20 19:00 09/03/20 06:41 Enoxaparin Sodium 40 Mg/0.4 Ml Syringe SUBCUT 40 mg Q12H FELICITY Administration Famotidine 40 mg 08/29/20 21:00 09/02/20 20:37 Famotidine 20 Mg Tablet PO 40 mg BEDTIME FELICITY Administration Fluticasone/Vilanterol 1 puff 08/30/20 08:00 09/03/20 07:38 Fluticasone/Vilanterol 200/25 Blst.W.Dev INHALE 1 puff RDAILY FELICITY Administration Guaifenesin 5 ml 08/29/20 10:00 09/03/20 09:16 Guaifenesin 100 Mg/5 Ml Liquid PO 5 ml Q6H FELICITY Administration Ondansetron HCl 4 mg 08/27/20 06:27 09/01/20 09:52 Ondansetron Hcl 4 Mg/2 Ml Vial IVPUSH 4 mg Q8H PRN Administration Nausea and Vomiting Polyethylene Glycol 17 gm 08/28/20 12:15 09/03/20 09:17 Polyethylene Glycol 3350 17 Gm Powd.Pack PO 17 gm DAILY FELICITY Administration Sodium Chloride 3 ml 08/27/20 08:00 09/03/20 09:17 0.9 % Sodium Chloride Flush 3 Ml Syringe IVFLUSH 3 ml QSHIFT FELICITY Administration Tiotropium [place] 1 puff 08/30/20 08:00 09/03/20 07:38 Tiotropium [place] 18 Mcg Cap.W.Dev INHALE 1 puff RDAILY FELICITY Administration Zinc Sulfate 220 mg 08/30/20 09:00 09/03/20 09:16 Zinc Sulfate 220 Mg Capsule PO 220 mg DAILY FELICITY Administration Labs CBC & Chem 7: 08/28/20 05:22 09/03/20 05:15 Microbiology Microbiology Results: Microbiology 08/27/20 02:44 Blood - Venous Blood Culture - Final No growth after 5 days. 08/27/20 02:44 Blood - Venous Blood Culture - Final No growth after 5 days. 08/27/20 Unknown Urine Catheterized - Straight Catheter Urine Culture - Final Assessment and Plan (1) COVID-19: Status: Acute (2) Pneumonia: Status: Acute (3) Acute respiratory failure: Status: Acute (4) Acute kidney injury: Status: Acute (5) Asthma: Status: Acute Assessment and Plan: 80-year-old female with past medical history of asthma presents to the hospital with multiple complaints found to be COVID-19 positive, has RAMESH as well as UTI. 1.Covid 19 with likely viral PNA with actute hypoxic respiratory failure Dexamethasone for total of 10 days,Doxy and Ceftin PO for PNA, taper Oxygen No Remdesevir due to renal failure oob , chest physio , incentive hermann 2. RAMESH: seems creatinine trending down, worsening nephro veal noted 3.UTI--Ceftin blood culture neg urine cultures -mixed 4. Asthma? exeberebation: continue albuterol , steriods 5. Anxiety --low dose Ativan
--- NOTE | 2020-09-03 19:36 | P.CONNP_ITS ---
History of Present Illness Reason for Consult Consult date: 09/03/20 Chief Complaint Chief complaint: UTI, RAMESH, PNA History of Present Illness Narrative: 80-year-old female with past medical history of seizures, asthma, arthritis who presents to the hospital with complaints of 4 day history of weakness, coughing, shortness of breath, loss of appetite, nausea and RAMESH COVID posiitive with resp failure. RAMESH gradulaimproved over past several days and SCr has incr zoran past 24 hrs. Unclear if she has underlying ckd as last SCr dates back to 2014 when it was normal. Past medical history: Seizures, asthma, arthritis Review of Systems Review of Systems Patient shortness of breath is improving, has cough, denies any chest pain or abdominal pain or nausea or vomiting or fevers. Yes all other systems are reviewed and are negative Constitutional: Reports as per HPI, Reports no additional constitutional complaints, Reports body ache(s) and Reports headache(s) Eyes: Reports as per HPI and Reports no additional eye complaints Reports system reviewed and no additional complaints, except as documented, Reports as per HPI, Reports headache(s), Denies lip swelling and Denies tongue swelling Cardiovascular: Reports as per HPI, Reports no additional cardiovascular complaints, Denies chest pain and Reports dyspnea Respiratory: Reports as per HPI, Reports no additional respiratory complaints, Reports chest congestion, Reports cough, Reports dyspnea and Reports wheezing Gastrointestinal: Reports as per HPI, Reports no additional gastrointestinal complaints and Denies abdominal pain Musculoskeletal: Denies no additional musculoskeletal complaints, Reports as per HPI and Reports back pain Reports system reviewed and no additional complaints, except as documented, Reports as per HPI and Reports headache(s) Psychiatric: Denies no additional psychiatric complaints and Reports as per HPI Hematologic/Lymphatic: Denies easy bleeding and Denies lymphadenopathy Allergic/Immunologic: Denies lip swelling, Denies tongue swelling and Reports wheezing PMFSH Past Medical History Medical History (Updated 09/02/20 @ 16:07 by Muriel Lang MD) Arthritis Asthma Seizures Social History Social History Household Members: None Housing: Apartment Do you presently have visiting nurse or other home services: No Smoking Status: Current some day smoker Tobacco Type: Cigarette Cigarettes Per Day: 4 Patient Interested in Nicotine Replacement: No Patient Given Instructions on How to Stop Smoking: Yes Date Education Initiated: 08/27/20 Second Hand Smoke Exposure: No Use of substances other than those prescribed or required for medical reasons: No Currently Displaying Signs/Symptoms of Drug Intoxication Withdrawal: No Have you been hit, kicked, punched, or otherwise hurt by someone within the past year? If so, by whom?: No Do you feel safe in your current relationship?: No Current Relationship Is there a partner from a previous relationship who is making you feel unsafe now?: No Are you made to feel afraid or neglected: No Advance Directives: No Advance Directives Information Provided: Yes Do you have thoughts of harming others: None Do you have a plan to hurt others: No Plan service: No Current occupational status: disabled Meds Allergies Allergy/AdvReac Type Severity Reaction Status Date / Time aspirin [ASPIRIN] Allergy Unknown VOMITING Verified 08/26/20 21:03 Physical Exam Vital Signs: Last Vital Signs Temp 97.8 F 09/03/20 19:18 Pulse 75 09/03/20 19:18 Resp 20 09/03/20 19:18 BP 125/81 09/03/20 19:18 Pulse Ox 96 09/03/20 19:18 Body Mass Index 33.0 Const General: cooperative, healthy appearing, comfortable, no acute distress, well developed, alert and awake Orientation/consciousness: patient oriented x3 HENMT Head: Yes normal to inspection, Yes No palpable skull fracture present, Yes normocephalic, Yes atraumatic, No abrasion, No Thomson's sign, No contusion, No cranial bruits, No hematoma, No laceration, No occipital foramen tenderness, No palpable skull fracture, No raccoon eyes, No scalp tenderness, No Temporal artery tenderness present and No periorbital ecchymosis General nose exam: Abnormal external nose present and Nasal discharge present Mouth: Normal oral and palatal mucosa present Eyes General: appearance normal, both eyes and all related structures Pupils: Equal, round and reactive pupils present Neck Neck: Yes normal visual inspection, Yes full ROM, Yes no lymphadenopathy, Yes no meningeal signs, Yes trachea midline, Yes supple and Yes tender (Positive for cervical spine tenderness) Chest Chest palpation & inspection: normal inspection of the chest and normal palpation of entire chest wall Resp Effort & Inspection: normal respiratory effort and able to speak in complete sentences Auscultation: wheezes expiratory wheezes and throughout and diminished lung sounds Cardio Jugular venous distension: no JVD Rate: regular rate Rhythm: regular rhythm Heart sounds: S1 normal heart sound present and S2 normal heart sound present GI Inspection: Yes normal to inspection Palpation (GI): Soft to palpation, not firm, nontender, no guarding and not rig id Auscultation: normal bowel sounds General: Yes no CVA tenderness Back/Spine/Pelvis Back: no CVA tenderness and back tenderness (Positive for thoracic and lumbar spine tenderness on palpation) Skin Other: Patient appears dehydrated General skin exam: no rashes or lesions noted and elasticity normal Neuro General: patient oriented x3 and no meningeal signs Cranial nerves: Yes Equal, round and reactive pupils present Cognition (Neuro): normal cognition Extrem General: Yes normal to inspection, Yes full ROM and Yes no pedal edema Psych Appearance: grossly normal, well kempt and not disheveled Results Lab Results Result Diagrams: 08/28/20 05:22 09/03/20 05:15 Lab results: Chemistry 09/02/20 09/03/20 11:58 05:15 Sodium 138 139 Potassium 5.2 H 5.1 Carbon Dioxide 27 27 BUN 52 H 55 H Creatinine 2.00 H 1.84 H Calcium 8.8 D 8.8 Assessment and Plan (1) COVID-19: Status: Acute (2) Pneumonia: Qualifiers: Pneumonia type: due to unspecified organism Laterality: left Lung location: upper lobe of lung Qualified Code(s): J18.9 - Pneumonia, unspecified organism Status: Acute (3) Acute respiratory failure: Status: Acute (4) Acute kidney injury: Status: Acute (5) Asthma: Status: Acute 80-year-old female with past medical history of asthma presents to the hospital with multiple complaints found to be COVID-19 positive, has RAMESH peak SCr 3.29 on adm grad improved down to 1.5 and incr over past 48 hrs to 2.0 1. RAMESH: initiail RAMESH grad improved suggests a reversible RAMESH ..perhaps pre-renal vs COVID asso cytokine ATNand then improved only now to agin estrella worsning againques underlying CKD and perhaps her bslSCr is 1.5-2.0 alterntively may have a new renal insult such as pre-renal obs AGN or AIN given the SCr has decr again its likely this is renal hypoperfsuion 2.COVID 3. Ques underlyig CKD REC: cont to track renl func; check urine studies, IVF if SCr incr again will follow closely wth team
[2020-09-03] MEDS: Albuterol Sulfate 90 MCG 8 GM INHALER 4 PUFF INHALE (19:55)
[2020-09-03] MEDS: Famotidine 20 MG TABLET 40 MG PO (20:35)
[2020-09-03] MEDS: Docusate Sodium 100 MG CAPSULE PO (20:35)
[2020-09-04] VITALS (8 sets, daily range): BP systolic 118–130; BP diastolic 62–74; PULSE 70–102; RESP 18–20; TEMP 36.2–36.9; O2SAT 94–98
--- NOTE | 2020-09-04 | US_ITS ---
EXAMINATION: US RETROPERITONEAL LIMITED (RENAL ONLY) CLINICAL INFORMATION: RAMESH. COVID positive. COMPARISON: CT abdomen and pelvis noncontrast 08/26/2020 TECHNIQUE: Real-time imaging of the kidneys. Limited exam due to patient sitting upright and portable exam. Bladder not imaged. FINDINGS: RIGHT KIDNEY: 6.9 x 3.3 x 3.3 cm (SAG x AP x TRV). Renal length likely foreshortened due to challenging exam. Right kidney measures 8.[address] 08/26/2020. There is normal renal parenchymal thickness and echogenicity. No visible calculi or focal parenchymal lesions. No hydronephrosis. LEFT KIDNEY: 8.7 x 4.7 x 4.1 cm (SAG x AP x TRV). The kidney is normal in size, contour, and echogenicity. Renal cortical thickness is normal. No calculi or focal parenchymal lesions. No hydronephrosis. US/US renal BI IMPRESSION: 1. No hydronephrosis or caliectasis. No visible calculi. 2. Normal renal parenchymal thickness and echogenicity. 3. Patient study limitations.
[2020-09-04] MEDS: 0.9 % Sodium Chloride Flush 3 ML SYRINGE IVFLUSH ×3 (00:07→15:28)
[2020-09-04] MEDS: guaiFENesin 100 MG/5 ML LIQUID PO (03:27)
[2020-09-04 05:27] LABS: Glucose Urine UA NEG (NEG); Leukocyte Esterase Urine TRACE (NEG); Nitrite Urine POS (NEG); Urine Blood NEG (NEG); Urine Ketones NEG (NEG); Urine Protein NEG (NEG-TRACE)
[2020-09-04 05:41] LABS: Appearance Urine CLOUDY; Color Urine YELLOW
[2020-09-04 06:04] LABS: Bacteria Urine 4+ /LPF; Mucus Urine 1+ /LPF; Squamous Epithelial Cell Urine 1+ /LPF
[2020-09-04] MEDS: Enoxaparin Sodium 40 MG/0.4 ML SYRINGE SUBCUT ×2 (06:11→19:45)
[2020-09-04] MEDS: Fluticasone/Vilanterol 200/25 BLST.W.DEV 1 PUFF INHALE (07:46)
[2020-09-04 08:07] LABS: EOS Counted 0 CELLS; EOS QC POS YES; EOS Stain Quality OK YES; WBC, Counted 100 CELLS
[2020-09-04] MEDS: polyethylene glycoL 3350 17 GM POWD.PACK PO (08:41)
[2020-09-04] MEDS: Zinc Sulfate 220 MG CAPSULE PO (08:41)
--- NOTE | 2020-09-04 14:03 | P.PNNP_ITS ---
Subjective Subjective Date of Service: 09/04/20 Interval history: Seen and exmaimed. Events noted Physical Exam Vital Signs: Vital Signs: Last Vital Signs Temp 97.1 F 09/04/20 11:12 Pulse 102 H 09/04/20 13:51 Resp 20 09/04/20 11:12 BP 128/74 09/04/20 13:51 Pulse Ox 95 09/04/20 13:51 Body Mass Index 33.0 Const: General: cooperative, healthy appearing, comfortable, no acute distress, well developed, alert and awake Orientation/consciousness: patient oriented x3 HENMT: Head: Yes normal to inspection, Yes No palpable skull fracture present, Yes normocephalic, Yes atraumatic, No abrasion, No Thomson's sign, No contusion, No cranial bruits, No hematoma, No laceration, No occipital foramen tenderness, No palpable skull fracture, No raccoon eyes, No scalp tenderness, No Temporal artery tenderness present and No periorbital ecchymosis General nose exam: Abnormal external nose present and Nasal discharge present Mouth: Normal oral and palatal mucosa present Eyes: General: appearance normal, both eyes and all related structures Pupils: Equal, round and reactive pupils present Neck: Neck: Yes normal visual inspection, Yes full ROM, Yes no lymph adenopathy, Yes no meningeal signs, Yes trachea midline, Yes supple and Yes tender (Positive for cervical spine tenderness) Chest: Chest palpation & inspection: normal inspection of the chest and normal palpation of entire chest wall Resp: Effort & Inspection: normal respiratory effort and able to speak in complete sentences Auscultation: wheezes expiratory wheezes and throughout and diminished lung sounds Cardio: Jugular venous distension: no JVD Rate: regular rate Rhythm: regular rhythm Heart sounds: S1 normal heart sound present and S2 normal heart sound present GI: Inspection: Yes normal to inspection Palpation (GI): Soft to palpation, not firm, nontender, no guarding and not rigid Auscultation: normal bowel sounds : General: Yes no CVA tenderness Back/Spine/Pelvis: Back: no CVA tenderness and back tenderness (Positive for thoracic and lumbar spine tenderness on palpation) Skin: Other: Patient appears dehydrated General skin exam: no rashes or les ions noted and elasticity normal Neuro: General: patient oriented x3 and no meningeal signs Cranial nerves: Yes Equal, round and reactive pupils present Cognition (Neuro): normal cognition Extrem: General: Yes normal to inspection, Yes full ROM and Yes no pedal edema Psych: Appearance: grossly normal, well kempt and not disheveled Objective Data Labs CBC & Chem 7: 08/28/20 05:22 09/03/20 05:15 Labs: Laboratory Results - last 24 hr 09/04/20 09/04/20 09/04/20 05:05 05:05 05:05 Urine Color YELLOW Urine Appearance CLOUDY Urine pH 6.0 Ur Specific [place] 1.020 Urine Protein NEG Urine Glucose (UA) NEG Urine Ketones NEG Urine Blood NEG Urine Nitrite POS H Ur Leukocyte Esterase TRACE H Urine RBC 1-4 Urine WBC 10-14 H Ur Squamous Epith Cells 1+ Urine Bacteria 4+ Urine Mucus 1+ Urine Yeast 2+ Urine Eosinophils % 0.0 Ur Random Sodium 87.0 Urine Creatinine 47.50 Microbiology Microbiology Results: Microbiology 08/27/20 02:44 Blood - Venous Blood Culture - Final No growth after 5 days. 08/27/20 02:44 Blood - Venous Blood Culture - Final No growth after 5 days. 08/27/20 Unknown Urine Catheterized - Straight Catheter Urine Culture - Final Assessment & Plan Assessment and plan (1) COVID-19: Status: Acute (2) Pneumonia: Status: Acute (3) Acute respiratory failure: Status: Acute (4) Acute kidney injury: Status: Acute (5) Asthma: Status: Acute Assessment and Plan: 80-year-old female with past medical history of asthma presents to the hospital with multiple complaints found to be COVID-19 positive, has RAMESH peak SCr 3.29 on adm grad improved down to 1.5 and incr over past 48 hrs to 2.0 1. RAMESH: initiail RAMESH grad improved suggests a reversible RAMESH ..perhaps pre-renal vs COVID asso cytokine ATNand then improved only now to agin sl worsning againques underlying CKD and perhaps her bsl SCr is 1.5-2.0 alterntively may have a new renal insult such as pre-renal: FENa > 1% goes against this obs: scan done but repot pending..no hydro seen by me AGN or AIN 2.COVID 3. Ques underlyig CKD: based on U/S and RK atrophic would support CKD REC: cont to track renal func; avoid NTOxins will follow closely with team Time Spent With Patient Time: Total time spent is greater than 50% in coordination of care (as documented) at patient's floor/unit and/or counseling patient:
--- NOTE | 2020-09-04 14:22 | MHC.CLN ---
F/U PO INTAKE 25-50% DIET RX: LOW K+-APPROPRIATE ENSURE BID IN PLACE TO INCREASE KCALS MONITOR PO INTAKE CLOSELY
--- NOTE | 2020-09-04 14:42 | MHC.CM.PN ---
Patient's contact is son Christopher Costa [phone], spoke with Christopher re: PT is recommending STR, instructed we are limited on STR r/t COVID+. Christopher's choices are [facility] and [facility]. Referrals made via allscripts. Patient will need BLS transport. CM will continue to follow patient for discharge needs.
--- NOTE | 2020-09-04 18:48 | HO.PM.IMPN ---
Subjective Subjective Date of Service: 09/05/20 Interval History: f/u for covid 19 with acute hypoxic respirator failure Review of Systems Patient shortness of breath is improving denies any chest pain or abdominal pain or fever or nausea a vomiting Physical Exam Vital Signs: Vital Signs: Last Vital Signs Temp 98.1 F 09/04/20 15:36 Pulse 70 09/04/20 15:36 Resp 18 09/04/20 15:36 BP 119/71 09/04/20 15:36 Pulse Ox 98 09/04/20 15:36 Body Mass Index 33.0 Physical exam: Cvs: [id number], [id number] , no murmur res: Fair air entry ,no rhonchii or wheezing abd: no rebound or guarding ,nt, bs present. ext pulses present , no cyanosis neuro: axo3 , nonfocal. Objective Data Current Medications Generic Name Dose Route Start Last Admin Trade Name Freq PRN Reason Stop Dose Admin Acetaminophen 650 mg 08/27/20 06:27 09/03/20 20:34 Acetaminophen 325 Mg Tablet PO 650 mg Q6H PRN Administration Pain, Mild (Pain Scale 1-3) Albuterol Sulfate 4 puff 08/27/20 07:16 09/03/20 19:55 Albuterol Sulfate 90 Mcg 8 Gm Inhaler INHALE 4 puff Q2H PRN Administration Shortness of Breath/Wheezing Cefuroxime Axetil 500 mg 08/31/20 21:00 09/04/20 08:41 Cefuroxime Axetil 500 Mg Tablet PO 500 mg BID FELICITY Administration Dexamethasone Sodium Phosphate 6 mg 08/29/20 21:00 09/04/20 08:41 Dexamethasone Sod Phosphate/Pf 10 Mg/Ml Vial IVPUSH 6 mg BID FELICITY Administration Docusate Sodium 100 mg 08/27/20 06:27 08/28/20 19:50 Docusate Sodium 100 Mg Capsule PO 100 mg DAILY PRN Administration Constipation Docusate Sodium 100 mg 08/28/20 21:00 09/03/20 20:35 Docusate Sodium 100 Mg Capsule PO 100 mg BEDTIME FELICITY Administration Doxycycline Hyclate 100 mg 08/31/20 21:00 09/04/20 08:41 Doxycycline Hyclate 100 Mg Tablet PO 100 mg BID FELICITY Administration Enoxaparin Sodium 40 mg 08/30/20 19:00 09/04/20 06:11 Enoxaparin Sodium 40 Mg/0.4 Ml Syringe SUBCUT 40 mg Q12H FELICITY Administration Famotidine 40 mg 08/29/20 21:00 09/03/20 20:35 Famotidine 20 Mg Tablet PO 40 mg BEDTIME FELICITY Administration Fluticasone/Vilanterol 1 puff 08/30/20 08:00 09/04/20 07:46 Fluticasone/Vilanterol 200/25 Blst.W.Dev INHALE 1 puff RDAILY FELICITY Administration Guaifenesin 5 ml 08/29/20 10:00 09/04/20 15:28 Guaifenesin 100 Mg/5 Ml Liquid PO Not Given Q6H FELICITY Ondansetron HCl 4 mg 08/27/20 06:27 09/01/20 09:52 Ondansetron Hcl 4 Mg/2 Ml Vial IVPUSH 4 mg Q8H PRN Administration Nausea and Vomiting Polyethylene Glycol 17 gm 08/28/20 12:15 09/04/20 08:41 Polyethylene Glycol 3350 17 Gm Powd.Pack PO 17 gm DAILY FELICITY Administration Sodium Chloride 3 ml 08/27/20 08:00 09/04/20 15:28 0.9 % Sodium Chloride Flush 3 Ml Syringe IVFLUSH 3 ml QSHIFT FELICITY Administration Tiotropium [employer] [place] 1 puff 08/30/20 08:00 09/04/20 07:[address] [place] 18 Mcg Cap.W.Dev INHALE 1 puff RDAILY FELICITY Administration Zinc Sulfate 220 mg 08/30/20 09:00 09/04/20 08:41 Zinc Sulfate 220 Mg Capsule PO 220 mg DAILY FELICITY Administration Labs CBC & Chem 7: 08/28/20 05:22 09/03/20 05:15 Microbiology Microbiology Results: Microbiology 08/27/20 02:44 Blood - Venous Blood Culture - Final No growth after 5 days. 08/27/20 02:44 Blood - Venous Blood Culture - Final No growth after 5 days. 08/27/20 Unknown Urine Catheterized - Straight Catheter Urine Culture - Final Assessment and Plan (1) Acute respiratory failure: Status: Acute (2) COVID-19: Status: Acute (3) Pneumonia: Status: Acute (4) Acute kidney injury: Status: Acute (5) Asthma: Status: Acute Assessment and Plan: 80-year-old female with past medical history of asthma presents to the hospital with multiple complaints found to be COVID-19 positive, has RAMESH as well as UTI. 1.Covid 19 with likely viral PNA with actute hypoxic respiratory failure Dexamethasone for total of 10 days,Doxy and Ceftin PO for PNA, taper Oxygen No Remdesevir due to renal failure oob , chest physio , incentive hermann 2. RAMESH: seems creatinine trending down, worsening nephro veal noted 3.UTI--Ceftin blood culture neg urine cultures -mixed 4. Asthma? exeberebation: continue albuterol , steriods 5. Anxiety --low dose Ativan
[2020-09-04] MEDS: Famotidine 20 MG TABLET 40 MG PO (21:19)
[2020-09-05] VITALS: BP 133/70; PULSE 87; RESP 20; TEMP 36.7; O2SAT 98
[2020-09-05] MEDS: 0.9 % Sodium Chloride Flush 3 ML SYRINGE IVFLUSH ×2 (00:27→09:28)
[2020-09-05 04:00] VITALS: BP 114/69; PULSE 66; RESP 20; TEMP 36.7; O2SAT 98
[2020-09-05 07:32] VITALS: BP 129/62; PULSE 63; RESP 16; TEMP 36.6; O2SAT 99
--- NOTE | 2020-09-05 08:19 | MHC.CM.PN ---
CM called [facility] to check on PCP, patient has never been there. Instructed patient needs to pick an MD, make an appt within a week of discharge to follow up after rehab stay. Patient verbalizes understanding.
[2020-09-05] MEDS: Fluticasone/Vilanterol 200/25 BLST.W.DEV 1 PUFF INHALE (08:24)
[2020-09-05] MEDS: Zinc Sulfate 220 MG CAPSULE PO (09:27)
[2020-09-05 09:36] VITALS: BP 129/62; PULSE 63; O2SAT 97; O2SAT 99
--- NOTE | 2020-09-05 11:45 | MHC.CM.PN ---
Patient will be discharged today to [facility] via BLS transport at 2pm. Patient, son and nurse made aware. 2nd IMM addressed.
[2020-09-05] MEDS: Acetaminophen 325 MG TABLET 650 MG PO (11:51)
[2020-09-05 12:00] VITALS: BP 132/66; PULSE 61; RESP 18; TEMP 36.7; O2SAT 99
--- NOTE | 2020-09-05 13:08 | PM.DS ---
DS: Providers Provider Date of Service: 09/05/20 Date of admission: 08/27/20 06:27 Primary care physician: Unknown Physician Consults: 08/27/20 07:48 Consult to Infectious Diseases Routine Consulting Provider: Sheila Elizondo Reason for consultation: COVID infection , CAP Has provider been notified: No 08/29/20 09:26 Consult to Pulmonology Routine Consulting Provider: Edwin Burciaga Reason for consultation: pneumonia /acute respiratory failure Has provider been notified: No 09/02/20 18:43 Consult to Nephrology Routine Consulting Provider: Mal Iniguez Reason for consultation: maira ? ckd Has provider been notified: No DS: Diagnosis Discharge Diagnosis (1) Acute respiratory failure: Status: Acute (2) COVID-19: Status: Acute (3) Pneumonia: Status: Acute (4) Acute kidney injury: Status: Acute (5) Asthma: Status: Acute DS: Summary Hospital Course Hospital Course: 80-year-old female with past medical history of seizures, asthma, arthritis who presents to the hospital with complaints of 4 day history of weakness, coughing, shortness of breath, loss of appetite, nausea. She also had 1 episode of falling while getting out of her bed today due to her severe weakness,patient is also complaining of on of headache. Otherwise has no change in vision, no chest pain, no diarrhea and no constipation. Patient reports that she has been having low appetite and has not been eating or drinking much. She is also having wheezing. Her son Was recently diagnosed with COVID-19 and he is currently admitted to the hospital. She does complain of urinary urgency, frequency. No lower extremity edema. On arrival to the ED hemodynamically stable but then developed a temperature of 101.2?, respiratory rate of 25, blood pressure of 179/82. Satting 96% on room air When she initially presented to the hospital. Labs are significant for WBC count of 6.1, hemoglobin of 11.7, hematocrit 35.9, BUN of 45, creatinine of 3.24, (baseline unknown- no previous lab on EMR), AST of 43, LDH of 514, high sensitivity troponin of 57.4 dropped and 42.8. UA is positive for nitrites, leukocyte Estrace, WBC. COVID-[address] showing when area of infiltrate in the left upper lobe Past medical history: Seizures, asthma, arthritis. Hospital Course problem horvath section: Patient issue came with acute hypoxemic respiratory failure secondary to COVID pneumonia-patient was started on steroids, antibiotics and oxygen support: Seen by Pulmonary and Infectious Disease: Also added Breo and albuterol: With above management patient is breathing seems to be improved. Please complete the antibiotic and steroid course out patiently. Also patient oxygen demand improved significantly currently on 2 L oxygen and saturating in above 90%. Consider repeating chest imaging study in 3-4 weeks to see resolution of pneumonia. In addition patient also has UTI: Please complete the antibiotics as above. Anemia: H&H is stable around 10, monitor CBC in rehab and further management as per rehab. Probable CKD: No baseline available, renal sono seems fine seen by Nephrology: Patient is maintaining creatinine around 1.7-1.8 range: Probably plateaued. Monitor renal function and electrolytes out patiently in rehab and further management as per rehab, consider outpatient nephrology follow-up. Patient was seen by PT-recommended rehab. Above management discussed with the patient in detail length with hydroponics worker - she understand and in agreement with the above plan, time spent 50 minutes and 50% time spent on counseling. Significant findings: As above. Procedures performed: None. Treatment and response: As above. Complications: None. Time Spent with Patient Time attestation: Total time spent providing and/or coordinating discharge services: Discharge coordination time: Greater than 30 minutes Physical Exam Vital Signs: Vital Signs: Last Vital Signs Temp 98.1 F 09/05/20 12:00 Pulse 61 09/05/20 12:00 Resp 18 09/05/20 12:00 BP 132/66 09/05/20 12:00 Pulse Ox 99 09/05/20 12:00 Body Mass Index 33.0 Physical exam: Constitutional: Not in acute distress sitting and eating breakfast. HEENT: Eyes: Anicteric, no discharge Neck: Supple. Cvs: rrr, [id number] , no murmur res: Fair air entry ,no rhonchii or wheezing abd: no rebound or guarding ,nt, bs present. ext pulses present , no cyanosis neuro: axo3 , nonfocal. DS: Data Data Completed and Pending Labs on day of discharge: Laboratory Tests 08/26/20 08/26/20 08/26/20 19:57 19:57 19:57 WBC 6.1 RBC 3.78 L Hgb 11.7 L Hct 35.9 L MCV 95.0 MCH 31.0 MCHC 32.6 RDW 14.5 Plt Count 100 L MPV 12.5 H Immature Gran % (Auto) 0.3 Neut % (Auto) 67.5 Lymph % (Auto) 19.3 L [place] % (Auto) 12.7 H Eos % (Auto) 0.0 Baso % (Auto) 0.2 Lymph # (Auto) 1.2 [place] # (Auto) 0.8 Eos # (Auto) 0.0 Baso # (Auto) 0.0 Abs Immat Gran (auto) 0.02 Absolute Neuts (auto) 4.1 Absolute Nucleated RBC 0.000 Nucleated RBC % (auto) 0.0 PT 12.7 INR 1.1 APTT 30.8 D-Dimer ABG pH ABG pCO2 ABG pO2 ABG HCO3 ABG O2 Saturation ABG Base Excess Oxygen Given Sodium 142 Potassium 4.3 Chloride 102 Carbon Dioxide 26 Anion Gap 18 BUN 47 H Creatinine 3.24 H Estim Creat Clear Calc 14.5 Estimated GFR 14 Random Glucose 105 Lactic Acid Calcium 8.3 L Ferritin 438 H Total Bilirubin 0.2 AST 47 H ALT 15 Alkaline Phosphatase 41 Lactate Dehydrogenase 514 H Troponin I High Sens C-Reactive Protein B-Natriuretic Peptide Total Protein 7.3 Albumin 4.1 Procalcitonin Urine Color Urine Appearance Urine pH Ur Specific [place] Urine Protein Urine Glucose (UA) Urine Ketones Urine Blood Urine Nitrite Ur Leukocyte Esterase Urine RBC Urine WBC Ur Squamous Epith Cells Urine Bacteria Other Casts Urine Mucus Urine Yeast Urine Eosinophils % Ur Random Sodium Urine Creatinine Coronavirus (PCR) Influenza Type A (PCR) Influenza Type B (PCR) RSV RNA Qual (PCR) 08/26/20 08/26/20 08/26/20 19:57 19:57 19:57 WBC RBC Hgb Hct MCV MCH MCHC RDW Plt Count MPV Immature Gran % (Auto) Neut % (Auto) Lymph % (Auto) [place] % (Auto) Eos % (Auto) Baso % (Auto) Lymph # (Auto) [place] # (Auto) Eos # (Auto) Baso # (Auto) Abs Immat Gran (auto) Absolute Neuts (auto) Absolute Nucleated RBC Nucleated RBC % (auto) PT INR APTT D-Dimer ABG pH ABG pCO2 ABG pO2 ABG HCO3 ABG O2 Saturation ABG Base Excess Oxygen Given Sodium Potassium Chloride Carbon Dioxide Anion Gap BUN Creatinine Estim Creat Clear Calc Estimated GFR Random Glucose Lactic Acid Calcium Ferritin Total Bilirubin AST ALT Alkaline Phosphatase Lactate Dehydrogenase Troponin I High Sens 57.4 H C-Reactive Protein B-Natriuretic Peptide 41 Total Protein Albumin Procalcitonin 1.09 Urine Color Urine Appearance Urine pH Ur Specific [place] Urine Protein Urine Glucose (UA) Urine Ketones Urine Blood Urine Nitrite Ur Leukocyte Esterase Urine RBC Urine WBC Ur Squamous Epith Cells Urine Bacteria Other Casts Urine Mucus Urine Yeast Urine Eosinophils % Ur Random Sodium Urine Creatinine Coronavirus (PCR) POSITIVE A Influenza Type A (PCR) NEGATIVE Influenza Type B (PCR) NEGATIVE RSV RNA Qual (PCR) NEGATIVE 08/26/20 08/26/20 08/27/20 23:31 23:31 00:52 WBC RBC Hgb Hct MCV MCH MCHC RDW Plt Count MPV Immature Gran % (Auto) Neut % (Auto) Lymph % (Auto) [place] % (Auto) Eos % (Auto) Baso % (Auto) Lymph # (Auto) [place] # (Auto) Eos # (Auto) Baso # (Auto) Abs Immat Gran (auto) Absolute Neuts (auto) Absolute Nucleated RBC Nucleated RBC % (auto) PT INR APTT D-Dimer ABG pH ABG pCO2 ABG pO2 ABG HCO3 ABG O2 Saturation ABG Base Excess Oxygen Given Sodium 142 Potassium 4.2 Chloride 107 Carbon Dioxide 21 L Anion Gap 18 BUN 45 H Creatinine 2.93 H Estim Creat Clear Calc 16.0 Estimated GFR 15 Random Glucose 96 Lactic Acid Calcium 8.1 L Ferritin Total Bilirubin 0.3 AST 43 H ALT 15 Alkaline Phosphatase 39 Lactate Dehydrogenase Troponin I High Sens 42.8 H C-Reactive Protein B-Natriuretic Peptide Total Protein 6.6 Albumin 3.7 Procalcitonin Urine Color YELLOW Urine Appearance CLOUDY Urine pH 5.5 Ur Specific [place] 1.015 Urine Protein TRACE Urine Glucose (UA) NEG Urine Ketones NEG Urine Blood 2+ H Urine Nitrite POS H Ur Leukocyte Esterase 1+ H Urine RBC 1-4 Urine WBC 30-49 H Ur Squamous Epith Cells 2+ Urine Bacteria 4+ Other Casts Urine Mucus Urine Yeast Urine Eosinophils % Ur Random Sodium Urine Creatinine Coronavirus (PCR) Influenza Type A (PCR) Influenza Type B (PCR) RSV RNA Qual (PCR) 08/27/20 08/28/20 08/28/20 02:43 05:22 05:22 WBC 6.3 RBC 3.38 L Hgb 10.3 L Hct 32.1 L MCV 95.0 MCH 30.5 MCHC 32.1 RDW 14.2 Plt Count 124 L MPV 13.2 H Immature Gran % (Auto) 0.6 H Neut % (Auto) 77.1 H Lymph % (Auto) 15.2 L [place] % (Auto) 7.1 Eos % (Auto) 0.0 Baso % (Auto) 0.0 Lymph # (Auto) 1.0 L [place] # (Auto) 0.5 Eos # (Auto) 0.0 Baso # (Auto) 0.0 Abs Immat Gran (auto) 0.04 H Absolute Neuts (auto) 4.9 Absolute Nucleated RBC 0.000 Nucleated RBC % (auto) 0.0 PT INR APTT D-Dimer ABG pH ABG pCO2 ABG pO2 ABG HCO3 ABG O2 Saturation ABG Base Excess Oxygen Given Sodium Cancelled Potassium Cancelled Chloride Cancelled Carbon Dioxide Cancelled Anion Gap Cancelled BUN Cancelled Creatinine Cancelled Estim Creat Clear Calc Cancelled Estimated GFR Cancelled Random Glucose Cancelled Lactic Acid 1.2 Calcium Cancelled Ferritin Total Bilirubin AST ALT Alkaline Phosphatase Lactate Dehydrogenase Troponin I High Sens C-Reactive Protein B-Natriuretic Peptide Total Protein Albumin Procalcitonin Urine Color Urine Appearance Urine pH Ur Specific [place] Urine Protein Urine Glucose (UA) Urine Ketones Urine Blood Urine Nitrite Ur Leukocyte Esterase Urine RBC Urine WBC Ur Squamous Epith Cells Urine Bacteria Other Casts Urine Mucus Urine Yeast Urine Eosinophils % Ur Random Sodium Urine Creatinine Coronavirus (PCR) Influenza Type A (PCR) Influenza Type B (PCR) RSV RNA Qual (PCR) 08/28/20 08/29/20 08/29/20 05:22 15:35 15:35 WBC RBC Hgb Hct MCV MCH MCHC RDW Plt Count MPV Immature Gran % (Auto) Neut % (Auto) Lymph % (Auto) [place] % (Auto) Eos % (Auto) Baso % (Auto) Lymph # (Auto) [place] # (Auto) Eos # (Auto) Baso # (Auto) Abs Immat Gran (auto) Absolute Neuts (auto) Absolute Nucleated RBC Nucleated RBC % (auto) PT INR APTT D-Dimer ABG pH ABG pCO2 ABG pO2 ABG HCO3 ABG O2 Saturation ABG Base Excess Oxygen Given Sodium 137 136 Potassium 5.0 4.8 Chloride 104 99 Carbon Dioxide 25 29 Anion Gap 13 13 BUN 44 H 38 H Creatinine 1.77 H 1.52 H Estim Creat Clear Calc 26.5 30.9 Estimated GFR 28 33 Random Glucose 159 H D 162 H Lactic Acid Calcium 8.2 L 8.5 Ferritin 407 H Total Bilirubin AST ALT Alkaline Phosphatase Lactate Dehydrogenase 447 H Troponin I High Sens C-Reactive Protein 6.16 H B-Natriuretic Peptide Total Protein Albumin Procalcitonin Urine Color Urine Appearance Urine pH Ur Specific [place] Urine Protein Urine Glucose (UA) Urine Ketones Urine Blood Urine Nitrite Ur Leukocyte Esterase Urine RBC Urine WBC Ur Squamous Epith Cells Urine Bacteria Other Casts Urine Mucus Urine Yeast Urine Eosinophils % Ur Random Sodium Urine Creatinine Coronavirus (PCR) Influenza Type A (PCR) Influenza Type B (PCR) RSV RNA Qual (PCR) 08/30/20 08/30/20 08/31/20 05:17 09:42 14:45 WBC RBC Hgb Hct MCV MCH MCHC RDW Plt Count MPV Immature Gran % (Auto) Neut % (Auto) Lymph % (Auto) [place] % (Auto) Eos % (Auto) Baso % (Auto) Lymph # (Auto) [place] # (Auto) Eos # (Auto) Baso # (Auto) Abs Immat Gran (auto) Absolute Neuts (auto) Absolute Nucleated RBC Nucleated RBC % (auto) PT INR APTT D-Dimer 869 ABG pH 7.46 H ABG pCO2 35 ABG pO2 73 L ABG HCO3 25 ABG O2 Saturation 94.0 ABG Base Excess 1.7 Oxygen Given 5 L Sodium 136 Potassium 5.0 Chloride 100 Carbon Dioxide 24 Anion Gap 17 BUN 38 H Creatinine 1.54 H Estim Creat Clear Calc 30.4 Estimated GFR 32 Random Glucose 162 H Lactic Acid Calcium 8.1 L Ferritin Total Bilirubin AST ALT Alkaline Phosphatase Lactate Dehydrogenase Troponin I High Sens C-Reactive Protein B-Natriuretic Peptide Total Protein Albumin Procalcitonin Urine Color Urine Appearance Urine pH Ur Specific [place] Urine Protein Urine Glucose (UA) Urine Ketones Urine Blood Urine Nitrite Ur Leukocyte Esterase Urine RBC Urine WBC Ur Squamous Epith Cells Urine Bacteria Other Casts Urine Mucus Urine Yeast Urine Eosinophils % Ur Random Sodium Urine Creatinine Coronavirus (PCR) Influenza Type A (PCR) Influenza Type B (PCR) RSV RNA Qual (PCR) 09/02/20 09/03/20 09/04/20 11:58 05:15 05:05 WBC RBC Hgb Hct MCV MCH MCHC RDW Plt Count MPV Immature Gran % (Auto) Neut % (Auto) Lymph % (Auto) [place] % (Auto) Eos % (Auto) Baso % (Auto) Lymph # (Auto) [place] # (Auto) Eos # (Auto) Baso # (Auto) Abs Immat Gran (auto) Absolute Neuts (auto) Absolute Nucleated RBC Nucleated RBC % (auto) PT INR APTT D-Dimer ABG pH ABG pCO2 ABG pO2 ABG HCO3 ABG O2 Saturation ABG Base Excess Oxygen Given Sodium 138 139 Potassium 5.2 H 5.1 Chloride 99 98 Carbon Dioxide 27 27 Anion Gap 17 19 BUN 52 H 55 H Creatinine 2.00 H 1.84 H Estim Creat Clear Calc 23.5 25.5 Estimated GFR 24 26 Random Glucose 221 H D 235 H Lactic Acid Calcium 8.8 D 8.8 Ferritin Total Bilirubin AST ALT Alkaline Phosphatase Lactate Dehydrogenase Troponin I High Sens C-Reactive Protein B-Natriuretic Peptide Total Protein Albumin Procalcitonin Urine Color YELLOW Urine Appearance CLOUDY Urine pH 6.0 Ur Specific [place] 1.020 Urine Protein NEG Urine Glucose (UA) NEG Urine Ketones NEG Urine Blood NEG Urine Nitrite POS H Ur Leukocyte Esterase TRACE H Urine RBC 1-4 Urine WBC 10-14 H Ur Squamous Epith Cells 1+ Urine Bacteria 4+ Other Casts Urine Mucus 1+ Urine Yeast 2+ Urine Eosinophils % Ur Random Sodium Urine Creatinine Coronavirus (PCR) Influenza Type A (PCR) Influenza Type B (PCR) RSV RNA Qual (PCR) 09/04/20 09/04/20 05:05 05:05 WBC RBC Hgb Hct MCV MCH MCHC RDW Plt Count MPV Immature Gran % (Auto) Neut % (Auto) Lymph % (Auto) [place] % (Auto) Eos % (Auto) Baso % (Auto) Lymph # (Auto) [place] # (Auto) Eos # (Auto) Baso # (Auto) Abs Immat Gran (auto) Absolute Neuts (auto) Absolute Nucleated RBC Nucleated RBC % (auto) PT INR APTT D-Dimer ABG pH ABG pCO2 ABG pO2 ABG HCO3 ABG O2 Saturation ABG Base Excess Oxygen Given Sodium Potassium Chloride Carbon Dioxide Anion Gap BUN Creatinine Estim Creat Clear Calc Estimated GFR Random Glucose Lactic Acid Calcium Ferritin Total Bilirubin AST ALT Alkaline Phosphatase Lactate Dehydrogenase Troponin I High Sens C-Reactive Protein B-Natriuretic Peptide Total Protein Albumin Procalcitonin Urine Color Urine Appearance Urine pH Ur Specific [place] Urine Protein Urine Glucose (UA) Urine Ketones Urine Blood Urine Nitrite Ur Leukocyte Esterase Urine RBC Urine WBC Ur Squamous Epith Cells Urine Bacteria Other Casts Urine Mucus Urine Yeast Urine Eosinophils % 0.0 Ur Random Sodium 87.0 Urine Creatinine 47.50 Coronavirus (PCR) Influenza Type A (PCR) Influenza Type B (PCR) RSV RNA Qual (PCR) Discharge Plan Discharge Patient Disposition: er [facility] Referrals: [facility] [Outside] Physician,Unknown [Primary Care Provider] - Discharge Medications: New guaifenesin 100 mg/5 mL Liquid 5 ml PO Q6H Qty: 40 RF: 0 famotidine 20 mg Tablet 40 mg PO BEDTIME Qty: 30 RF: 0 docusate sodium 100 mg Capsule 100 mg PO BEDTIME Qty: 30 RF: 0 cefuroxime axetil 500 mg Tablet 250 mg PO BID Qty: 10 RF: 0 albuterol sulfate [Ventolin HFA] 90 mcg/actuation Hfa Aerosol Inhaler 4 puff inhalation Q2H PRN (Reason: Shortness Of Breath/Wheezing) Qty: 8.5 RF: 0 doxycycline hyclate 100 mg Tablet 100 mg PO BID Qty: 10 RF: 0 Spiriva with HandiHaler 18 mcg Capsule, W/Inhalation Device 18 mcg inhalation RDAILY Qty: 1 RF: 0 zinc sulfate [Zinc-220] 220 (50) mg Capsule 220 mg PO DAILY Qty: 30 RF: 0 Breo Ellipta 200-25 mcg/dose Blister With Device 1 puff inhalation RDAILY Qty: 1 RF: 0 dexamethasone 6 mg tablet 6 mg PO DAILY Qty: 2 RF: 0 Discharge Orders: Discharge Order (Routine); Ordered 09/05/20 Ordered By: Muriel Lang Diet: advance to usual diet and diabetic diet Activity on Discharge: As tolerated Stand Alone Forms: Patient Portal Discharge page Other Ambulatory Orders: Basic Metabolic Panel (Routine) Timeframe: 1 Week Facility: [facility] - Location: Laboratory Ordered By: Muriel Lang Complete Blood Count no Diff (Routine) Timeframe: 1 Week Facility: [facility] - Location: Laboratory Ordered By: Muriel Lang Hemoglobin A1c (Routine) Timeframe: 1 Week Facility: [facility] - Location: Laboratory Ordered By: Muriel Lang Care Plan Goals: Patient issue came with acute hypoxemic respiratory failure secondary to COVID pneumonia-patient was started on steroids, antibiotics and oxygen support: Seen by Pulmonary and Infectious Disease: Also added Breo and albuterol: With above management patient is breathing seems to be improved. Please complete the antibiotic and steroid course out patiently. Consider repeating chest imaging study in 3-4 weeks to see resolution of pneumonia. In addition patient also has UTI: Please complete the antibiotics as above. Anemia: H&H is stable around 10, monitor CBC in rehab and further management as per rehab. Probable CKD: No baseline available, renal sono seems fine seen by Nephrology: Patient is maintaining creatinine around 1.7-1.8 range: Probably plateaued. Monitor renal function and electrolytes out patiently in rehab and further management as per rehab, consider outpatient nephrology follow-up. Health Concerns: As above. Plan of Treatment: As above. Discharge Date/Time: 09/05/20 14:20
[2020-09-05 14:47] LABS: IgA 202 mg/dL (70-320); IgG 1066 mg/dL (600-1540); IgM 177 mg/dL (50-300)
== END 2020-09-05 14:20 | disposition skilled nursing facility (03) | DRG 177 ==
LOC: HO.ED 08-27 01:28 → HO.EDOVER 08-27 07:09 → HO.IMC 08-27 07:24
PROVIDERS: Hospitalist; Internal Medicine; Internal Medicine Nephrology; Physician Assistant; Admitting Provider Internal Medicine; Emergency Provider Emergency Medicine; Visit Provider Internal Medicine
DX: U07.1 COVID-19 (principal); J96.01 Acute respiratory failure with hypoxia; J12.82 Pneumonia due to coronavirus disease 2019; N17.9 Acute kidney failure, unspecified; N39.0 Urinary tract infection, site not specified; J45.901 Unspecified asthma with (acute) exacerbation; N18.9 Chronic kidney disease, unspecified; D63.1 Anemia in chronic kidney disease; F17.210 Nicotine dependence, cigarettes, uncomplicated; Z71.6 Tobacco abuse counseling; F41.9 Anxiety disorder, unspecified; Z88.6 Allergy status to analgesic agent; Z79.51 Long term (current) use of inhaled steroids; Z79.899 Other long term (current) drug therapy
CPT/HCPCS: 0241U; 36415; 36600; 70450; 71045; 71250; 72125; 74150; 76775; 80048; 80053; 81001; 82728; 82784; 82803; 83605; 83615; 83880; 84145; 84300; 84484; 85025; 85379; 85610; 85730; 86140; 86334; 87040; 87086; 89190; 93005; 94640; 94664; 96361; 96365; 96367; 96375; 97116; 97162; 97530; 99285; J0696; J1100; J1650; J2270; J2405; J2920; J2930; J3475

== ENCOUNTER 2020-11-13 01:52 | Inpatient (IN) | payer MEDICARE, SELFPAY ==
[2020-11-13] VITALS (15 sets, daily range): BP systolic 110–146; BP diastolic 53–86; PULSE 78–114; RESP 18–20; TEMP 36.2–37.2; O2SAT 90–100; BMI 25.7
--- NOTE | ~2020-11-13 | CT_ITS ---
EXAMINATION: CT ABDOMEN AND PELVIS WITHOUT CONTRAST CLINICAL INFORMATION: Small bowel dilatation/distention COMPARISON: KUB earlier today, CT abdomen pelvis 08/26/2020 TECHNIQUE: Multidetector volumetric imaging was performed from the dome of the liver through the pubic symphysis without IV contrast. Sagittal and coronal reformatted images were obtained on the technologist's workstation. This CT examination was performed using dose optimization techniques as appropriate, variously including the following: *Automated exposure control. *Adjustment of mA and/or kV according to patient size (this includes techniques or standardized protocols for targeted exams where dose is matched to indication/reason for exam; i.e. extremities or head). *Use of iterative reconstruction technique. DLP: 652 mGy-cm FINDINGS: ABDOMEN/PELVIS: Lung bases: A bipolar pacemaker is again seen. Some chronic changes are present at the lung bases. No pleural effusions Peritoneal Space: No significant free air or free fluid identified. Liver, Gallbladder, Biliary Tree: The liver is normal in size, shape, and attenuation. Two unchanged hypodensities are seen in the liver, one in the right lobe measuring only 3 mm and one in the left lobe measuring 0.8 cm. The larger abnormality measures 10 Hounsfield units and is consistent with a simple cyst. The smaller density is almost certainly a cyst as well. No suspicious focal hepatic lesion or biliary ductal dilatation is present. The gallbladder once again demonstrates subtle layering high density gallstones but is otherwise unremarkable without evidence of wall thickening, or obvious pericholecystic inflammatory changes. Pancreas: Unremarkable. Spleen: Unremarkable. Adrenal Glands: Minimal nodular thickening of the left adrenal gland is unchanged. The right adrenal gland is normal.. Kidneys and Ureters: The kidneys are normal in size, shape, and attenuation. No hydronephrosis, hydroureter, or calculi seen. No perinephric stranding. Bladder: Unremarkable. Gastrointestinal Tract: Colonic diverticular changes are present without diverticulitis. The small and large bowel are otherwise unremarkable. No small bowel dilatation is seen. The appendix is unremarkable. Abdominal Wall: No significant hernia is appreciated. Lymph Nodes: No lymphadenopathy. Vascular: Minimal calcific atherosclerotic change present in the aorta without aneurysm. The IVC appears unremarkable. PELVIC VISCERA: Status post hysterectomy. An abnormal adnexal mass is not seen. No free intraperitoneal fluid is seen. OSSEUS STRUCTURES: Moderate degenerative changes are noted in the spine most marked at L4-L5. No bony destructive lesions are seen. No acute spinal fracture is detected. CT/CT abdomen pelvis wo con IMPRESSION: 1. Cholelithiasis without cholecystitis. 2. Incidentally noted hepatic cysts, colonic diverticular changes and hysterectomy. 3. No evidence of small bowel obstruction
--- NOTE | ~2020-11-13 | XR_ITS ---
EXAMINATION: XR ABDOMEN KUB CLINICAL INDICATION: Constipation COMPARISON: CT abdomen and pelvis 08/26/2020. TECHNIQUE: AP x2 views of the abdomen. FINDINGS: There is scattered gas in the small and some and large bowel without contrast the patient. No fecal impaction. There is a loop of small bowel right abdomen measuring just over 4 cm. There is no visible wall thickening or thickening of the valvulae conniventes. No pneumatosis. No bowel displacement. The urinary bladder is distended. The lung bases are clear. There is tapering at the cardiophrenic angles corresponding to areolar tissue on CT. Bipolar pacemaker wires are present. No acute bony abnormality. Again, there are posttraumatic changes in the pubis. XR/XR KUB IMPRESSION: Scattered gas in bowel with borderline distended small bowel loops right abdomen. No pneumatosis or constipation.
--- NOTE | ~2020-11-13 | XR_ITS ---
EXAMINATION: XR CHEST CLINICAL INFORMATION: Shortness of breath COMPARISON: 08/31/2020 TECHNIQUE: Frontal view of the chest was obtained. FINDINGS: Streaky opacities within the lower lobes bilaterally. Small left pleural effusion. Normal heart size and pulmonary vascularity. No acute or suspicious osseous abnormalities. XR/XR chest 1V IMPRESSION: Bilateral lower lobe streaky airspace opacities likely reflect segmental atelectasis. Trace bilateral pleural effusions.
--- NOTE | ~2020-11-13 | US_ITS ---
EXAMINATION: US RETROPERITONEAL LIMITED (RENAL ONLY) CLINICAL INFORMATION: Flank pain. UTI. COMPARISON: Renal ultrasound 09/04/2020. CT abdomen 08/26/2020. TECHNIQUE: Real-time imaging of the kidneys. Technically limited study secondary to body habitus and positioning. FINDINGS: Extremely limited examination due to body habitus, patient unable to evaluated in decubitus position. RIGHT KIDNEY: 8.1 x 4.5 x 4.7 cm (SAG x AP x TRV). Limited visualization. Echogenicity of the visualized parenchyma is within normal limits. No calculi or focal parenchymal lesions. No hydronephrosis. LEFT KIDNEY: 7.3 x 3.6 x 3.9 cm (SAG x AP x TRV). Limited visualization. Echogenicity of the visualized parenchyma is within normal limits. No calculi or focal parenchymal lesions. No hydronephrosis. US/US renal BI IMPRESSION: Extremely limited study. No hydronephrosis is seen. No calculi or lesions in the visualized parenchyma.
--- NOTE | 2020-11-13 01:56 | ECG_ITS ---
Test Reason : FALL Blood Pressure : / mmHG Vent. Rate : 086 BPM Atrial Rate : 084 BPM P-R Int : 000 ms QRS Dur : 088 ms QT Int : 352 ms P-R-T Axes : 000 012 124 degrees QTc Int : 421 ms Poor data quality Possible Normal sinus rhythm , and consecutive Premature ventricular complexes Nonspecific ST and T wave abnormality Abnormal ECG When compared with ECG of 27-AUG-2020 00:46, Premature ventricular complexes are now Present Nonspecific T wave abnormality, worse in Inferior leads Nonspecific T wave abnormality now evident in Anterolateral leads Referred By: Debbie Vázquez Electronically Signed By:MCKENNA MUÑOZ MD
--- NOTE | 2020-11-13 02:31 | ED.SOB ---
HPI - SOB/Dyspnea General Chief Complaint: Dyspnea Stated Complaint: DIFF BREATHING Time Seen by Provider: 11/13/20 02:14 History of Present Illness HPI Narrative: Patient is 80-year-old female presents today with having increasing shortness of breath. Patient had a previous infection Coronavirus 19. History of asthma. History of chronic renal disease. History of respiratory failure in the past. Was at home felt short of breath. Symptoms been ongoing for a day. No cough no congestion or respiratory symptoms. No leg swelling. No diaphoresis. Patient also has chest pain that is over the left chest. The pain is dull in nature patient unable to give detailed history. On and off without any specific trigger. Currently has no chest pain. Patient feels very weak on her legs. Did not notice any bloody stool. No history of blood clot. Patient not on any blood thinners. No headache. Related Data Previous Rx's Medication Instructions Recorded albuterol sulfate [Ventolin HFA] 4 puff INHALATION Q2H PRN #8.5 g 09/05/20 cefuroxime axetil 250 mg PO BID #10 tab 09/05/20 dexamethasone 6 mg PO DAILY #2 tab 09/05/20 docusate sodium 100 mg PO BEDTIME #30 cap 09/05/20 doxycycline hyclate 100 mg PO BID #10 tab 09/05/20 famotidine 40 mg PO BEDTIME #30 tab 09/05/20 fluticasone furoate-vilanterol 1 puff INHALATION RDAILY #1 ea 09/05/20 [Breo Ellipta] guaifenesin 5 ml PO Q6H #40 ml 09/05/20 tiotropium bromide [Spiriva with 18 mcg INHALATION RDAILY #1 inh 09/05/20 HandiHaler] zinc sulfate [Zinc-220] 220 mg PO DAILY #30 cap 09/05/20 Allergies Allergy/AdvReac Type Severity Reaction Status Date / Time aspirin [ASPIRIN] Allergy Unknown VOMITING Verified 08/26/20 21:03 Review of Systems Review of Systems: Yes all other systems are reviewed and are negative [facility] Past Medical History Medical History Arthritis Asthma Seizures Social History Social History Household Members: None Housing: Apartment Smoking Status: Current some day smoker Tobacco Type: Cigarette Cigarettes Per Day: 4 Second Hand Smoke Exposure: No Advance Directives: No Advance Directives Information Provided: No service: No Current occupational status: disabled Physical Exam Vital Signs: Vital Signs: Last Vital Signs Temp 98.9 F 11/13/20 02:20 Pulse 114 H 11/13/20 06:34 Resp 19 11/13/20 02:20 BP 143/70 H 11/13/20 06:34 Pulse Ox 96 11/13/20 03:00 Body Mass Index 25.7 Appearance: Alert. Oriented X3. No acute distress. Eyes: Pupils equal, round and reactive to light. ENT: Pharynx normal. Neck: Normal inspection. Neck supple. No lymph nodes noted. No crepitus CVS: Normal heart rate and rhythm. Pulses normal. Normal S1 and S2 Respiratory: No respiratory distress. Breath sounds normal. No Wheezing. No rales Abdomen: Soft and nontender. No rigidity. No distention. good BS x4 Skin: Skin warm and dry. Normal skin color. Normal skin turgor. Extremities: No lower extremity edema. Neurovascular intact to all extremities. No Lacerations. No Rash Neuro: Oriented X 3. No motor deficit. No sensory deficit. Moving all extermities. No slurred speech MDM - SOB/Dyspnea MDM Narrative Medical decision making narrative: Positive shortness of breath question etiology. ABG was done on room air showed no CO2 retention. Patient's PaO2 was in the 60s approximately baseline. Patient's EKG is unchanged from previous. Patient's hemoglobin is 9.4. Looking up old hemoglobin patient's baseline hemoglobin is at 10-11 range. Rectal exam was done. It was heme negative. Patient troponin mildly elevated in the 30s. Baseline troponin is slightly higher than this. Chest x-ray showed no focal infiltrate. Patient's coronavirus test was negative. Will admit for further evaluation. Patient's chest pain is atypical. But given patient's previous medical history will get 2 sets of enzymes at least. Lab Data Attestation: I reviewed the patient's lab results. Result diagrams: 11/13/20 03:11 11/13/20 03:11 Labs: Lab Results 11/13/20 11/13/20 11/13/20 Range/Units 03:10 03:10 03:11 WBC 6.7 (4.8-10.8) X10*3/uL RBC 3.11 L (4.20-5.50) X10*6/uL Hgb 9.4 L (12.0-16.0) g/dl Hct 28.3 L (37-47) % MCV 91.0 (80-98) fL MCH 30.2 (27.0-33.0) pg MCHC 33.2 (31.0-35.0) g/dl RDW 14.7 (11.0-16.0) % Plt Count 258 D (160-400) X10*3/uL MPV 10.5 (9.4-12.3) fL Immature Gran % (Auto) 0.9 H (0.0-0.4) % Neut % (Auto) 56.3 (45-73) % Lymph % (Auto) 29.0 (20-40) % [place] % (Auto) 13.0 H (2-11) % Eos % (Auto) 0.7 (0-4) % Baso % (Auto) 0.1 (0-2) % Lymph # (Auto) 1.9 (1.2-4.9) X10*3/uL [place] # (Auto) 0.9 (0.1-1.2) X10*3/uL Eos # (Auto) 0.1 (0.0-0.4) X10*3/uL Baso # (Auto) 0.0 (0.0-0.2) X10*3/uL Abs Immat Gran (auto) 0.06 H (0.00-0.03) X10*3/uL Absolute Neuts (auto) 3.8 (2.0-8.3) X10*3/uL Absolute Nucleated RBC 0.000 (0.0-0.012) X10*3/uL Nucleated RBC % (auto) 0.0 (0.0-0.2) /100WBC PT (10.8-13.0) SEC INR (0.9-1.1) Hold Blue Top O2 Saturation 88.0 % ABG pH at Pt Temp 7.47 H (7.35-7.45) ABG pH (Temp Correct) 7.47 H (7.35-7.45) ABG pCO2 at Pt Temp 39 (32-45) mmHg ABG pCO2 (Temp Corrct 40 (32-45) mmHg ABG pO2 at Pt Temp 62 L (83-108) mmHg ABG pO2 (Temp Correct 63 L (83-108) ABG HCO3 29 H (22-26) mmol/L ABG Base Excess (Actual) 5.4 mmol/L Lactic Acid (0.5-2.0) mmol/L Troponin I High Sens (<3.5-17.0) ng/L B-Natriuretic Peptide (<100) pg/mL Stool Occult Blood (NEGATIVE) COVID-19 (GHANSHYAM) Negative (Negative) COVID-19 Clin Com See Note 11/13/20 11/13/20 11/13/20 Range/Units 03:11 03:11 03:11 WBC (4.8-10.8) X10*3/uL RBC (4.20-5.50) X10*6/uL Hgb (12.0-16.0) g/dl Hct (37-47) % MCV (80-98) fL MCH (27.0-33.0) pg MCHC (31.0-35.0) g/dl RDW (11.0-16.0) % Plt Count (160-400) X10*3/uL MPV (9.4-12.3) fL Immature Gran % (Auto) (0.0-0.4) % Neut % (Auto) (45-73) % Lymph % (Auto) (20-40) % [place] % (Auto) (2-11) % Eos % (Auto) (0-4) % Baso % (Auto) (0-2) % Lymph # (Auto) (1.2-4.9) X10*3/uL [place] # (Auto) (0.1-1.2) X10*3/uL Eos # (Auto) (0.0-0.4) X10*3/uL Baso # (Auto) (0.0-0.2) X10*3/uL Abs Immat Gran (auto) (0.00-0.03) X10*3/uL Absolute Neuts (auto) (2.0-8.3) X10*3/uL Absolute Nucleated RBC (0.0-0.012) X10*3/uL Nucleated RBC % (auto) (0.0-0.2) /100WBC PT 14.7 H (10.8-13.0) SEC INR 1.2 H (0.9-1.1) Hold Blue Top SEE NOTE O2 Saturation % ABG pH at Pt Temp (7.35-7.45) ABG pH (Temp Correct) (7.35-7.45) ABG pCO2 at Pt Temp (32-45) mmHg ABG pCO2 (Temp Corrct (32-45) mmHg ABG pO2 at Pt Temp (83-108) mmHg ABG pO2 (Temp Correct (83-108) ABG HCO3 (22-26) mmol/L ABG Base Excess (Actual) mmol/L Lactic Acid 1.8 (0.5-2.0) mmol/L Troponin I High Sens 38.1 H (<3.5-17.0) ng/L B-Natriuretic Peptide 89 (<100) pg/mL Stool Occult Blood (NEGATIVE) COVID-19 (GHANSHYAM) (Negative) COVID-19 Clin Com 11/13/20 Range/Units 05:43 WBC (4.8-10.8) X10*3/uL RBC (4.20-5.50) X10*6/uL Hgb (12.0-16.0) g/dl Hct (37-47) % MCV (80-98) fL MCH (27.0-33.0) pg MCHC (31.0-35.0) g/dl RDW (11.0-16.0) % Plt Count (160-400) X10*3/uL MPV (9.4-12.3) fL Immature Gran % (Auto) (0.0-0.4) % Neut % (Auto) (45-73) % Lymph % (Auto) (20-40) % [place] % (Auto) (2-11) % Eos % (Auto) (0-4) % Baso % (Auto) (0-2) % Lymph # (Auto) (1.2-4.9) X10*3/uL [place] # (Auto) (0.1-1.2) X10*3/uL Eos # (Auto) (0.0-0.4) X10*3/uL Baso # (Auto) (0.0-0.2) X10*3/uL Abs Immat Gran (auto) (0.00-0.03) X10*3/uL Absolute Neuts (auto) (2.0-8.3) X10*3/uL Absolute Nucleated RBC (0.0-0.012) X10*3/uL Nucleated RBC % (auto) (0.0-0.2) /100WBC PT (10.8-13.0) SEC INR (0.9-1.1) Hold Blue Top O2 Saturation % ABG pH at Pt Temp (7.35-7.45) ABG pH (Temp Correct) (7.35-7.45) ABG pCO2 at Pt Temp (32-45) mmHg ABG pCO2 (Temp Corrct (32-45) mmHg ABG pO2 at Pt Temp (83-108) mmHg ABG pO2 (Temp Correct (83-108) ABG HCO3 (22-26) mmol/L ABG Base Excess (Actual) mmol/L Lactic Acid (0.5-2.0) mmol/L Troponin I High Sens (<3.5-17.0) ng/L B-Natriuretic Peptide (<100) pg/mL Stool Occult Blood NEGATIVE (NEGATIVE) COVID-19 (GHANSHYAM) (Negative) COVID-19 Clin Com Discharge Plan Discharge Clinical Impression: Anemia, Chronic shortness of breath, Chest tightness Patient Disposition: Admitted As Inpatient
[2020-11-13] MEDS: Albuterol/Iprat 2.5/0.5MG 3 ML AMPUL.NEB INHALE ×4 (02:52→19:52)
[2020-11-13 03:18] LABS: ABG Base Excess 5.4 mmol/L; ABG HCO3 29 mmol/L (22-26); ABG pCO2 39 mmHg (32-45); ABG pCO2 TC 40 mmHg (32-45); ABG pH 7.47 (7.35-7.45); ABG pH TC 7.47 (7.35-7.45); ABG pO2 62 mmHg (83-108); ABG pO2 TC 63 (83-108)
[2020-11-13 03:19] LABS: MANUAL DIFF FLAG NO
[2020-11-13 03:21] LABS: Basophils Percent Auto 0.1 % (0-2); Eosinophils Absolute Auto 0.1 X10*3/uL (0.0-0.4); Eosinophils Percent Auto 0.7 % (0-4); Hematocrit 28.3 % (37-47); Hemoglobin 9.4 g/dl (12.0-16.0); Imm Gran Abs Auto 0.06 X10*3/uL (0.00-0.03); Imm Gran Pct Auto 0.9 % (0.0-0.4); Lymphocytes Absolute Auto 1.9 X10*3/uL (1.2-4.9); Mean Corpuscular HGB Conc 33.2 g/dl (31.0-35.0); Mean Corpuscular Hemoglobin 30.2 pg (27.0-33.0); Mean Platelet Volume 10.5 fL (9.4-12.3); Monocytes Absolute Auto 0.9 X10*3/uL (0.1-1.2); Neutrophils Absolute Auto 3.8 X10*3/uL (2.0-8.3); Neutrophils Percent Auto 56.3 % (45-73); Platelet Count 258 X10*3/uL (160-400); Red Blood Count 3.11 X10*6/uL (4.20-5.50); Red Cell Distribution Width 14.7 % (11.0-16.0); White Blood Count 6.7 X10*3/uL (4.8-10.8)
[2020-11-13 03:30] LABS: ABG Refer to POC result
[2020-11-13 03:36] LABS: INTERNATIONAL NORM RATIO 1.2 (0.9-1.1); Prothrombin Time 14.7 SEC (10.8-13.0)
[2020-11-13 03:42] LABS: Lactic Acid 1.8 mmol/L (0.5-2.0)
[2020-11-13 03:49] LABS: COVID-19 Test Negative (Negative)
[2020-11-13 03:57] LABS: Troponin-I High Sensitivity 38.1 ng/L (<3.5-17.0)
[2020-11-13] MEDS: Acetaminophen 325 MG TABLET 650 MG PO (04:06)
[2020-11-13] MEDS: methylPREDNISolone Sod Succ 125 MG/2 ML VIAL IVPUSH (04:06)
[2020-11-13 04:12] LABS: B Type Natriuretic Peptide 89 pg/mL (<100)
[2020-11-13 05:54] LABS: OBS Int Ctl Valid YES; OBS1 NEGATIVE (NEGATIVE)
--- NOTE | 2020-11-13 06:09 | PC.NURSE ---
Repeat Chem, and trop was obtained and sent to the lab at this time
[2020-11-13 06:38] LABS: Anion Gap 16 (12-20); Blood Urea Nitrogen 19 mg/dL (9-16); Calcium 7.6 mg/dL (8.4-10.2); Carbon Dioxide 27 mmol/L (22-29); Chloride 97 mmol/L (96-108); Creatinine Clr Calc Pharmacy 28.1; Estimated Glomerular Filt Rate 34; Glucose Random 104 mg/dL (60-115); Potassium 2.4 mmol/L (3.3-5.1); Sodium 138 mmol/L (135-145)
[2020-11-13] MEDS: Potassium Chloride/H20 10 MEQ/100 ML PIGGYBACK 100 MEQ IV ×2 (06:52→07:50)
[2020-11-13] MEDS: Potassium Chloride Packet 20 MEQ PACKET 40 MEQ PO (06:52)
[2020-11-13 07:12] LABS: Magnesium 1.3 mg/dL (1.6-2.6)
--- NOTE | 2020-11-13 07:22 | PC.NURSE ---
report taken from raul chi pt here for reported weakness at home, denies mechanical fall or injury. pt has iv potassium infusing per emar for replacement. hospitalist called for ?inpt admission. pt sitting up in stretcher, tolerating po/ w/o issue, speaking in concise, clear sentences. wctm.
[2020-11-13] MEDS: Potassium Chloride Packet 20 MEQ PACKET PO (07:50)
[2020-11-13] MEDS: Magnesium Sulfate/H2O 2 GM/50 ML PIGGYBACK IV (07:50)
[2020-11-13] MEDS: Throat Lozenge, Medicated LOZENGE 1 LOZENGE MUCOUS MEM ×2 (09:52→15:18)
[2020-11-13] MEDS: oxyCODONE HCl Immed Release 5 MG TABLET PO ×3 (09:56→20:50)
--- NOTE | 2020-11-13 10:29 | PC.NURSE ---
pt seen by hospitalist, pending inpt admission. medicated per emar. assisted to bedpan and ua spec and strept swab obtained and sent. pt no longer wants throat lozenges, sts they taste horrible .vss. awaiting inpt bed assign.
[2020-11-13 10:38] LABS: Glucose Urine UA NEG (NEG); Leukocyte Esterase Urine TRACE (NEG); Nitrite Urine POS (NEG); PH 5.5 (5.0-8.0); UACC Culture Trigger YES; Urine Blood NEG (NEG); Urine Ketones NEG (NEG); Urine Protein NEG (NEG-TRACE)
[2020-11-13 10:40] LABS: Appearance Urine HAZY; Color Urine STRAW
[2020-11-13 11:06] LABS: Bacteria Urine 2+ /LPF; Mucus Urine 1+ /LPF; RBC Urine 0-2 /HPF (0); Squamous Epithelial Cell Urine 2+ /LPF
--- NOTE | 2020-11-13 13:26 | P.HPHOSP_ITS ---
History of Present Illness Date of Service: 11/13/20 Chief Complaint: Generalized weakness and shortness of breath 80-year-old female who was admitted earlier in August due to COVID, came back because of generalized weakness and shortness of breath. When I saw the patient patient still feels generalized weakness as body pains She says she also had initially short of breath which is improving, currently saturating in 96 range on room air. Labs horvath mild anemia, chest x-ray mostly unremarkable except has mild pleural effusion. COVID negative No leukocytosis or fever Severe hypokalemia and mild hypomagnesemia Past medical history: Seizures, asthma, arthritis Past surgical history: Denies Family history: Denies Social history: Comes from home, lives with family, denies any tobacco alcohol or illicit drugs Review of Systems Review of Systems: Patient has some headaches. Denies any blurred vision or any discharge. Denies any fever or chills Has upper and lower extremity pains Denies any abdominal pain or nausea or vomiting or diarrhea or constipation. Denies any focal weakness or numbness Has had short of breath initially as per patient but improving. Denies any chest pain or palpitations or cough or phlegm. has dysuria Yes all other systems are reviewed and are negative PMFSH Medical History Arthritis Asthma Seizures Social History Household Members: None Housing: Apartment Alcohol intake: never Smoking Status: Former smoker Tobacco Type: Cigarette Cigarettes Per Day: 4 Smoked in Last 30 Days: No Second Hand Smoke Exposure: No Advance Directives: No Advance Directives Information Provided: No service: No Current occupational status: disabled Meds Allergies Allergy/AdvReac Type Severity Reaction Status Date / Time aspirin [ASPIRIN] Allergy Unknown VOMITING Verified 08/26/20 21:03 Active Medications: Current Medications Generic Name Dose Route Start Last Admin Trade Name Freq PRN Reason Stop Dose Admin Acetaminophen 650 mg 11/13/20 09:42 Acetaminophen 325 Mg Tablet PO Q6H PRN Pain, Mild (Pain Scale 1-3) Albuterol/Ipratropium 3 ml 11/13/20 12:00 11/13/20 11:09 Albuterol/Iprat 2.5/0.5mg 3 Ml Ampul.Neb INHALE 3 ml RQID FELICITY Administration Albuterol/Ipratropium 3 ml 11/13/20 09:34 Albuterol/Iprat 2.5/0.5mg 3 Ml Ampul.Neb INHALE Q4H PRN shortness of breath Benzocaine 1 lozenge 11/13/20 09:34 11/13/20 12:51 Throat Lozenge, Medicated Lozenge MUCOUS MEM Not Given Q2H [facility] Divalproex Sodium 250 mg 11/13/20 15:00 Divalproex Sodium 250 Mg Tablet.Dr PO TID [facility] Famotidine 20 mg 11/13/20 21:00 Famotidine 20 Mg Tablet PO BID [facility] Fluticasone/Vilanterol 1 puff 11/14/20 09:00 Fluticasone/Vilanterol 100/25 Blst.W.Dev INHALE RDAILY [facility] Loratadine 10 mg 11/14/20 09:00 Loratadine 10 Mg Tablet PO DAILY [facility] Methylprednisolone Sodium Succinate 40 mg 11/13/20 21:00 Methylprednisolone Sod Succ 40 Mg/Ml Vial IVPUSH BID [facility] Montelukast Sodium 10 mg 11/13/20 21:00 Montelukast Sodium 10 Mg Tablet PO BEDTIME [facility] Multivitamins/Vitamin C 1 tab 11/14/20 09:00 Multivitamin Tablet PO DAILY [facility] Oxycodone HCl 5 mg 11/13/20 09:34 11/13/20 09:56 Oxycodone Hcl Immed Release 5 Mg Tablet PO 5 mg Q6H PRN Administration Pain, Mild (Pain Scale 1-3) Pharmacy Consult 1 each 11/13/20 06:30 Consult Rx Perform Med Rec MISCELLANE ONCE PRN Consult order Sodium Chloride 3 ml 11/13/20 16:00 0.9 % Sodium Chloride Flush 3 Ml Syringe IVFLUSH QSHIFT [facility] Tiotropium [place] 1 puff 11/14/20 08:00 Tiotropium [place] 18 Mcg Cap.W.Dev INHALE RDAILY [facility] Home Medications Medication Instructions Recorded Confirmed Last Taken Type acetaminophen 1 tab PO Q6H PRN 11/13/20 11/13/20 11/12/20 History albuterol sulfate [Ventolin HFA] 2 puff INHALATION Q4H PRN 11/13/20 11/13/20 11/12/20 History cetirizine 1 tab PO DAILY 11/13/20 11/13/20 11/12/20 History divalproex 1 tab PO TID 11/13/20 11/13/20 11/12/20 History fluticasone furoate-vilanterol 1 puff PO DAILY 11/13/20 11/13/20 11/12/20 History [Breo Ellipta] montelukast 1 tab PO BEDTIME 11/13/20 11/13/20 11/12/20 History multivitamin 1 tab PO DAILY 11/13/20 11/13/20 11/12/20 History tiotropium bromide [Spiriva with 1 cap INHALATION RDAILY 11/13/20 11/13/20 11/12/20 History HandiHaler] Physical Exam Vital Signs and Narrative: Vital Signs: Last Vital Signs Temp 98.9 F 11/13/20 02:20 Pulse 88 11/13/20 11:09 Resp 18 11/13/20 07:51 BP 119/86 11/13/20 10:14 Pulse Ox 99 11/13/20 10:14 Body Mass Index 25.7 Constitutional: cooperative and no acute distress Orientation/consciousness: patient oriented x3 Eyes: appearance normal, no icetreic, no discharge. Resp: Seems grossly diminished air entry at bases, has bilateral wheezing Cardio: Rate: regular rate Rhythm: regular rhythm GI: Palpation (GI): Soft to palpation Auscultation: normal bowel sounds Skin: Other: Patient appears dehydrated General skin exam: no rashes or lesions noted Neuro: General: patient oriented x3 Cognition (Neuro): normal cognition Extrem: General: Yes normal to inspection and Yes no pedal josef Results Labs CBC and Chem 7: 11/13/20 03:11 11/13/20 06:04 Labs: Laboratory Results - last 24 hr 11/13/20 11/13/20 11/13/20 03:10 03:10 03:11 MCV 91.0 MCH 30.2 MCHC 33.2 RDW 14.7 Plt Count 258 D MPV 10.5 Immature Gran % (Auto) 0.9 H Neut % (Auto) 56.3 Lymph % (Auto) 29.0 [place] % (Auto) 13.0 H Eos % (Auto) 0.7 Baso % (Auto) 0.1 Lymph # (Auto) 1.9 [place] # (Auto) 0.9 Eos # (Auto) 0.1 Baso # (Auto) 0.0 Abs Immat Gran (auto) 0.06 H Absolute Neuts (auto) 3.8 Absolute Nucleated RBC 0.000 Nucleated RBC % (auto) 0.0 PT INR Hold Blue Top O2 Saturation 88.0 ABG pH at Pt Temp 7.47 H ABG pH (Temp Correct) 7.47 H ABG pCO2 at Pt Temp 39 ABG pCO2 (Temp Corrct 40 ABG pO2 at Pt Temp 62 L ABG pO2 (Temp Correct 63 L ABG HCO3 29 H ABG Base Excess (Actual) 5.4 Anion Gap Estim Creat Clear Calc Estimated GFR Random Glucose Lactic Acid Calcium Magnesium Troponin I High Sens B-Natriuretic Peptide Urine Color Urine Appearance Urine pH Ur Specific [place] Urine Protein Urine Glucose (UA) Urine Ketones Urine Blood Urine Nitrite Ur Leukocyte Esterase Urine RBC Urine WBC Ur Squamous Epith Cells Urine Bacteria Urine Mucus Stool Occult Blood COVID-19 (GHANSHYAM) Negative COVID-19 cicayda Com See Note 11/13/20 11/13/20 11/13/20 03:11 03:11 03:11 MCV MCH MCHC RDW Plt Count MPV Immature Gran % (Auto) Neut % (Auto) Lymph % (Auto) [place] % (Auto) Eos % (Auto) Baso % (Auto) Lymph # (Auto) [place] # (Auto) Eos # (Auto) Baso # (Auto) Abs Immat Gran (auto) Absolute Neuts (auto) Absolute Nucleated RBC Nucleated RBC % (auto) PT 14.7 H INR 1.2 H Hold Blue Top SEE NOTE O2 Saturation ABG pH at Pt Temp ABG pH (Temp Correct) ABG pCO2 at Pt Temp ABG pCO2 (Temp Corrct ABG pO2 at Pt Temp ABG pO2 (Temp Correct ABG HCO3 ABG Base Excess (Actual) Anion Gap Estim Creat Clear Calc Estimated GFR Random Glucose Lactic Acid 1.8 Calcium Magnesium Troponin I High Sens 38.1 H B-Natriuretic Peptide 89 Urine Color Urine Appearance Urine pH Ur Specific [place] Urine Protein Urine Glucose (UA) Urine Ketones Urine Blood Urine Nitrite Ur Leukocyte Esterase Urine RBC Urine WBC Ur Squamous Epith Cells Urine Bacteria Urine Mucus Stool Occult Blood COVID-19 (GHANSHYAM) COVID-19 cicayda Com 11/13/20 11/13/20 11/13/20 05:43 06:04 06:04 MCV MCH MCHC RDW Plt Count MPV Immature Gran % (Auto) Neut % (Auto) Lymph % (Auto) [place] % (Auto) Eos % (Auto) Baso % (Auto) Lymph # (Auto) [place] # (Auto) Eos # (Auto) Baso # (Auto) Abs Immat Gran (auto) Absolute Neuts (auto) Absolute Nucleated RBC Nucleated RBC % (auto) PT INR Hold Blue Top O2 Saturation ABG pH at Pt Temp ABG pH (Temp Correct) ABG pCO2 at Pt Temp ABG pCO2 (Temp Corrct ABG pO2 at Pt Temp ABG pO2 (Temp Correct ABG HCO3 ABG Base Excess (Actual) Anion Gap 16 Estim Creat Clear Calc 28.1 Estimated GFR 34 Random Glucose 104 D Lactic Acid Calcium 7.6 L D Magnesium 1.3 L* Troponin I High Sens 34.0 H B-Natriuretic Peptide Urine Color Urine Appearance Urine pH Ur Specific [place] Urine Protein Urine Glucose (UA) Urine Ketones Urine Blood Urine Nitrite Ur Leukocyte Esterase Urine RBC Urine WBC Ur Squamous Epith Cells Urine Bacteria Urine Mucus Stool Occult Blood NEGATIVE COVID-19 (GHANSHYAM) COVID-19 Clin Com 11/13/20 10:23 MCV MCH MCHC RDW Plt Count MPV Immature Gran % (Auto) Neut % (Auto) Lymph % (Auto) [place] % (Auto) Eos % (Auto) Baso % (Auto) Lymph # (Auto) [place] # (Auto) Eos # (Auto) Baso # (Auto) Abs Immat Gran (auto) Absolute Neuts (auto) Absolute Nucleated RBC Nucleated RBC % (auto) PT INR Hold Blue Top O2 Saturation ABG pH at Pt Temp ABG pH (Temp Correct) ABG pCO2 at Pt Temp ABG pCO2 (Temp Corrct ABG pO2 at Pt Temp ABG pO2 (Temp Correct ABG HCO3 ABG Base Excess (Actual) Anion Gap Estim Creat Clear Calc Estimated GFR Random Glucose Lactic Acid Calcium Magnesium Troponin I High Sens B-Natriuretic Peptide Urine Color STRAW Urine Appearance HAZY Urine pH 5.5 Ur Specific [place] 1.010 Urine Protein NEG Urine Glucose (UA) NEG Urine Ketones NEG Urine Blood NEG Urine Nitrite POS H Ur Leukocyte Esterase TRACE H Urine RBC 0-2 Urine WBC 10-14 H Ur Squamous Epith Cells 2+ Urine Bacteria 2+ Urine Mucus 1+ Stool Occult Blood COVID-19 (GHANSHYAM) COVID-19 Clin Com Imaging Radiologist's Impressions: Impressions Chest X-Ray 11/13/20 01:56 IMPRESSION: Bilateral lower lobe streaky airspace opacities likely reflect segmental atelectasis. Trace bilateral pleural effusions. Assessment and Plan (1) Anemia: Status: Acute (2) Asthma: Status: Acute (3) Acute hypokalemia: Status: Acute 1. Severe electrolytic abnormalities : Will replete magnesium and potassium Monitor electrolytes closely Probably related to poor oral intake. 2.ckd pobable stage 3: Encouraged for p.o. intake and hydration, continue to monitor. 3. Has history of arthritis:? Pain related to that. Will add oxycodone. Bowel regimen 4. Asthma exacerbation: Will add Solu-Medrol and nebs Repeat strep and culture as well as lozenges for throat irritation. 5. Chronic anemia/macrocytic borderline: Will check anemia workup Will monitor H&H, seems to be near 10 recently 6 UTi: started on ceftriaxone day1 blood culture and urine cultures pending renal us DVT prophylaxis with SCD.
[2020-11-13 14:08] LABS: Alanine Aminotransferase 11 U/L (0-31); Alkaline Phosphatase 48 U/L (39-117); Aspartate Amino Transferase 16 U/L (5-31); Bilirubin Direct 0.3 mg/dL (0.0-0.5); Bilirubin Total 0.5 mg/dL (0.0-1.0); Iron 67 mcg/dL (30-160); Percent Iron Saturation 49 % (15-50); Total Iron Binding Capacity 136 mcg/dL (228-428); Total Protein 5.3 g/dL (6.5-8.0); Unsaturated Iron Binding 69 ug/dL
--- NOTE | 2020-11-13 14:24 | PC.NURSE ---
first attempt to call for report unsuccesful.
[2020-11-13 14:29] LABS: Ferritin 382 ng/mL (10-250)
[2020-11-13] MEDS: Divalproex Sodium 250 MG TABLET.DR PO ×2 (15:18→20:45)
[2020-11-13 16:14] LABS: Glucose, Whole Blood 262 mg/dL (60-115)
[2020-11-13] MEDS: cefTRIAXone sodium 1 GM in 0.9 % Sodium Chloride 50 ML IV (16:58)
[2020-11-13] MEDS: 0.9 % Sodium Chloride Flush 3 ML SYRINGE IVFLUSH (16:59)
--- NOTE | 2020-11-13 17:41 | PC.NURSE ---
Nausea, right lower abdominal pain radiating to the right back ,urine has odor, urine positive for nitrates DR Lang prescribed antibiotic for UTI
[2020-11-13] MEDS: Famotidine 20 MG TABLET PO (20:45)
[2020-11-13] MEDS: methylPREDNISolone Sod Succ 40 MG/ML VIAL IVPUSH (20:45)
[2020-11-13] MEDS: Montelukast Sodium 10 MG TABLET PO (20:45)
[2020-11-13 20:47] LABS: Glucose, Whole Blood 200 mg/dL (60-115)
[2020-11-14] VITALS (11 sets, daily range): BP systolic 105–118; BP diastolic 51–76; PULSE 60–94; RESP 18–22; TEMP 35.9–36.9; O2SAT 93–99
[2020-11-14] MEDS: 0.9 % Sodium Chloride Flush 3 ML SYRINGE IVFLUSH ×3 (00:03→16:45)
[2020-11-14] MEDS: oxyCODONE HCl Immed Release 5 MG TABLET PO ×2 (02:33→08:21)
[2020-11-14 04:58] LABS: Folate 4.3 ng/mL (> or = 4.0); Vitamin B12 1176 pg/mL (200-900)
[2020-11-14 06:39] LABS: Anion Gap 15 (12-20); Blood Urea Nitrogen 21 mg/dL (9-16); Calcium 8.3 mg/dL (8.4-10.2); Carbon Dioxide 26 mmol/L (22-29); Chloride 95 mmol/L (96-108); Creatinine Clr Calc Pharmacy 29.4; Estimated Glomerular Filt Rate 36; Glucose Random 176 mg/dL (60-115); Potassium 4.1 mmol/L (3.3-5.1); Sodium 132 mmol/L (135-145)
[2020-11-14] MEDS: Albuterol/Iprat 2.5/0.5MG 3 ML AMPUL.NEB INHALE ×4 (07:07→19:10)
[2020-11-14] MEDS: Fluticasone/Vilanterol 100/25 BLST.W.DEV 1 PUFF INHALE (07:08)
[2020-11-14 07:17] LABS: Hematocrit 26.7 % (37-47); Hemoglobin 9.3 g/dl (12.0-16.0)
[2020-11-14] MEDS: Acetaminophen 325 MG TABLET 650 MG PO ×2 (08:20→14:39)
[2020-11-14] MEDS: Multivitamin TABLET 1 TAB PO (08:21)
[2020-11-14] MEDS: Loratadine 10 MG TABLET PO (08:22)
[2020-11-14] MEDS: Divalproex Sodium 250 MG TABLET.DR PO ×3 (08:22→20:33)
[2020-11-14] MEDS: methylPREDNISolone Sod Succ 40 MG/ML VIAL IVPUSH ×2 (08:22→20:33)
[2020-11-14] MEDS: Famotidine 20 MG TABLET PO ×2 (08:22→20:33)
--- NOTE | 2020-11-14 10:14 | MHC.CM.PN ---
CM met with patient at the bedside who reports she lives alone, amb with a walker and has [employer] services 2 hrs daily with [facility]. Patient also reports she is active with [facility], referral made via [employer]. Patient does have a HCP Christopher Igor [phone] and a copy is on file. Discussed discharge plan, home with resumption of [facility] services. Also discussed STR, patient would like to go home if possible. Instructed discharge plan will be pending PT michelle. Christopher will provide transportation but she also might need assistance. CM will continue to follow patient for discharge needs.
[2020-11-14 10:39] LABS: Alanine Aminotransferase 11 U/L (0-31); Albumin Level 3.2 g/dL (3.5-5.0); Alkaline Phosphatase 53 U/L (39-117); Aspartate Amino Transferase 13 U/L (5-31); Bilirubin Direct 0.2 mg/dL (0.0-0.5); Bilirubin Total 0.4 mg/dL (0.0-1.0); Magnesium 1.9 mg/dL (1.6-2.6); Total Protein 5.6 g/dL (6.5-8.0)
--- NOTE | 2020-11-14 15:26 | MHC.CM.PN ---
CM met with patient to discuss discharge plan since PT is recommending STR with a possible discharge date tomorrow. Patient choices are [facility] and [facility]. Referrals made via [employer]. Patient will need BLS transport.
[2020-11-14] MEDS: Montelukast Sodium 10 MG TABLET PO (20:33)
[2020-11-15] VITALS (12 sets, daily range): BP systolic 105–124; BP diastolic 51–65; PULSE 76–91; RESP 18–20; TEMP 36–37.2; O2SAT 93–100
[2020-11-15] MEDS: 0.9 % Sodium Chloride Flush 3 ML SYRINGE IVFLUSH ×3 (00:21→15:34)
[2020-11-15] MEDS: oxyCODONE HCl Immed Release 5 MG TABLET PO ×3 (04:55→10:56)
[2020-11-15] MEDS: Albuterol/Iprat 2.5/0.5MG 3 ML AMPUL.NEB INHALE ×4 (07:51→20:52)
[2020-11-15] MEDS: Fluticasone/Vilanterol 100/25 BLST.W.DEV 1 PUFF INHALE (07:51)
[2020-11-15] MEDS: methylPREDNISolone Sod Succ 40 MG/ML VIAL IVPUSH (08:44)
[2020-11-15] MEDS: Famotidine 20 MG TABLET PO (08:45)
[2020-11-15] MEDS: Divalproex Sodium 250 MG TABLET.DR PO ×2 (08:45→14:09)
[2020-11-15] MEDS: Multivitamin TABLET 1 TAB PO (08:45)
[2020-11-15] MEDS: Loratadine 10 MG TABLET PO (08:45)
[2020-11-15] MEDS: polyethylene glycoL 3350 17 GM POWD.PACK PO (10:11)
[2020-11-15] MEDS: Acetaminophen 325 MG TABLET 650 MG PO ×2 (10:57→22:58)
[2020-11-15] MEDS: Lactulose 20 GM/30 ML SOLUTION PO (14:10)
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
--- NOTE | 2020-11-15 15:04 | MHC.CM.PN ---
Patient discharge has been placed on hold for today. [facility] did get auth from insurance today which will still be good if patient goes tomorrow. CM will continue to follow for discharge needs.
[2020-11-15] MEDS: Barium Sulfate Oral (Vanilla) 450 ML ORAL.SUSP PO (17:36)
[2020-11-15] MEDS: Barium Sulfate Oral (Berry) 450 ML ORAL.SUSP PO (17:36)
[2020-11-15] MEDS: Lidocaine 4 % Patch ADH..PATCH 1 PATCH TRANSDERMA (17:41)
[2020-11-15] MEDS: Lactated Ringers 1,000 ML 80 ML IVCONT (17:43)
[2020-11-15] MEDS: ondansetron HCL 4 MG/2 ML VIAL IVPUSH (17:52)
[2020-11-15] MEDS: cefTRIAXone sodium 1 GM in 0.9 % Sodium Chloride 50 ML IV (17:52)
--- NOTE | 2020-11-15 19:22 | HO.PM.IMPN ---
Subjective Subjective Date of Service: 11/14/20 Interval History: Generalized weakness and shortness of breath Review of Systems shortness of breath improving slowly. Electrolyte abnormalities are also improved denies any chest pain or abdominal pain or nausea or vomiting or fever chills. Physical Exam Vital Signs: Vital Signs: Last Vital Signs Temp 98.9 F 11/15/20 18:58 Pulse 78 11/15/20 18:58 Resp 18 11/15/20 18:58 BP 124/62 11/15/20 18:58 Pulse Ox 94 11/15/20 18:58 Body Mass Index 25.7 Physical exam: Constitutional: Not in acute distress. Cvs: [id number], [id number] , no murmur res: clear to auscultation ,no rhonchii or wheezing abd: no rebound or guarding ,nt, bs present. ext pulses present , no cyanosis neuro: axo3 , nonfocal. Objective Data Current Medications Generic Name Dose Route Start Last Admin Trade Name Freq PRN Reason Stop Dose Admin Acetaminophen 650 mg 11/13/20 09:42 11/15/20 10:57 Acetaminophen 325 Mg Tablet PO 650 mg Q6H PRN Administration Pain, Mild (Pain Scale 1-3) Acetaminophen 650 mg 11/15/20 14:54 Acetaminophen 325 Mg Tablet PO Q6H PRN Pain, Mild (Pain Scale 1-3) Albuterol/Ipratropium 3 ml 11/13/20 12:00 11/15/20 16:45 Albuterol/Iprat 2.5/0.5mg 3 Ml Ampul.Neb INHALE 3 ml RQID FELICITY Administration Albuterol/Ipratropium 3 ml 11/13/20 09:34 Albuterol/Iprat 2.5/0.5mg 3 Ml Ampul.Neb INHALE Q4H PRN shortness of breath Benzocaine 1 lozenge 11/13/20 09:34 11/15/20 17:43 Throat Lozenge, Medicated Lozenge MUCOUS MEM Not Given Q2H FELICITY Divalproex Sodium 250 mg 11/13/20 15:00 11/15/20 14:09 Divalproex Sodium 250 Mg Tablet.Dr PO 250 mg TID FELICITY Administration Famotidine 20 mg 11/16/20 09:00 Famotidine/Pf 20 Mg/2 Ml Vial IVPUSH DAILY FELICITY Fluticasone/Vilanterol 1 puff 11/14/20 09:00 11/15/20 07:51 Fluticasone/Vilanterol 100/25 Blst.W.Dev INHALE 1 puff RDAILY FELICITY Administration Ceftriaxone Sodium 1 gm/ 50 mls @ 100 mls/hr 11/15/20 18:00 11/15/20 18:32 Sodium Chloride IV Infused Q24H FELICITY Infusion Lactated Ringer's 1,000 mls @ 80 mls/hr 11/15/20 16:45 11/15/20 17:43 Lr IVCONT 80 mls/hr .[id number] FELICITY Administration Lidocaine 1 patch 11/15/20 16:45 11/15/20 17:41 Lidocaine 4 % Patch Adh..Patch TRANSDERMA 1 patch DAILY FELICITY Administration Protocol Loratadine 10 mg 11/14/20 09:00 11/15/20 08:45 Loratadine 10 Mg Tablet PO 10 mg DAILY FELICITY Administration Methylprednisolone Sodium Succinate 40 mg 11/13/20 21:00 11/15/20 08:44 Methylprednisolone Sod Succ 40 Mg/Ml Vial IVPUSH 40 mg BID FELICITY Administration Montelukast Sodium 10 mg 11/13/20 21:00 11/14/20 20:33 Montelukast Sodium 10 Mg Tablet PO 10 mg BEDTIME FELICITY Administration Multivitamins/Vitamin C 1 tab 11/14/20 09:00 11/15/20 08:45 Multivitamin Tablet PO 1 tab DAILY FELICITY Administration Ondansetron HCl 4 mg 11/15/20 09:52 11/15/20 17:52 Ondansetron Hcl 4 Mg/2 Ml Vial IVPUSH 4 mg Q4H PRN Administration Nausea Pharmacy Consult 1 each 11/13/20 06:30 Consult Rx Perform Med Rec MISCELLANE ONCE PRN Consult order Sodium Chloride 3 ml 11/13/20 16:00 11/15/20 15:34 0.9 % Sodium Chloride Flush 3 Ml Syringe IVFLUSH 3 ml QSHIFT FELICITY Administration Tiotropium [place] 1 puff 11/14/20 08:00 11/15/20 13:06 Tiotropium [place] 18 Mcg Cap.W.Dev INHALE Not Given RDAILY [facility] Labs CBC & Chem 7: 11/14/20 06:04 11/14/20 06:04 Microbiology Microbiology Results: Microbiology 11/13/20 10:23 Throat Streptococcus Rapid Screen - Final 11/13/20 10:23 Throat Throat Culture - Final No Group A Beta-hemolytic Streptococci isolated. 11/13/20 03:11 Blood - Venous Blood Culture - Preliminary No growth after 48 hours. 11/13/20 03:11 Blood - Venous Blood Culture - Preliminary No growth after 48 hours. 11/13/20 Unknown Urine clean catch - Clean Catch Midstream Urine Culture - Final Assessment and Plan (1) Asthma: Status: Acute Assessment and Plan: 1. Severe electrolytic abnormalities : seems like magnesium and potassium improvign Monitor electrolytes closely Probably related to poor oral intake. 2.ckd pobable stage 3: Encouraged for p.o. intake and hydration, continue to monitor. 3. Has history of arthritis:? Pain related to that. small dose oxycodone. Bowel regimen 4. Asthma exacerbation: Will add Solu-Medrol and nebs Repeat strep and culture as well as lozenges for throat irritation. 5. Chronic anemia/macrocytic borderline: Will check anemia workup Will monitor H&H, seems to be near 10 recently 6 UTi: started on ceftriaxone day2 blood culture and urine cultures pending renal us DVT prophylaxis with SCD.
--- NOTE | 2020-11-15 19:31 | P.PNIM_ITS ---
Subjective Subjective Date of Service: 11/15/20 Interval History: nausea , poor appetite , no bm's but passing gases. Denies any chest pain or shortness of breath today. Denies any cough phlegm or weakness or numbness. Physical Exam Vital Signs: Vital Signs: Last Vital Signs Temp 98.9 F 11/15/20 18:58 Pulse 78 11/15/20 18:58 Resp 18 11/15/20 18:58 BP 124/62 11/15/20 18:58 Pulse Ox 94 11/15/20 18:58 Body Mass Index 25.7 Physical exam: Cvs: [id number], [id number] , no murmur res: clear to auscultation ,no rhonchii or wheezing abd: no rebound or guarding , bs present.has some suprapubic discomfort ext pulses present , no cyanosis neuro: axo3 , nonfocal. Objective Data Current Medications Generic Name Dose Route Start Last Admin Trade Name Freq PRN Reason Stop Dose Admin Acetaminophen 650 mg 11/13/20 09:42 11/15/20 10:57 Acetaminophen 325 Mg Tablet PO 650 mg Q6H PRN Administration Pain, Mild (Pain Scale 1-3) Acetaminophen 650 mg 11/15/20 14:54 Acetaminophen 325 Mg Tablet PO Q6H PRN Pain, Mild (Pain Scale 1-3) Albuterol/Ipratropium 3 ml 11/13/20 12:00 11/15/20 16:45 Albuterol/Iprat 2.5/0.5mg 3 Ml Ampul.Neb INHALE 3 ml RQID FELICITY Administration Albuterol/Ipratropium 3 ml 11/13/20 09:34 Albuterol/Iprat 2.5/0.5mg 3 Ml Ampul.Neb INHALE Q4H PRN shortness of breath Benzocaine 1 lozenge 11/13/20 09:34 11/15/20 17:43 Throat Lozenge, Medicated Lozenge MUCOUS MEM Not Given Q2H FELICITY Divalproex Sodium 250 mg 11/13/20 15:00 11/15/20 14:09 Divalproex Sodium 250 Mg Tablet. PO 250 mg TID FELICITY Administration Famotidine 20 mg 11/16/20 09:00 Famotidine/Pf 20 Mg/2 Ml Vial IVPUSH DAILY FELICITY Fluticasone/Vilanterol 1 puff 11/14/20 09:00 11/15/20 07:51 Fluticasone/Vilanterol 100/25 Blst.W.Dev INHALE 1 puff RDAILY FELICITY Administration Ceftriaxone Sodium 1 gm/ 50 mls @ 100 mls/hr 11/15/20 18:00 11/15/20 18:32 Sodium Chloride IV Infused Q24H FELICITY Infusion Lactated Ringer's 1,000 mls @ 80 mls/hr 11/15/20 16:45 11/15/20 17:43 Lr IVCONT 80 mls/hr .[id number] FELICITY Administration Lidocaine 1 patch 11/15/20 16:45 11/15/20 17:41 Lidocaine 4 % Patch Adh..Patch TRANSDERMA 1 patch DAILY FELICITY Administration Protocol Loratadine 10 mg 11/14/20 09:00 11/15/20 08:45 Loratadine 10 Mg Tablet PO 10 mg DAILY FELICITY Administration Methylprednisolone Sodium Succinate 40 mg 11/13/20 21:00 11/15/20 08:44 Methylprednisolone Sod Succ 40 Mg/Ml Vial IVPUSH 40 mg BID FELICITY Administration Montelukast Sodium 10 mg 11/13/20 21:00 11/14/20 20:33 Montelukast Sodium 10 Mg Tablet PO 10 mg BEDTIME FELICITY Administration Multivitamins/Vitamin C 1 tab 11/14/20 09:00 11/15/20 08:45 Multivitamin Tablet PO 1 tab DAILY FELICITY Administration Ondansetron HCl 4 mg 11/15/20 09:52 11/15/20 17:52 Ondansetron Hcl 4 Mg/2 Ml Vial IVPUSH 4 mg Q4H PRN Administration Nausea Pharmacy Consult 1 each 11/13/20 06:30 Consult Rx Perform Med Rec MISCELLANE ONCE PRN Consult order Sodium Chloride 3 ml 11/13/20 16:00 11/15/20 15:34 0.9 % Sodium Chloride Flush 3 Ml Syringe IVFLUSH 3 ml QSHIFT FELICITY Administration Tiotropium [place] 1 puff 11/14/20 08:00 11/15/20 13:06 Tiotropium [place] 18 Mcg Cap.W.Dev INHALE Not Given RDAILY [facility] Labs CBC & Chem 7: 11/14/20 06:04 11/14/20 06:04 Microbiology Microbiology Results: Microbiology 11/13/20 10:23 Throat Streptococcus Rapid Screen - Final 11/13/20 10:23 Throat Throat Culture - Final No Group A Beta-hemolytic Streptococci isolated. 11/13/20 03:11 Blood - Venous Blood Culture - Preliminary No growth after 48 hours. 11/13/20 03:11 Blood - Venous Blood Culture - Preliminary No growth after 48 hours. 11/13/20 Unknown Urine clean catch - Clean Catch Midstream Urine Culture - Final Assessment and Plan (1) Asthma: Status: Acute (2) Nausea: Status: Acute Assessment and Plan: 1. Severe electrolytic abnormalities : seems like magnesium and potassium improvign Monitor electrolytes closely Probably related to poor oral intake. 2.ckd pobable stage 3: Encouraged for p.o. intake and hydration, continue to monitor. 3. nausea , no bm's: ? constipation: KUB showed small bowel - borderline distended small bowel loops right abdome which checked with the CT scan seems to be fine. discussed with surgery- will continue to monitor 3. Has history of arthritis:? Pain related to that. hold offoxycodone to avoid constipation. Bowel regimen 4. Asthma exacerbation: will switch to p.o. prednisone in a.m. and nebs Repeat strep and culture as well as lozenges for throat irritation. 5. Chronic anemia/macrocytic borderline: fecal occult blood negative, iron studies seems like anemia of chronic B12 and folate also normal monitor CBC 6 UTi: started on ceftriaxone day2 blood culture and urine cultures pending renal us- no hydronephrosis bladder scan -probably urinary retention, monitor PVR and p.r.n. straight cath
[2020-11-16] VITALS (12 sets, daily range): BP systolic 100–148; BP diastolic 45–74; PULSE 64–92; RESP 16–22; TEMP 35.5–37.1; O2SAT 94–100
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
[2020-11-16 03:38] LABS: Anion Gap 23 (12-20); Blood Urea Nitrogen 35 mg/dL (9-16); Calcium 8.5 mg/dL (8.4-10.2); Carbon Dioxide 19 mmol/L (22-29); Chloride 93 mmol/L (96-108); Creatinine Clr Calc Pharmacy 22.7; Estimated Glomerular Filt Rate 27; Glucose Random 133 mg/dL (60-115); Sodium 130 mmol/L (135-145)
--- NOTE | 2020-11-16 04:38 | PC.NURSE ---
PATIENT LAB VALUES FORWARDED TO ON DUTY HOSPITALIST THAT WERE PREVIOUSLY ORDERED, RESULTS SENT 0350, WILL CONT TO MONITOR
[2020-11-16] MEDS: Lactated Ringers 1,000 ML 80 ML IVCONT (06:21)
[2020-11-16] MEDS: Fluticasone/Vilanterol 100/25 BLST.W.DEV 1 PUFF INHALE (07:58)
[2020-11-16] MEDS: Albuterol/Iprat 2.5/0.5MG 3 ML AMPUL.NEB INHALE ×4 (07:59→20:43)
[2020-11-16] MEDS: Famotidine/PF 20 MG/2 ML VIAL IVPUSH (09:15)
[2020-11-16] MEDS: Multivitamin TABLET 1 TAB PO (09:15)
[2020-11-16] MEDS: Acetaminophen 325 MG TABLET 650 MG PO ×2 (09:15→20:36)
[2020-11-16] MEDS: 0.9 % Sodium Chloride 1,000 ML 100 ML IVCONT (09:15)
[2020-11-16] MEDS: 0.9 % Sodium Chloride Flush 3 ML SYRINGE IVFLUSH (09:15)
[2020-11-16] MEDS: Lidocaine 4 % Patch ADH..PATCH 1 PATCH TRANSDERMA (09:16)
--- NOTE | 2020-11-16 15:34 | P.PNIM_ITS ---
Subjective Subjective Date of Service: 11/17/20 Interval History: c/o nausea constipation resolving Physical Exam Vital Signs: Vital Signs: Last Vital Signs Temp 96.9 F 11/16/20 15:01 Pulse 80 11/16/20 15:01 Resp 22 H 11/16/20 15:01 BP 114/45 L 11/16/20 15:01 Pulse Ox 98 11/16/20 15:01 Body Mass Index 25.7 Gen: in no acute distress HEENT: sclera anicteric, moist mucus membranes Neck: supple Lungs: clear to auscultation bilaterally Heart: regular rate and rhythm, no murmurs Abd: soft, non-tender, non-distended Ext: no edema Skin: warm/well-perfused Neuro: alert and oriented x3, no focal findings Psych: appropriate affect Objective Data Current Medications Generic Name Dose Route Start Last Admin Trade Name Freq PRN Reason Stop Dose Admin Acetaminophen 650 mg 11/13/20 09:42 11/15/20 22:58 Acetaminophen 325 Mg Tablet PO 650 mg Q6H PRN Administration Pain, Mild (Pain Scale 1-3) Acetaminophen 650 mg 11/15/20 14:54 11/16/20 09:15 Acetaminophen 325 Mg Tablet PO 650 mg Q6H PRN Administration Pain, Mild (Pain Scale 1-3) Albuterol/Ipratropium 3 ml 11/13/20 12:00 11/16/20 12:31 Albuterol/Iprat 2.5/0.5mg 3 Ml Ampul.Neb INHALE 3 ml RQID FELICITY Administration Albuterol/Ipratropium 3 ml 11/13/20 09:34 Albuterol/Iprat 2.5/0.5mg 3 Ml Ampul.Neb INHALE Q4H PRN shortness of breath Benzocaine 1 lozenge 11/13/20 09:34 11/16/20 15:07 Throat Lozenge, Medicated Lozenge MUCOUS MEM Not Given Q2H FELICITY Divalproex Sodium 250 mg 11/13/20 15:00 11/15/20 14:09 Divalproex Sodium 250 Mg Tablet.Dr PO 250 mg TID FELICITY Administration Famotidine 20 mg 11/16/20 09:00 11/16/20 09:15 Famotidine/Pf 20 Mg/2 Ml Vial IVPUSH 20 mg DAILY FELICITY Administration Fluticasone/Vilanterol 1 puff 11/14/20 09:00 11/16/20 07:58 Fluticasone/Vilanterol 100/25 Blst.W.Dev INHALE 1 puff RDAILY FELICITY Administration Ceftriaxone Sodium 1 gm/ 50 mls @ 100 mls/hr 11/15/20 18:00 11/15/20 18:32 Sodium Chloride IV Infused Q24H FELICITY Infusion Sodium Chloride 1,000 mls @ 100 mls/hr 11/16/20 08:30 11/16/20 15:19 Ns IVCONT 0 mls/hr .Q10H FELICITY Infusion Lidocaine 1 patch 11/15/20 16:45 11/16/20 09:16 Lidocaine 4 % Patch Adh..Patch TRANSDERMA 1 patch DAILY FELICITY Administration Protocol Loratadine 10 mg 11/14/20 09:00 11/15/20 08:45 Loratadine 10 Mg Tablet PO 10 mg DAILY FELICITY Administration Methylprednisolone Sodium Succinate 40 mg 11/13/20 21:00 11/15/20 08:44 Methylprednisolone Sod Succ 40 Mg/Ml Vial IVPUSH 40 mg BID FELICITY Administration Montelukast Sodium 10 mg 11/13/20 21:00 11/14/20 20:33 Montelukast Sodium 10 Mg Tablet PO 10 mg BEDTIME FELICITY Administration Multivitamins/Vitamin C 1 tab 11/14/20 09:00 11/16/20 09:15 Multivitamin Tablet PO 1 tab DAILY FELICITY Administration Ondansetron HCl 4 mg 11/15/20 09:52 11/15/20 17:52 Ondansetron Hcl 4 Mg/2 Ml Vial IVPUSH 4 mg Q4H PRN Administration Nausea Ondansetron HCl 4 mg 11/16/20 15:32 Ondansetron Odt 4 Mg Tab.Rapdis TRANSLINGU Q6H PRN nausea Pharmacy Consult 1 each 11/13/20 06:30 Consult Rx Perform Med Rec MISCELLANE ONCE PRN Consult order Sodium Chloride 3 ml 11/13/20 16:00 11/16/20 09:15 0.9 % Sodium Chloride Flush 3 Ml Syringe IVFLUSH 3 ml QSHIFT FELICITY Administration Tiotropium [place] 1 puff 11/16/20 09:33 11/16/20 14:17 Tiotropium [place] 18 Mcg Cap.W.Dev INHALE Not Given RDAILY [facility] Labs CBC & Chem 7: 11/14/20 06:04 11/16/20 02:46 Labs: Laboratory Results - last 24 hr 11/16/20 02:46 Sodium 130 L Potassium 5.0 D Chloride 93 L Carbon Dioxide 19 L Anion Gap 23 H BUN 35 H D Creatinine 1.83 H Estim Creat Clear Calc 22.7 Estimated GFR 27 Random Glucose 133 H Calcium 8.5 Magnesium 2.0 Microbiology Microbiology Results: Microbiology 11/13/20 10:23 Throat Streptococcus Rapid Screen - Final 11/13/20 10:23 Throat Throat Culture - Final No Group A Beta-hemolytic Streptococci isolated. 11/13/20 03:11 Blood - Venous Blood Culture - Preliminary No growth after 48 hours. 11/13/20 03:11 Blood - Venous Blood Culture - Preliminary No growth after 48 hours. 11/13/20 Unknown Urine clean catch - Clean Catch Midstream Urine Culture - Final Assessment and Plan (1) Asthma: Status: Acute (2) Nausea: Status: Acute Assessment and Plan: hospital d#4 80yo F with seizures, arthritis, asthma, and CKD3 presented with generalized weakness and dyspnea admitted for severe hypoMg/hypoK, asthma exacerbation # hypoK - repleted # hypoMg - repleted # CKD3 - IV fluid hydration, monitor SCr # abd pain - resolved, no hernia on CT, continue bowel regimen # asthma exacerbation - prednisone, prn nebs # anemia - likely ACKD, Hb stable # UTI - contminated, change to cefuroxime for another 5 days [got 2d of ceftriaxone] # dispo - likely STR
--- NOTE | 2020-11-16 15:35 | PC.NURSE ---
Patient accidentally pulled own peripheral IV out. This nurse, nursing ovens supervisor and Marika RN from ED attempted to obtain new peripheral IV access on patient unsuccessfully. Dr. Alan made aware via [place] [facility], Dr. Alan reported is it ok for patient to be left without IV access and that he will switch medications to by mouth.
[2020-11-16] MEDS: traZODone HCL 25 MG HALFTAB PO (22:27)
[2020-11-17] VITALS (9 sets, daily range): BP systolic 103–146; BP diastolic 58–82; PULSE 62–92; RESP 16–20; TEMP 35.9–36.9; O2SAT 93–99
[2020-11-17 07:51] LABS: MANUAL DIFF FLAG NO
[2020-11-17 07:55] LABS: Basophils Percent Auto 0.3 % (0-2); Eosinophils Absolute Auto 0.1 X10*3/uL (0.0-0.4); Eosinophils Percent Auto 0.7 % (0-4); Hemoglobin 11.3 g/dl (12.0-16.0); Imm Gran Abs Auto 0.27 X10*3/uL (0.00-0.03); Lymphocytes Absolute Auto 2.7 X10*3/uL (1.2-4.9); Lymphocytes Percent Auto 29.4 % (20-40); Mean Corpuscular HGB Conc 33.2 g/dl (31.0-35.0); Mean Corpuscular Hemoglobin 30.5 pg (27.0-33.0); Mean Corpuscular Volume 91.9 fL (80-98); Mean Platelet Volume 11.4 fL (9.4-12.3); Monocytes Absolute Auto 0.9 X10*3/uL (0.1-1.2); Monocytes Percent Auto 9.6 % (2-11); Neutrophils Absolute Auto 5.2 X10*3/uL (2.0-8.3); Platelet Count 161 X10*3/uL (160-400); Red Cell Distribution Width 15.8 % (11.0-16.0); White Blood Count 9.1 X10*3/uL (4.8-10.8)
[2020-11-17] MEDS: Fluticasone/Vilanterol 100/25 BLST.W.DEV 1 PUFF INHALE (07:56)
[2020-11-17] MEDS: Albuterol/Iprat 2.5/0.5MG 3 ML AMPUL.NEB INHALE ×3 (07:56→19:42)
[2020-11-17 08:41] LABS: Blood Urea Nitrogen 26 mg/dL (9-16); Calcium 8.6 mg/dL (8.4-10.2); Creatinine Clr Calc Pharmacy 28.1; Estimated Glomerular Filt Rate 34; Glucose Random 70 mg/dL (60-115); Magnesium 2.1 mg/dL (1.6-2.6)
[2020-11-17 09:04] LABS: Anion Gap 22 (12-20); Carbon Dioxide 20 mmol/L (22-29); Chloride 93 mmol/L (96-108); Potassium 4.6 mmol/L (3.3-5.1); Sodium 130 mmol/L (135-145)
[2020-11-17] MEDS: Lidocaine 4 % Patch ADH..PATCH 1 PATCH TRANSDERMA (09:45)
[2020-11-17] MEDS: Multivitamin TABLET 1 TAB PO (09:46)
[2020-11-17] MEDS: Acetaminophen 325 MG TABLET 650 MG PO ×2 (09:46→16:01)
[2020-11-17] MEDS: predniSONE 20 MG TABLET 40 MG PO (09:46)
[2020-11-17] MEDS: HYDROcodone Bit/Acetam 5/325 TABLET 1 TAB PO ×2 (14:22→22:08)
--- NOTE | 2020-11-17 15:55 | HO.PM.IMPN ---
Subjective Subjective Date of Service: 11/17/20 Interval History: c/o generalized MSK pain which she gets whenever it is about to rain denies abd pain Physical Exam Vital Signs: Vital Signs: Last Vital Signs Temp 98.1 F 11/17/20 15:29 Pulse 84 11/17/20 15:29 Resp 18 11/17/20 15:29 BP 146/82 H 11/17/20 15:29 Pulse Ox 93 11/17/20 15:29 Body Mass Index 25.7 Gen: in no acute distress HEENT: sclera anicteric, moist mucus membranes Neck: supple Lungs: clear to auscultation bilaterally Heart: regular rate and rhythm, no murmurs Abd: soft, non-tender, non-distended Ext: no edema Skin: warm/well-perfused Neuro: alert and oriented x3, no focal findings Psych: appropriate affect Objective Data Current Medications Generic Name Dose Route Start Last Admin Trade Name Freq PRN Reason Stop Dose Admin Acetaminophen 650 mg 11/15/20 14:54 11/17/20 09:46 Acetaminophen 325 Mg Tablet PO 650 mg Q6H PRN Administration Pain, Mild (Pain Scale 1-3) Hydrocodone Bitart/Acetaminophen 1 tab 11/17/20 13:27 11/17/20 14:22 Hydrocodone Bit/Acetam 5/325 Tablet PO 1 tab Q4H PRN Administration mod-sev pain Albuterol/Ipratropium 3 ml 11/13/20 12:00 11/17/20 15:17 Albuterol/Iprat 2.5/0.5mg 3 Ml Ampul.Neb INHALE 3 ml RQID FELICITY Administration Albuterol/Ipratropium 3 ml 11/13/20 09:34 Albuterol/Iprat 2.5/0.5mg 3 Ml Ampul.Neb INHALE Q4H PRN shortness of breath Cefuroxime Axetil 250 mg 11/16/20 16:00 11/17/20 03:41 Cefuroxime Axetil 250 Mg Tablet PO 250 mg Q12H FELICITY Administration Divalproex Sodium 250 mg 11/13/20 15:00 11/15/20 14:09 Divalproex Sodium 250 Mg Tablet.Dr PO 250 mg TID FELICITY Administration Fluticasone/Vilanterol 1 puff 11/14/20 09:00 11/17/20 07:56 Fluticasone/Vilanterol 100/25 Blst.W.Dev INHALE 1 puff RDAILY FELICITY Administration Lidocaine 1 patch 11/15/20 16:45 11/17/20 09:45 Lidocaine 4 % Patch Adh..Patch TRANSDERMA 1 patch DAILY FELICITY Administration Protocol Loratadine 10 mg 11/14/20 09:00 11/15/20 08:45 Loratadine 10 Mg Tablet PO 10 mg DAILY FELICITY Administration Montelukast Sodium 10 mg 11/13/20 21:00 11/14/20 20:33 Montelukast Sodium 10 Mg Tablet PO 10 mg BEDTIME FELICITY Administration Multivitamins/Vitamin C 1 tab 11/14/20 09:00 11/17/20 09:46 Multivitamin Tablet PO 1 tab DAILY FELICITY Administration Ondansetron HCl 4 mg 11/15/20 09:52 11/15/20 17:52 Ondansetron Hcl 4 Mg/2 Ml Vial IVPUSH 4 mg Q4H PRN Administration Nausea Ondansetron HCl 4 mg 11/16/20 15:32 11/16/20 22:27 Ondansetron Odt 4 Mg Tab.Rapdis TRANSLINGU 4 mg Q6H PRN Administration nausea Pharmacy Consult 1 each 11/13/20 06:30 Consult Rx Perform Med Rec MISCELLANE ONCE PRN Consult order Prednisone 40 mg 11/17/20 09:00 11/17/20 09:46 Prednisone 20 Mg Tablet PO 40 mg DAILY FELICITY Administration Sodium Chloride 3 ml 11/13/20 16:00 11/17/20 07:13 0.9 % Sodium Chloride Flush 3 Ml Syringe IVFLUSH Not Given QSHIFT [facility] Tiotropium [place] 1 puff 11/16/20 09:33 11/17/20 07:56 Tiotropium [place] 18 Mcg Cap.W.Dev INHALE 1 puff RDAILY FELICITY Administration Labs CBC & Chem 7: 11/17/20 06:57 11/17/20 06:57 Labs: Laboratory Results - last 24 hr 11/17/20 11/17/20 06:57 06:57 WBC 9.1 RBC 3.70 L Hgb 11.3 L D Hct 34.0 L D MCV 91.9 MCH 30.5 MCHC 33.2 RDW 15.8 Plt Count 161 D MPV 11.4 Immature Gran % (Auto) 3.0 H Neut % (Auto) 57.0 Lymph % (Auto) 29.4 [place] % (Auto) 9.6 Eos % (Auto) 0.7 Baso % (Auto) 0.3 Lymph # (Auto) 2.7 [place] # (Auto) 0.9 Eos # (Auto) 0.1 Baso # (Auto) 0.0 Abs Immat Gran (auto) 0.27 H Absolute Neuts (auto) 5.2 Absolute Nucleated RBC 0.000 Nucleated RBC % (auto) 0.0 Sodium 130 L Potassium 4.6 Chloride 93 L Carbon Dioxide 20 L Anion Gap 22 H BUN 26 H Creatinine 1.48 H Estim Creat Clear Calc 28.1 Estimated GFR 34 Random Glucose 70 D Calcium 8.6 Magnesium 2.1 Microbiology Microbiology Results: Microbiology 11/13/20 10:23 Throat Streptococcus Rapid Screen - Final 11/13/20 10:23 Throat Throat Culture - Final No Group A Beta-hemolytic Streptococci isolated. 11/13/20 03:11 Blood - Venous Blood Culture - Preliminary No growth after 48 hours. 11/13/20 03:11 Blood - Venous Blood Culture - Preliminary No growth after 48 hours. 11/13/20 Unknown Urine clean catch - Clean Catch Midstream Urine Culture - Final Assessment and Plan (1) Asthma: Status: Acute (2) Nausea: Status: Acute Assessment and Plan: hospital d#5 80yo F with seizures, arthritis, asthma, and CKD3 presented with generalized weakness and dyspnea admitted for severe hypoMg/hypoK, asthma exacerbation # hypoK - repleted # hypoMg - repleted # CKD3 - SCr at baseline # abd pain - resolved, no hernia on CT, continue bowel regimen # asthma exacerbation - prednisone d#5, prn nebs # anemia - likely ACKD, Hb stable # UTI - contaminated; cefuroxime d#2/5 # MSK pain - prn hydrocodone/APAP # dispo - likely STR- PT eval in am
[2020-11-17] MEDS: Melatonin 3 MG TABLET 6 MG PO (22:06)
--- NOTE | 2020-11-17 22:45 | PC.NURSE ---
Patient ringing her call monroe multiple times since the start of this RN's shift at 1900, repeatedly asking staff for food. This RN educated the patient earlier in the shift that she has a clear liquid diet and offered the patient several appropriate options for a snack. Patient refusing food options, insisting on having a sandwich. This RN once again verbalized the patients diet order and offered diet appropriate snacks. Patient given jello x3 and tea.
[2020-11-18] VITALS (10 sets, daily range): BP systolic 113–143; BP diastolic 56–74; PULSE 70–93; RESP 18–20; TEMP 35.8–36.9; O2SAT 93–100
[2020-11-18] MEDS: HYDROcodone Bit/Acetam 5/325 TABLET 1 TAB PO ×4 (02:39→20:10)
[2020-11-18] MEDS: Multivitamin TABLET 1 TAB PO (07:38)
[2020-11-18] MEDS: predniSONE 20 MG TABLET 40 MG PO (07:38)
[2020-11-18] MEDS: Lidocaine 4 % Patch ADH..PATCH 1 PATCH TRANSDERMA (07:39)
[2020-11-18] MEDS: Albuterol/Iprat 2.5/0.5MG 3 ML AMPUL.NEB INHALE ×4 (08:05→20:11)
[2020-11-18] MEDS: Fluticasone/Vilanterol 100/25 BLST.W.DEV 1 PUFF INHALE (08:05)
[2020-11-18 11:58] LABS: Anion Gap 19 (12-20); Blood Urea Nitrogen 29 mg/dL (9-16); Calcium 8.8 mg/dL (8.4-10.2); Carbon Dioxide 25 mmol/L (22-29); Chloride 89 mmol/L (96-108); Creatinine Clr Calc Pharmacy 27.7; Estimated Glomerular Filt Rate 33; Glucose Random 161 mg/dL (60-115); Potassium 3.8 mmol/L (3.3-5.1); Sodium 129 mmol/L (135-145)
--- NOTE | 2020-11-18 12:14 | MHC.CM.PN ---
patient continues on a clear liquid diet, tolerating well. Patient's discharge plan per PT is STR, [facility] and [facility] are following. CM will continue to follow patient for discharge needs.
--- NOTE | 2020-11-18 15:35 | MHC.CM.PN ---
Patient's discharge is placed on hold for today r/t a run of SVT on bus driver/monitor. Patient, nurse, MM and [facility] are all aware. CM will continue to follow patient for discharge needs.
[2020-11-18 16:15] LABS: Glucose, Whole Blood 201 mg/dL (60-115)
--- NOTE | 2020-11-18 18:29 | HO.PM.IMPN ---
Subjective Subjective Date of Service: 11/18/20 Interval History: breathing improved 2 episodes of SVT up to 170s this afternoon during which pt c/o palpitations Physical Exam Vital Signs: Vital Signs: Last Vital Signs Temp 97.9 F 11/18/20 15:38 Pulse 79 11/18/20 15:38 Resp 18 11/18/20 15:38 BP 113/57 L 11/18/20 15:38 Pulse Ox 96 11/18/20 15:38 Body Mass Index 25.7 Gen: in no acute distress HEENT: sclera anicteric, moist mucus membranes Neck: supple Lungs: clear to auscultation bilaterally Heart: regular rate and rhythm, no murmurs Abd: soft, non-tender, non-distended Ext: no edema Skin: warm/well-perfused Neuro: alert and oriented x3, no focal findings Psych: appropriate affect Objective Data Current Medications Generic Name Dose Route Start Last Admin Trade Name Freq PRN Reason Stop Dose Admin Acetaminophen 650 mg 11/15/20 14:54 11/17/20 16:01 Acetaminophen 325 Mg Tablet PO 650 mg Q6H PRN Administration Pain, Mild (Pain Scale 1-3) Hydrocodone Bitart/Acetaminophen 1 tab 11/17/20 13:27 11/18/20 14:37 Hydrocodone Bit/Acetam 5/325 Tablet PO 1 tab Q4H PRN Administration mod-sev pain Albuterol/Ipratropium 3 ml 11/13/20 12:00 11/18/20 15:36 Albuterol/Iprat 2.5/0.5mg 3 Ml Ampul.Neb INHALE 3 ml RQID FELICITY Administration Albuterol/Ipratropium 3 ml 11/13/20 09:34 Albuterol/Iprat 2.5/0.5mg 3 Ml Ampul.Neb INHALE Q4H PRN shortness of breath Cefuroxime Axetil 250 mg 11/16/20 16:00 11/18/20 14:38 Cefuroxime Axetil 250 Mg Tablet PO 250 mg Q12H FELICITY Administration Divalproex Sodium 250 mg 11/13/20 15:00 11/15/20 14:09 Divalproex Sodium 250 Mg Tablet.Dr PO 250 mg TID FELICITY Administration Fluticasone/Vilanterol 1 puff 11/14/20 09:00 11/18/20 08:05 Fluticasone/Vilanterol 100/25 Blst.W.Dev INHALE 1 puff RDAILY FELICITY Administration Lidocaine 1 patch 11/15/20 16:45 11/18/20 07:39 Lidocaine 4 % Patch Adh..Patch TRANSDERMA 1 patch DAILY FELICITY Administration Protocol Loratadine 10 mg 11/14/20 09:00 11/15/20 08:45 Loratadine 10 Mg Tablet PO 10 mg DAILY FELICITY Administration Melatonin 6 mg 11/17/20 21:56 11/17/20 22:06 Melatonin 3 Mg Tablet PO 6 mg BEDTIME PRN Administration Insomnia Montelukast Sodium 10 mg 11/13/20 21:00 11/14/20 20:33 Montelukast Sodium 10 Mg Tablet PO 10 mg BEDTIME FELICITY Administration Multivitamins/Vitamin C 1 tab 11/14/20 09:00 11/18/20 07:38 Multivitamin Tablet PO 1 tab DAILY FELICITY Administration Ondansetron HCl 4 mg 11/15/20 09:52 11/15/20 17:52 Ondansetron Hcl 4 Mg/2 Ml Vial IVPUSH 4 mg Q4H PRN Administration Nausea Ondansetron HCl 4 mg 11/16/20 15:32 11/16/20 22:27 Ondansetron Odt 4 Mg Tab.Rapdis TRANSLINGU 4 mg Q6H PRN Administration nausea Pharmacy Consult 1 each 11/13/20 06:30 Consult Rx Perform Med Rec MISCELLANE ONCE PRN Consult order Prednisone 40 mg 11/17/20 09:00 11/18/20 07:38 Prednisone 20 Mg Tablet PO 40 mg DAILY FELICITY Administration Sodium Chloride 3 ml 11/13/20 16:00 11/18/20 14:39 0.9 % Sodium Chloride Flush 3 Ml Syringe IVFLUSH Not Given QSHIFT [facility] Tiotropium [place] 1 puff 11/16/20 09:33 11/18/20 08:05 Tiotropium [place] 18 Mcg Cap.W.Dev INHALE 1 puff RDAILY FELICITY Administration Labs CBC & Chem 7: 11/17/20 06:57 11/18/20 11:21 Labs: Laboratory Results - last 24 hr 11/18/20 11/18/20 11:21 16:07 Sodium 129 L Potassium 3.8 Chloride 89 L Carbon Dioxide 25 Anion Gap 19 BUN 29 H Creatinine 1.50 H Estim Creat Clear Calc 27.7 Estimated GFR 33 POC Glucose 201 H Random Glucose 161 H D Calcium 8.8 Microbiology Microbiology Results: Microbiology 11/13/20 03:11 Blood - Venous Blood Culture - Final No growth after 5 days. 11/13/20 03:11 Blood - Venous Blood Culture - Final No growth after 5 days. 11/13/20 10:23 Throat Streptococcus Rapid Screen - Final 11/13/20 10:23 Throat Throat Culture - Final No Group A Beta-hemolytic Streptococci isolated. 11/13/20 Unknown Urine clean catch - Clean Catch Midstream Urine Culture - Final Assessment and Plan (1) Asthma: Status: Acute (2) Nausea: Status: Acute Assessment and Plan: hospital d#6 80yo F with seizures, arthritis, asthma, and CKD3 presented with generalized weakness and dyspnea admitted for severe hypoMg/hypoK, asthma exacerbation # SVT - TTE. Cardiology consultation # hypoNa - fluid-restrict to 1.2L, recheck BMP in am # hypoK - repleted # hypoMg - repleted # CKD3 - SCr at baseline # abd pain - resolved, no hernia on CT, continue bowel regimen # asthma exacerbation - completed 5d of prednisone. prn nebs. # anemia - likely ACKD, Hb stable # UTI - contaminated; cefuroxime d#3/5 # MSK pain - prn hydrocodone/APAP # dispo - plan [facility] at [facility] updated pt's son/HCP Christopher by phone
[2020-11-18] MEDS: Melatonin 3 MG TABLET 6 MG PO (20:09)
[2020-11-19 03:52] VITALS: BP 121/55; PULSE 76; RESP 20; TEMP 36.8; O2SAT 95
[2020-11-19] MEDS: HYDROcodone Bit/Acetam 5/325 TABLET 1 TAB PO ×3 (03:58→14:56)
[2020-11-19 06:47] LABS: Anion Gap 14 (12-20); Blood Urea Nitrogen 36 mg/dL (9-16); Calcium 8.8 mg/dL (8.4-10.2); Carbon Dioxide 32 mmol/L (22-29); Chloride 88 mmol/L (96-108); Creatinine Clr Calc Pharmacy 21.8; Estimated Glomerular Filt Rate 26; Glucose Random 117 mg/dL (60-115); Magnesium 1.9 mg/dL (1.6-2.6); Potassium 4.2 mmol/L (3.3-5.1); Sodium 130 mmol/L (135-145)
--- NOTE | 2020-11-19 07:30 | CA_ITS ---
Transthoracic Echocardiogram Patient (Last, First, Middle): Jo-Ann Palomino E Gender: Female Date of : 1940 Age: 80 Procedure Date: 11/19/2020 Procedure Type: Transthoracic Echocardiogram Location: [facility] [place] Height: 160.02 cm Weight: 65.77 kg BSA: 1.69 m2 Heart Rate: bpm BP: 121 / 55 mmHg Control Electrician: Referring MD: Ria Alan MD Symptoms: svt Study Quality: Technically Difficult ECG Rhythm: Ventriculary paced rhythm Conclusions: - The left ventricular systolic function is normal. The visually estimated ejection fraction is between 60-65%. - No obvious valvular pathology seen on this study(limited visualization). - Mild pulmonary hypertension is present. Findings Left Ventricle Normal left ventricular cavity size. There is mildly increased left ventricular wall thickness. The left ventricular systolic function is normal. The visually estimated ejection fraction is between 60-65%. Regional wall motion abnormalities can not be excluded due to suboptimal endocardial definition. E/E prime ratio is between 8 and 15 consistent with indeterminate filling pressures. Evidence suggests grade I (mild) diastolic dysfunction. Right Ventricle Mildly increased right ventricular cavity size. There is normal right ventricular systolic function. Atria The left atrium is mildly dilated. The right atrium is normal in size. Aortic Valve The aortic valve was not well visualized. There is no aortic valve stenosis. There is no aortic valve regurgitation. Mitral Valve The mitral valve appears normal. There is no mitral valve regurgitation. There is no mitral valve stenosis. Pulmonic Valve The pulmonic valve was not well visualized. Tricuspid Valve There is mild tricuspid valve regurgitation. The right ventricular systolic pressure is 40 mmHg. Mild pulmonary hypertension is present. Great Vessels The aorta was not well visualized. Venous The inferior vena cava is normal in size and collapses greater than 50% with inspiration. Pericardium/Pleural There is no evidence of pericardial effusion. Prior Study Comparison No prior study available for comparison. Recommendations, Care & Conclusions No obvious valvular pathology seen on this study. Measurements 2D Linear Measurements IVSd: 1.12 0.6-0.9/0.6-1.0 cm LVIDd: 4.87 3.9-5.3/4.2-5.9 cm LVIDd Index: 2.88 2.4-3.2/2.2-3.1 cm/m2 LVIDs: 3.29 2.0-3.6 cm LVPWd: 1.01 0.7-1.1 cm Ao Root: 2.90 2.1-3.5 cm LA Diam: 3.70 2.7-3.8/3.0-4.0 cm LAIDs Index: 2.19 1.5-2.3 cm/m2 LV Mass: 236.60 67-162/88-224 g LV Mass Index: 140.00 43-95/49-115 g/m2 LVOT Diam: 1.90 3.0+(-)1.3 cm 2D Systolic Function EF 4C: 59.00 >55% EF 2C: 73.60 >55% EF BiP: 67.50 >55% Mitral Valve MV Pk E: 0.88 MV PK A: 1.23 MV Decel Time: 250.00 E/A: 0.70 E'Lateral: 10.90 E'Medial: 4.54 E/E' Med: 19.40 E/E' Lat: 8.10 PHT: 73.00 MVA PHT: 3.01 Decel [place]: 3.53 Aortic Valve AoV Pk Miguel Angel: 1.42 AoV Mn Miguel Angel: 0.81 AoV VTI: 0.23 AoV Pk Grad: 8.00 Aov Mn Grad: 3.00 KEZIA Cont.VTI: 2.60 LVOT LVOT Pk Miguel Angel: 0.89 LVOT Mn Miguel Angel: 0.59 LVOT VTI: 0.21 LVOT Pk Grad: 3.00 LVOT Mn Grad: 2.00 LVOT Diam: 1.90 LVOT Area: 2.84 Diastolic Function MV Pk E: 0.88 MV Pk A: 1.23 E/A: 0.70 E'Medial: 4.54 E/E' Med: 19.40 E' Laterial: 10.90 E/E' Lat: 8.10 Tricuspid Valve TR Pk Miguel Angel: 3.05 TR Pk Grad: 37.00 RA Press: 3.00 RVSP: 40.00 Great Vessels Aorta Ao Root-2D: 2.90 2.0-3.7 cm Updated in Other Vendor System with Status of Final Chava Ruelas MD electronically signed on 11/19/2020 11:21:01 AM with status of Final
[2020-11-19 07:32] VITALS: BP 120/67; PULSE 89; RESP 20; TEMP 35.7; O2SAT 97
[2020-11-19] MEDS: Albuterol/Iprat 2.5/0.5MG 3 ML AMPUL.NEB INHALE ×2 (07:42→11:22)
[2020-11-19] MEDS: Fluticasone/Vilanterol 100/25 BLST.W.DEV 1 PUFF INHALE (07:43)
[2020-11-19] MEDS: Multivitamin TABLET 1 TAB PO (08:33)
[2020-11-19] MEDS: 0.9 % Sodium Chloride Flush 3 ML SYRINGE IVFLUSH (08:34)
[2020-11-19] MEDS: Lidocaine 4 % Patch ADH..PATCH 1 PATCH TRANSDERMA (08:34)
--- NOTE | 2020-11-19 09:54 | PM.CNCAR ---
History of Present Illness History of Present Illness Date of Service: 11/19/20 Consult reason: other (SVT) Chief complaint: HYPOMAGNESEMIA,HYPOKALEMIA,BODY ACHES,ASTHMA EXCER Narrative: This is a cardiology consultation regarding SVT and palpitations. It seems that she is here mainly for asthma. She has also been having electrolyte abnormalities including living medium and potassium. She has had some palpitations during which time apparently SVT was noted on telemetry and hence we have been asked to see her. Patient denies any prior history of coronary disease but she has sternotomy scar. Otherwise she has a permanent pacemaker in place and according to her it has been placed more than 10 years ago. She might be going to [facility] for cardiac care but not clear. Otherwise she does feel some palpitations intermittently even while home. No angina. Shortness of breath present. Aches and pains all over the body. Review of Systems Review of Systems: Yes all other systems are reviewed and are negative Cardiovascular: Cardiovascular: Reports as per HPI, Reports no additional cardiovascular complaints, Denies acrocyanosis, Denies cool extremities, Denies painful fingertips, Denies chest pain, Denies chest pain at rest, Denies diaphoresis, Denies syncope, Reports irregular heart rhythm, Denies claudication, Denies leg edema, Denies lightheadedness, Reports palpitations and Reports dyspnea Respiratory: Respiratory: Reports dyspnea Neurologic: Denies syncope Endocrine: Endocrine: Reports palpitations PMFSH Past Medical History Medical History Arthritis Asthma Seizures Family History Family history: reviewed and not pertinent Social History Social History Household Members: None Housing: Apartment Do you presently have visiting nurse or other home services: Yes Alcohol intake: never Smoking Status: Former smoker Tobacco Type: Cigarette Cigarettes Per Day: 4 Smoked in Last 30 Days: No Second Hand Smoke Exposure: No Use of substances other than those prescribed or required for medical reasons: No Currently Displaying Signs/Symptoms of Drug Intoxication Withdrawal: No Have you been hit, kicked, punched, or otherwise hurt by someone within the past year? If so, by whom?: No Do you feel safe in your current relationship?: No Current Relationship Is there a partner from a previous relationship who is making you feel unsafe now?: No Are you made to feel afraid or neglected: No Advance Directives: No Advance Directives Information Provided: No Do you have thoughts of harming others: None Do you have a plan to hurt others: No Plan Recently lost weight without trying: No service: No Current occupational status: disabled Meds Allergies Allergy/AdvReac Type Severity Reaction Status Date / Time aspirin [ASPIRIN] Allergy Unknown VOMITING Verified 08/26/20 21:03 Active Medications: Current Medications Generic Name Dose Route Start Last Admin Trade Name Freq PRN Reason Stop Dose Admin Acetaminophen 650 mg 11/15/20 14:54 11/17/20 16:01 Acetaminophen 325 Mg Tablet PO 650 mg Q6H PRN Administration Pain, Mild (Pain Scale 1-3) Hydrocodone Bitart/Acetaminophen 1 tab 11/17/20 13:27 11/19/20 08:33 Hydrocodone Bit/Acetam 5/325 Tablet PO 1 tab Q4H PRN Administration mod-sev pain Albuterol/Ipratropium 3 ml 11/13/20 12:00 11/19/20 07:42 Albuterol/Iprat 2.5/0.5mg 3 Ml Ampul.Neb INHALE 3 ml RQID FELICITY Administration Albuterol/Ipratropium 3 ml 11/13/20 09:34 Albuterol/Iprat 2.5/0.5mg 3 Ml Ampul.Neb INHALE Q4H PRN shortness of breath Cefuroxime Axetil 250 mg 11/16/20 16:00 11/19/20 03:24 Cefuroxime Axetil 250 Mg Tablet PO 250 mg Q12H FELICITY Administration Divalproex Sodium 250 mg 11/13/20 15:00 11/15/20 14:09 Divalproex Sodium 250 Mg Tablet.Dr PO 250 mg TID FELICITY Administration Fluticasone/Vilanterol 1 puff 11/14/20 09:00 11/19/20 07:43 Fluticasone/Vilanterol 100/25 Blst.W.Dev INHALE 1 puff RDAILY FELICITY Administration Lidocaine 1 patch 11/15/20 16:45 11/19/20 08:34 Lidocaine 4 % Patch Adh..Patch TRANSDERMA 1 patch DAILY FELICITY Administration Protocol Loratadine 10 mg 11/14/20 09:00 11/15/20 08:45 Loratadine 10 Mg Tablet PO 10 mg DAILY FELICITY Administration Melatonin 6 mg 11/17/20 21:56 11/18/20 20:09 Melatonin 3 Mg Tablet PO 6 mg BEDTIME PRN Administration Insomnia Montelukast Sodium 10 mg 11/13/20 21:00 11/14/20 20:33 Montelukast Sodium 10 Mg Tablet PO 10 mg BEDTIME FELICITY Administration Multivitamins/Vitamin C 1 tab 11/14/20 09:00 11/19/20 08:33 Multivitamin Tablet PO 1 tab DAILY FELICITY Administration Ondansetron HCl 4 mg 11/15/20 09:52 11/15/20 17:52 Ondansetron Hcl 4 Mg/2 Ml Vial IVPUSH 4 mg Q4H PRN Administration Nausea Ondansetron HCl 4 mg 11/16/20 15:32 11/16/20 22:27 Ondansetron Odt 4 Mg Tab.Rapdis TRANSLINGU 4 mg Q6H PRN Administration nausea Pharmacy Consult 1 each 11/13/20 06:30 Consult Rx Perform Med Rec MISCELLANE ONCE PRN Consult order Sodium Chloride 3 ml 11/13/20 16:00 11/19/20 08:34 0.9 % Sodium Chloride Flush 3 Ml Syringe IVFLUSH 3 ml QSHIFT [facility] Administration Tiotropium Climax 1 puff 11/16/20 09:33 11/19/20 07:43 Tiotropium Climax 18 Mcg Cap.W.Dev INHALE 1 puff RDAILY FELICITY Administration Home Medications Medication Instructions Recorded Confirmed Last Taken Type acetaminophen 1 tab PO Q6H PRN 11/13/20 11/13/20 11/12/20 History albuterol sulfate [Ventolin HFA] 2 puff INHALATION Q4H PRN 11/13/20 11/13/20 11/12/20 History cetirizine 1 tab PO DAILY 11/13/20 11/13/20 11/12/20 History divalproex 1 tab PO TID 11/13/20 11/13/20 11/12/20 History fluticasone furoate-vilanterol 1 puff PO DAILY 11/13/20 11/13/20 11/12/20 History [Breo Ellipta] montelukast 1 tab PO BEDTIME 11/13/20 11/13/20 11/12/20 History multivitamin 1 tab PO DAILY 11/13/20 11/13/20 11/12/20 History tiotropium bromide [Spiriva with 1 cap INHALATION RDAILY 11/13/20 11/13/20 11/12/20 History HandiHaler] Physical Exam Vital Signs: Vital Signs: Last Vital Signs Temp 96.2 F L 11/19/20 07:32 Pulse 89 11/19/20 07:32 Resp 20 11/19/20 07:32 BP 120/67 11/19/20 07:32 Pulse Ox 97 11/19/20 07:32 Body Mass Index 25.7 Const: General: cooperative, comfortable and no acute distress Orientation/consciousness: patient oriented x3 HENMT: Other: Unremarkable Neck: Neck: Yes normal visual inspection Chest: Chest palpation & inspection: normal inspection of the chest Resp: Auscultation: no crackles, no wheezes and diminished lung sounds Cardio: Jugular venous distension: no JVD Palpation: normal PMI Heart sounds: S1 normal heart sound present, S2 normal heart sound present, no gallops, no murmurs and no rubs GI: Palpation (GI): Soft to palpation Back/Spine/Pelvis: Other: unremarkable Skin: General skin exam: no rashes or lesions noted Neuro: General: patient oriented x3 Extrem: General: Yes no clubbing, cyanosis or edema Psych: Mental Status: mental status grossly normal Results Labs and Meds Result diagrams: 11/17/20 06:57 11/19/20 05:46 Lab results: Laboratory Results - last 24 hr 11/18/20 11/18/20 11/19/20 11:21 16:07 05:46 Sodium 129 L 130 L Potassium 3.8 4.2 Chloride 89 L 88 L Carbon Dioxide 25 32 H Anion Gap 19 14 BUN 29 H 36 H Creatinine 1.50 H 1.90 H Estim Creat Clear Calc 27.7 21.8 Estimated GFR 33 26 POC Glucose 201 H Random Glucose 161 H D 117 H Calcium 8.8 8.8 Magnesium 1.9 ECG Attestation: I personally reviewed and interpreted this ECG as follows: Interpretation: EKG-Baseline artifact; probably sinus rhythm with premature atrial contractions and nonspecific ST-T changes. Assessment and Plan (1) PAC (premature atrial contraction): Status: Acute (2) Atrial tachycardia: Status: Acute (3) Elevated troponin: Status: Acute (4) Asthma: Qualifiers: Asthma severity: unspecified severity Asthma persistence: unspecified Asthma complication type: unspecified Qualified Code(s): J45.909 - Unspecified asthma, uncomplicated Status: Acute (5) CKD (chronic kidney disease): Qualifiers: Chronic kidney disease stage: stage 4 (severe) Qualified Code(s): N18.4 - Chronic kidney disease, stage 4 (severe) Status: Acute (6) Acute hypokalemia: Status: Acute (7) Hypomagnesemia: Status: Acute Telemetry shows very short runs of probably atrial tachycardia but only for a few beats and I do not see anything prolonged. These are benign. Could be related to her underlying respiratory issues. Her electrolytes were also abnormal upon arrival but seems to have improved since that time. Will review the echocardiogram that is getting completed today. Slight troponin elevation on admission but that was also flat. Otherwise no specific therapy is required. 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
[2020-11-19 11:23] VITALS: PULSE 76; O2SAT 95
[2020-11-19 11:26] VITALS: BP 116/55; PULSE 73; RESP 20; TEMP 37; O2SAT 100
[2020-11-19 11:32] VITALS: BP 116/55; PULSE 73; O2SAT 100
--- NOTE | 2020-11-19 12:44 | MHC.CM.PN ---
Patient will be discharged today to [facility] at 3pm via BLS transport. Patient, nurse and son made aware.
--- NOTE | 2020-11-19 14:37 | PM.DS ---
DS: Providers Provider Date of Service: 11/19/20 Date of admission: 11/13/20 09:34 Primary care physician: Dr. Debra Tim DO Consults: 11/15/20 13:47 Consult to General Surgery Routine Consulting Provider: Tai Sandoval Reason for consultation: Distended small bowels Has provider been notified: No 11/18/20 15:58 Consult to Cardiology Routine Consulting Provider: [facility] Cardiovascular Services Reason for consultation: SVT, symptomatic DS: Diagnosis Discharge Diagnosis (1) PAC (premature atrial contraction): Status: Acute (2) Atrial tachycardia: Status: Acute (3) Elevated troponin: Status: Acute (4) CKD (chronic kidney disease): Status: Acute (5) Acute hypokalemia: Status: Acute (6) Hypomagnesemia: Status: Acute (7) Hyponatremia: Status: Acute (8) Asthma exacerbation: Status: Acute (9) UTI (urinary tract infection): Status: Acute DS: Medications Discharge Medications Home Medications: Home Medications Medication Instructions Recorded Confirmed Breo Ellipta 1 puff PO DAILY 11/13/20 11/13/20 Spiriva with HandiHaler 1 cap INHALATION RDAILY 11/13/20 11/13/20 acetaminophen 1 tab PO Q6H PRN 11/13/20 11/13/20 albuterol sulfate [Ventolin HFA] 2 puff INHALATION Q4H PRN 11/13/20 11/13/20 cetirizine 1 tab PO DAILY 11/13/20 11/13/20 divalproex 1 tab PO TID 11/13/20 11/13/20 montelukast 1 tab PO BEDTIME 11/13/20 11/13/20 multivitamin 1 tab PO DAILY 11/13/20 11/13/20 Previous Rx's Medication Instructions Recorded cefuroxime axetil 250 mg PO Q12H #3 tab 11/14/20 omeprazole 20 mg PO DAILY #7 cap 11/14/20 DS: Summary Hospital Course Hospital Course: from admission history and physical by hospitalist Re Lang, 11/13/20: 80-year-old female who was admitted earlier in August due to COVID, came back because of generalized weakness and shortness of breath. When I saw the patient patient still feels generalized weakness as body pains She says she also had initially short of breath which is improving, currently saturating in 96 range on room air. Labs horvath mild anemia, chest x-ray mostly unremarkable except has mild pleural effusion. COVID negative No leukocytosis or fever Severe hypokalemia and mild hypomagnesemia Past medical history: Seizures, asthma, arthritis Past surgical history: Denies Family history: Denies Social history: Comes from home, lives with family, denies any tobacco alcohol or illicit drugs The patient was admitted for asthma exacerbation, hypomagnesemia, and hypokalemia. Asthma was treated with steroid burst, which she completed in the hospital. Magnesium and potassium were repleted. She had mild hyponatremia and fluid restriction to 1.2L was started. Serum creatinine was at her baseline level of CKD3. Anemia was chronic and attributed to anemia of CKD. Troponin was flat and attributed to CKD; she did not have any anginal symptoms or ischemic EKG changes. She had evidence of UTI and was treated with ceftriaxone, transitioned to oral cefuroxime. 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 She was discharged to [facility] for short-term rehabilitation. Repeat labs to be drawn in 2-3 days are requested: CBC with differential, basic metabolic panel, and magnesium. Time Spent with Patient Time attestation: Total time spent providing and/or coordinating discharge services: 40 Discharge coordination time: Greater than 30 minutes Physical Exam Vital Signs: Vital Signs: Last Vital Signs Temp 98.6 F 11/19/20 11:26 Pulse 73 11/19/20 11:32 Resp 20 11/19/20 11:26 BP 116/55 L 11/19/20 11:32 Pulse Ox 100 11/19/20 11:32 Body Mass Index 25.7 Gen: in no acute distress HEENT: sclera anicteric, moist mucus membranes Neck: supple Lungs: clear to auscultation bilaterally Heart: regular rate and rhythm, no murmurs Abd: soft, non-tender, non-distended Ext: no edema Skin: warm/well-perfused Neuro: alert and oriented x3, no focal findings Psych: appropriate affect DS: Data Data Completed and Pending Labs on day of discharge: Laboratory Results WBC 9.1 X10*3/uL (4.8-10.8) 11/17/20 06:57 RBC 3.70 X10*6/uL (4.20-5.50) L 11/17/20 06:57 Hgb 11.3 g/dl (12.0-16.0) L D 11/17/20 06:57 Hct 34.0 % (37-47) L D 11/17/20 06:57 MCV 91.9 fL (80-98) 11/17/20 06:57 MCH 30.5 pg (27.0-33.0) 11/17/20 06:57 MCHC 33.2 g/dl (31.0-35.0) 11/17/20 06:57 RDW 15.8 % (11.0-16.0) 11/17/20 06:57 Plt Count 161 X10*3/uL (160-400) D 11/17/20 06:57 MPV 11.4 fL (9.4-12.3) 11/17/20 06:57 Immature Gran % (Auto) 3.0 % (0.0-0.4) H 11/17/20 06:57 Neut % (Auto) 57.0 % (45-73) 11/17/20 06:57 Lymph % (Auto) 29.4 % (20-40) 11/17/20 06:57 [place] % (Auto) 9.6 % (2-11) 11/17/20 06:57 Eos % (Auto) 0.7 % (0-4) 11/17/20 06:57 Baso % (Auto) 0.3 % (0-2) 11/17/20 06:57 Lymph # (Auto) 2.7 X10*3/uL (1.2-4.9) 11/17/20 06:57 [place] # (Auto) 0.9 X10*3/uL (0.1-1.2) 11/17/20 06:57 Eos # (Auto) 0.1 X10*3/uL (0.0-0.4) 11/17/20 06:57 Baso # (Auto) 0.0 X10*3/uL (0.0-0.2) 11/17/20 06:57 Abs Immat Gran (auto) 0.27 X10*3/uL (0.00-0.03) H 11/17/20 06:57 Absolute Neuts (auto) 5.2 X10*3/uL (2.0-8.3) 11/17/20 06:57 Absolute Nucleated RBC 0.000 X10*3/uL (0.0-0.012) 11/17/20 06:57 Nucleated RBC % (auto) 0.0 /100WBC (0.0-0.2) 11/17/20 06:57 PT 14.7 SEC (10.8-13.0) H 11/13/20 03:11 INR 1.2 (0.9-1.1) H 11/13/20 03:11 Hold Blue Top SEE NOTE 11/13/20 03:11 O2 Saturation 88.0 % 11/13/20 03:10 ABG pH at Pt Temp 7.47 (7.35-7.45) H 11/13/20 03:10 ABG pH (Temp Correct) 7.47 (7.35-7.45) H 11/13/20 03:10 ABG pCO2 at Pt Temp 39 mmHg (32-45) 11/13/20 03:10 ABG pCO2 (Temp Corrct 40 mmHg (32-45) 11/13/20 03:10 ABG pO2 at Pt Temp 62 mmHg (83-108) L 11/13/20 03:10 ABG pO2 (Temp Correct 63 (83-108) L 11/13/20 03:10 ABG HCO3 29 mmol/L (22-26) H 11/13/20 03:10 ABG Base Excess (Actual) 5.4 mmol/L 11/13/20 03:10 Sodium 130 mmol/L (135-145) L 11/19/20 05:46 Potassium 4.2 mmol/L (3.3-5.1) 11/19/20 05:46 Chloride 88 mmol/L (96-108) L 11/19/20 05:46 Carbon Dioxide 32 mmol/L (22-29) H 11/19/20 05:46 Anion Gap 14 (12-20) 11/19/20 05:46 BUN 36 mg/dL (9-16) H 11/19/20 05:46 Creatinine 1.90 mg/dL (0.5-1.4) H 11/19/20 05:46 Estim Creat Clear Calc 21.8 11/19/20 05:46 Estimated GFR 26 11/19/20 05:46 POC Glucose 201 mg/dL (60-115) H 11/18/20 16:07 Random Glucose 117 mg/dL (60-115) H 11/19/20 05:46 Lactic Acid 1.8 mmol/L (0.5-2.0) 11/13/20 03:11 Calcium 8.8 mg/dL (8.4-10.2) 11/19/20 05:46 Magnesium 1.9 mg/dL (1.6-2.6) 11/19/20 05:46 Iron 67 mcg/dL (30-160) 11/13/20 06:04 TIBC 136 mcg/dL (228-428) L 11/13/20 06:04 % Saturation 49 % (15-50) 11/13/20 06:04 Unsat Iron Binding 69 ug/dL 11/13/20 06:04 Ferritin 382 ng/mL (10-250) H 11/13/20 06:04 Total Bilirubin 0.4 mg/dL (0.0-1.0) 11/14/20 06:04 Direct Bilirubin 0.2 mg/dL (0.0-0.5) 11/14/20 06:04 AST 13 U/L (5-31) 11/14/20 06:04 ALT 11 U/L (0-31) 11/14/20 06:04 Alkaline Phosphatase 53 U/L (39-117) 11/14/20 06:04 Troponin I High Sens 34.0 ng/L (<3.5-17.0) H 11/13/20 06:04 B-Natriuretic Peptide 89 pg/mL (<100) 11/13/20 03:11 Total Protein 5.6 g/dL (6.5-8.0) L 11/14/20 06:04 Albumin 3.2 g/dL (3.5-5.0) L 11/14/20 06:04 Vitamin B12 1176 pg/mL (200-900) H 11/13/20 06:04 Folate 4.3 ng/mL (> or = 4.0) 11/13/20 06:04 Urine Color STRAW 11/13/20 10:23 Urine Appearance HAZY 11/13/20 10:23 Urine pH 5.5 (5.0-8.0) 11/13/20 10:23 Ur Specific [place] 1.010 (1.005-1.025) 11/13/20 10:23 Urine Protein NEG MG/DL (NEG-TRACE) 11/13/20 10:23 Urine Glucose (UA) NEG MG/DL (NEG) 11/13/20 10:23 Urine Ketones NEG MG/DL (NEG) 11/13/20 10:23 Urine Blood NEG (NEG) 11/13/20 10:23 Urine Nitrite POS (NEG) H 11/13/20 10:23 Ur Leukocyte Esterase TRACE (NEG) H 11/13/20 10:23 Urine RBC 0-2 /HPF (0) 11/13/20 10:23 Urine WBC 10-14 /HPF (0-4) H 11/13/20 10:23 Ur Squamous Epith Cells 2+ /LPF 11/13/20 10:23 Urine Bacteria 2+ /LPF 11/13/20 10:23 Urine Mucus 1+ /LPF 11/13/20 10:23 Stool Occult Blood NEGATIVE (NEGATIVE) 11/13/20 05:43 COVID-19 (GHANSHYAM) Negative (Negative) 11/13/20 03:10 COVID-19 Clin Com See Note 11/13/20 03:10 Impressions Chest X-Ray 11/13/20 01:56 IMPRESSION: Bilateral lower lobe streaky airspace opacities likely reflect segmental atelectasis. Trace bilateral pleural effusions. Renal Ultrasound 11/14/20 11:04 IMPRESSION: Extremely limited study. No hydronephrosis is seen. No calculi or lesions in the visualized parenchyma. KUB X-Ray 11/15/20 13:09 IMPRESSION: Scattered gas in bowel with borderline distended small bowel loops right abdomen. No pneumatosis or constipation. Abdomen/Pelvis CT 11/15/20 17:30 IMPRESSION: 1. Cholelithiasis without cholecystitis. 2. Incidentally noted hepatic cysts, colonic diverticular changes and hysterectomy. 3. No evidence of small bowel obstruction TTE 11/19/20 - The left ventricular systolic function is normal. The visually estimated ejection fraction is between 60-65%. - No obvious valvular pathology seen on this study(limited visualization). - Mild pulmonary hypertension is present. Discharge Plan Discharge Patient Disposition: [facility] Referrals: Woody Orta [Outside] Physician,Unknown [Primary Care Provider] - Discharge Medications: New cefuroxime axetil 250 mg tablet 250 mg PO Q12H Qty: 3 RF: 0 omeprazole 20 mg capsule,delayed release(DR/EC) 20 mg PO DAILY Qty: 7 RF: 0 Continued multivitamin Tablet 1 tab PO DAILY RF: 0 divalproex 250 mg tablet,delayed release (DR/EC) 1 tab PO TID RF: 0 cetirizine 10 mg tablet 1 tab PO DAILY RF: 0 acetaminophen 500 mg tablet 1 tab PO Q6H PRN (Reason: pain) RF: 0 montelukast 10 mg tablet 1 tab PO BEDTIME RF: 0 Breo Ellipta 100-25 mcg/dose blister with device 1 puff PO DAILY RF: 0 albuterol sulfate [Ventolin HFA] 90 mcg/actuation HFA aerosol inhaler 2 puff inhalation Q4H PRN (Reason: Shortness Of Breath/Wheezing) RF: 0 Spiriva with HandiHaler 18 mcg capsule, w/inhalation device 1 cap inhalation RDAILY RF: 0 Discharge Orders: Discharge Order (Routine); Ordered 11/19/20 Ordered By: Ria Alan Diet: advance to usual diet and other Activity on Discharge: As tolerated Stand Alone Forms: Patient Portal Discharge page Other Ambulatory Orders: Basic Metabolic Panel Fasting (Routine) Timeframe: 20201118 Facility: [facility] - Location: Laboratory Ordered By: Muriel Lang Complete Blood Count no Diff (Routine) Timeframe: 20201118 Facility: [facility] - Location: Laboratory Ordered By: Muriel Lang Magnesium (Routine) Timeframe: 20201118 Facility: [facility] - Location: Laboratory Ordered By: Muriel Lang Activity Restrictions/Additional Instructions: fluid restriction to 1.2L/day recheck in 2-3 days: CBC with differential, basic metabolic panel, magnesium level Care Plan Goals: Patient came with generalized weakness, poor oral intake, UTI, hypomagnesemia and hypokalemia: Patient was started on hydration, electrolyte repeated, started also on ceftriaxone for UTI: Subsequently patient improved significantly and antibiotics switched to p.o. Ceftin. Probably generalized weakness and electrolyte abnormalities due to poor intake which is already improving. chronic anemia : work seems like ch disease related(ckd stage3): h/h stable around 9.3/26.7. moniter cbc with pcp and further workup outpatient as per PCP. Restrict fluid to 1.2L day due to hyponatremia Completed prednisone burst for asthma as inpatient. Found to have short bursts of atrial tachycardia to the 170s: benign per Cardiology. no structural heart disease on echo UTI: take 3 more doses of cefuroxime 250 mg bid Health Concerns: As above. Plan of Treatment: As above. Assessment: As above. Patient Instructions: Asthma (DC)
== END 2020-11-19 15:04 | disposition skilled nursing facility (03) | DRG 202 ==
LOC: HO.ED 06:14 → HO.EDOVER 13:29 → HO.IMC 13:46
PROVIDERS: Internal Medicine; Admitting Provider Internal Medicine; Emergency Provider Emergency Medicine Emergency Medical Services; PCP Internal Medicine; Visit Provider Family Medicine
DX: J45.901 Unspecified asthma with (acute) exacerbation (principal); N39.0 Urinary tract infection, site not specified; I47.1 Supraventricular tachycardia; E87.1 Hypo-osmolality and hyponatremia; I12.9 Hypertensive chronic kidney disease with stage 1 through stage 4 chronic kidney disease, or unspecified chronic kidney disease; D63.1 Anemia in chronic kidney disease; E87.6 Hypokalemia; E83.42 Hypomagnesemia; N18.30 Chronic kidney disease, stage 3 unspecified; Z86.16 Personal history of COVID-19; M19.90 Unspecified osteoarthritis, unspecified site; Z20.822 Contact with and (suspected) exposure to COVID-19; Z87.891 Personal history of nicotine dependence; Z88.6 Allergy status to analgesic agent; Z79.899 Other long term (current) drug therapy
CPT/HCPCS: 36415; 71045; 74018; 74176; 76775; 80048; 80076; 81001; 81003; 82272; 82607; 82728; 82746; 82947; 83540; 83605; 83735; 83880; 84484; 85014; 85018; 85025; 85610; 87040; 87071; 87086; 87635; 87880; 93005; 93306; 94640; 96365; 96368; 96375; 97110; 97116; 97162; 99285; J0696; J2405; J2920; J2930; J3475

== ENCOUNTER 2020-11-20 07:03 | Outpatient (REF) | payer MEDICARE, SELFPAY ==
[2020-11-20 07:37] LABS: Hematocrit 25.6 % (37-47); Hemoglobin 8.7 g/dl (12.0-16.0); Mean Corpuscular Hemoglobin 30.6 pg (27.0-33.0); Mean Corpuscular Volume 90.1 fL (80-98); Mean Platelet Volume 11.7 fL (9.4-12.3); Platelet Count 154 X10*3/uL (160-400); Red Blood Count 2.84 X10*6/uL (4.20-5.50); Red Cell Distribution Width 15.3 % (11.0-16.0); White Blood Count 9.5 X10*3/uL (4.8-10.8)
[2020-11-20 08:03] LABS: Alanine Aminotransferase 20 U/L (0-31); Albumin Level 3.2 g/dL (3.5-5.0); Alkaline Phosphatase 60 U/L (39-117); Anion Gap 13 (12-20); Aspartate Amino Transferase 19 U/L (5-31); Bilirubin Total 0.3 mg/dL (0.0-1.0); Blood Urea Nitrogen 33 mg/dL (9-16); Calcium 8.6 mg/dL (8.4-10.2); Carbon Dioxide 30 mmol/L (22-29); Chloride 94 mmol/L (96-108); Estimated Glomerular Filt Rate 27; Glucose Random 93 mg/dL (60-115); Potassium 4.1 mmol/L (3.3-5.1); Sodium 133 mmol/L (135-145); Total Protein 5.1 g/dL (6.5-8.0)
== END 2020-11-20 07:04 | disposition home or self-care (01) ==
LOC: HO.MMNH1L 07:03
PROVIDERS: Visit Provider Family Medicine
DX: R06.02 Shortness of breath (principal); R53.1 Weakness
CPT/HCPCS: 36415; 80053; 85027

== ENCOUNTER 2020-11-25 12:45 | Outpatient (REF) | payer MEDICARE, SELFPAY ==
[2020-11-25 08:20] LABS: Hematocrit 27.3 % (37-47); Hemoglobin 8.7 g/dl (12.0-16.0); Mean Corpuscular HGB Conc 31.9 g/dl (31.0-35.0); Mean Corpuscular Hemoglobin 29.3 pg (27.0-33.0); Mean Corpuscular Volume 91.9 fL (80-98); Mean Platelet Volume 11.9 fL (9.4-12.3); Platelet Count 183 X10*3/uL (160-400); Red Blood Count 2.97 X10*6/uL (4.20-5.50); Red Cell Distribution Width 16.1 % (11.0-16.0); White Blood Count 7.6 X10*3/uL (4.8-10.8)
[2020-11-25 09:12] LABS: Anion Gap 18 (12-20); Blood Urea Nitrogen 25 mg/dL (9-16); Calcium 9.1 mg/dL (8.4-10.2); Carbon Dioxide 28 mmol/L (22-29); Chloride 98 mmol/L (96-108); Estimated Glomerular Filt Rate 37; Glucose Random 80 mg/dL (60-115); Potassium 3.9 mmol/L (3.3-5.1); Sodium 140 mmol/L (135-145)
== END 2020-11-25 12:46 | disposition home or self-care (01) ==
LOC: HO.MMNH1L 12:45
PROVIDERS: Visit Provider Family Medicine
DX: R06.02 Shortness of breath (principal); R53.1 Weakness
CPT/HCPCS: 36415; 80048; 85027

== ENCOUNTER 2020-12-02 05:00 | Outpatient (REF) | payer MEDICARE, SELFPAY | END 2020-12-02 05:01 | disposition home or self-care (01) | LOC: HO.MMNH1L 05:00 | PROVIDERS: Visit Provider Family Medicine | DX: Z13.89 Encounter for screening for other disorder (principal) ==

== ENCOUNTER 2020-12-02 06:36 | Outpatient (REF) | payer MEDICARE, SELFPAY ==
[2020-12-02 07:06] LABS: Hematocrit 27.8 % (37-47); Hemoglobin 9.1 g/dl (12.0-16.0); Mean Corpuscular HGB Conc 32.7 g/dl (31.0-35.0); Mean Corpuscular Hemoglobin 30.1 pg (27.0-33.0); Mean Corpuscular Volume 92.1 fL (80-98); Platelet Count 189 X10*3/uL (160-400); Red Blood Count 3.02 X10*6/uL (4.20-5.50); Red Cell Distribution Width 16.5 % (11.0-16.0)
[2020-12-02 07:26] LABS: Anion Gap 15 (12-20); Blood Urea Nitrogen 22 mg/dL (9-16); Calcium 8.8 mg/dL (8.4-10.2); Carbon Dioxide 30 mmol/L (22-29); Chloride 100 mmol/L (96-108); Estimated Glomerular Filt Rate 35; Glucose Random 75 mg/dL (60-115); Potassium 4.1 mmol/L (3.3-5.1); Sodium 141 mmol/L (135-145)
== END 2020-12-02 06:37 | disposition home or self-care (01) ==
LOC: HO.MMNH1L 06:36
PROVIDERS: Visit Provider Family Medicine
DX: R06.02 Shortness of breath (principal); R53.1 Weakness
CPT/HCPCS: 36415; 80048; 85027

== ENCOUNTER 2020-12-09 06:48 | Outpatient (REF) | payer MEDICARE, SELFPAY ==
[2020-12-09 07:40] LABS: Hematocrit 29.5 % (37-47); Hemoglobin 9.5 g/dl (12.0-16.0); Mean Corpuscular HGB Conc 32.2 g/dl (31.0-35.0); Mean Corpuscular Hemoglobin 29.8 pg (27.0-33.0); Mean Corpuscular Volume 92.5 fL (80-98); Mean Platelet Volume 11.9 fL (9.4-12.3); Platelet Count 249 X10*3/uL (160-400); Red Blood Count 3.19 X10*6/uL (4.20-5.50); Red Cell Distribution Width 15.9 % (11.0-16.0); White Blood Count 5.2 X10*3/uL (4.8-10.8)
[2020-12-09 08:25] LABS: Anion Gap 14 (12-20); Blood Urea Nitrogen 24 mg/dL (9-16); Carbon Dioxide 29 mmol/L (22-29); Chloride 100 mmol/L (96-108); Estimated Glomerular Filt Rate 32; Glucose Random 79 mg/dL (60-115); Sodium 139 mmol/L (135-145)
== END 2020-12-09 06:49 | disposition home or self-care (01) ==
LOC: HO.MMNH1L 06:48
PROVIDERS: Visit Provider Family Medicine
DX: R06.02 Shortness of breath (principal); R53.1 Weakness
CPT/HCPCS: 36415; 80048; 85027

== ENCOUNTER 2020-12-16 10:20 | Outpatient (REF) | payer MEDICARE, SELFPAY ==
[2020-12-16 07:58] LABS: Hematocrit 33.1 % (37-47); Hemoglobin 10.5 g/dl (12.0-16.0); Mean Corpuscular HGB Conc 31.7 g/dl (31.0-35.0); Mean Corpuscular Hemoglobin 29.7 pg (27.0-33.0); Mean Corpuscular Volume 93.5 fL (80-98); Mean Platelet Volume 11.7 fL (9.4-12.3); Platelet Count 230 X10*3/uL (160-400); Red Blood Count 3.54 X10*6/uL (4.20-5.50)
[2020-12-16 08:20] LABS: Anion Gap 16 (12-20); Blood Urea Nitrogen 28 mg/dL (9-16); Calcium 9.1 mg/dL (8.4-10.2); Carbon Dioxide 28 mmol/L (22-29); Chloride 100 mmol/L (96-108); Estimated Glomerular Filt Rate 27; Glucose Random 74 mg/dL (60-115); Potassium 4.4 mmol/L (3.3-5.1); Sodium 140 mmol/L (135-145)
== END 2020-12-16 10:21 | disposition home or self-care (01) ==
LOC: HO.MMNH2L 10:20
PROVIDERS: Visit Provider Family Medicine
DX: R06.02 Shortness of breath (principal); R53.1 Weakness
CPT/HCPCS: 36415; 80048; 85027

== ENCOUNTER 2020-12-23 00:26 | Outpatient (REF) | payer MEDICARE, SELFPAY | END 2020-12-23 00:27 | disposition home or self-care (01) | LOC: HO.MMNH2L 00:26 | PROVIDERS: Visit Provider Family Medicine | DX: Z13.89 Encounter for screening for other disorder (principal) ==